=== PATIENT | male | born 1950 | race Caucasian/White ===

== ENCOUNTER 2016-05-01 09:47 | Inpatient (IN) | payer OTHER, BC ==
[2016-05-01 09:57] VITALS: BMI 38.9
--- NOTE | 2016-05-01 10:02 | PDOC ---
History of Present Illness - General History Source: Patient Exam Limitations: No Limitations - History of Present Illness Initial Comments: 05/01/16 11:34 The patient is a 66 year old male and presenting with his , with a significant past medical history of AFIB (Prodaxon), HTN and gastric bypass, who presents to the emergency department with right arm numbness and upper lip numbness onset this morning at 4am. He denies any weakness, slurred speech, facial droop or arm drift. The patient denies chest pain, shortness of breath, headache and dizziness. Denies fever, chills, nausea, vomit, diarrhea and constipation. Allergies: None Past surgical history: Gastric bypass. Social history: No alcohol, tobacco or drug use reported <Israel Franklin - Last Filed: 05/01/16 11:53> <Neville Zavala - Last Filed: 05/01/16 16:23> - General Chief Complaint: CVA/TIA Stated Complaint: RT HAND NUMBNESS Past History <Israel Franklin - Last Filed: 05/01/16 11:53> - Past Medical History Anemia: No Asthma: No Cancer: No Cardiac Disorders: Yes (AFIB) CVA: No COPD: No CHF: No Dementia: No Diabetes: No GI Disorders: Yes (gastric bypass) Disorders: No HTN: Yes Hypercholesterolemia: No Liver Disease: No Suicide Attempt (Hx): No Seizures: No Thyroid Disease: No - Surgical History Abdominal Surgery: (GASTRIC BYPASS) Appendectomy: No Cardiac Surgery: No Cholecystectomy: No Lung Surgery: No Neurologic Surgery: No Orthopedic Surgery: Yes (FX (L) ANKLE) - Psycho/Social/Smoking Cessation Hx Anxiety: No Suicidal Ideation: No Smoking Status: No Smoking History: Never smoked Have you smoked in the past 12 months: No Number of Cigarettes Smoked Daily: 0 Information on smoking cessation initiated: No Hx Alcohol Use: No Drug/Substance Use Hx: No Substance Use Type: None Hx Substance Use Treatment: No <Neville Zavala - Last Filed: 05/01/16 16:23> - Past Medical History Allergies/Adverse Reactions: Allergies Allergy/AdvReac Type Severity Reaction Status Date / Time No Known Allergies Allergy Verified 05/01/16 09:51 Home Medications: Ambulatory Orders Metoprolol Tartrate [Lopressor] 50 mg PO BID 05/03/11 Dabigatran Etexilate Mesylate [Pradaxa -] 150 mg PO BID cap 11/17/14 Amlodipine/Valsartan [Exforge 10-160 mg Tablet] 1 tab PO DAILY 05/01/16 Aspirin [ASA -] 81 mg PO DAILY 05/01/16 Review of Systems - Review of Systems Able to Perform ROS?: Yes Comments:: 05/01/16 11:34 GENERAL/CONSTITUTIONAL: No fever or chills. No weakness. HEAD, EYES, EARS, NOSE AND THROAT: No change in vision. No ear pain or discharge. No sore throat. CARDIOVASCULAR: No chest pain or shortness of breath RESPIRATORY: No cough, wheezing, or hemoptysis. GASTROINTESTINAL: No nausea, vomiting, diarrhea or constipation. GENITOURINARY: No dysuria, frequency, or change in urination. MUSCULOSKELETAL: No joint or muscle swelling or pain. No neck or back pain. SKIN: No rash NEUROLOGIC: +Numbness on right upper extremity and upper lip. No headache, vertigo, loss of consciousness. ENDOCRINE: No increased thirst. No abnormal weight change HEMATOLOGIC/LYMPHATIC: No anemia, easy bleeding, or history of blood clots. ALLERGIC/IMMUNOLOGIC: No hives or skin allergy. <Israel Franklin - Last Filed: 05/01/16 11:53> *Physical Exam - Vital Signs Last Vital Signs Temp Pulse Resp BP Pulse Ox 97.8 F 77 18 169/81 98 05/01/16 09:53 05/01/16 09:53 05/01/16 09:53 05/01/16 09:53 05/01/16 10:16 - Physical Exam Comments: 05/01/16 11:35 GENERAL: Awake, alert, and fully oriented, in no acute distress HEAD: No signs of trauma, normocephalic, atraumatic EYES: PERRLA, EOMI, sclera anicteric, conjunctiva clear ENT: Auricles normal inspection, hearing grossly normal, nares patent, oropharynx clear without exudates. Moist mucosa NECK: Normal ROM, supple, no lymphadenopathy, JVD, or masses LUNGS: No distress, speaks full sentences, clear to auscultation bilaterally HEART: Regular rate and rhythm, normal S1 and S2, no murmurs, rubs or gallops, peripheral pulses normal and equal bilaterally. ABDOMEN: Soft, nontender, normoactive bowel sounds. No guarding, no rebound. No masses EXTREMITIES: Normal inspection, Normal range of motion, no edema. No clubbing or cyanosis. NEUROLOGICAL: Cranial nerves II through XII grossly intact. Normal speech, normal gait. Sensory deficits right hand and around lip. SKIN: Warm, Dry, normal turgor, no rashes or lesions noted. <Israel Franklin - Last Filed: 05/01/16 11:53> - Vital Signs Last Vital Signs Temp Pulse Resp BP Pulse Ox 97.8 F 77 18 169/81 100 05/01/16 09:53 05/01/16 09:53 05/01/16 09:53 05/01/16 09:53 05/01/16 09:53 <Neville Zavala - Last Filed: 05/01/16 16:23> Critical Care Time/MDM Note - Medical Decision Making Note: 05/01/16 11:36 Chest X-Ray Reviewed by: Dr. Rizwan Gaffney Impression: No acute intrathoracic abnormality see and no significant interval change since prior exam. Dr. Karlos Rose was called regarding the patient at 10:30am. Dr. Abbey Moss covering. Dr. Moss was consulted regarding the patient at 10:34am [phone] Dr. Naeem Juarez was consulted regarding the patient at 10:38am [phone] <Israel Franklin - Last Filed: 05/01/16 11:53> Discharge Disposition <Israel Franklin - Last Filed: 05/01/16 11:53> - Discharge Dispostion Admit: Yes <Neville Zavala - Last Filed: 05/01/16 16:23> - Diagnosis Cerebrovascular accident (CVA) - Discharge Dispostion Condition at time of disposition: Stable - Referrals Referrals: Karlos Rose MD [Primary Care Provider] -
[2016-05-01 10:50] LABS: BASOPHIL 0.6 % (0-2.0); EOSINOPHIL 2.5 % (0-4.5); MCH 31.8 pg (25.7-33.7); MCHC 32.9 g/dl (32.0-35.9); MEAN CELL VOLUME 96.7 fl (80-96); MEAN PLT VOLUME 9.1 fl (7.5-11.1); NEUTROPHILS 48.2 % (42.8-82.8); PLATELET COUNT 177 K/MM3 (134-434); RDW 15.2 % (11.9-15.9); WHITE BLOOD COUNT 4.2 K/mm3 (4.0-10.0)
[2016-05-01 11:22] LABS: ALBUMIN 3.8 g/dl (3.4-5.0); ANION GAP 6 (8-16); CALCIUM 8.7 mg/dL (8.5-10.1); CO2 29 mmol/L (21-32); GLUCOSE,RANDOM 107 mg/dL (74-106); SGOT/AST 23 U/L (15-37); SGPT/ALT 24 U/L (12-78)
[2016-05-01 11:23] LABS: INR 1.13 (0.82-1.09); PROTHROMBIN TIME (PATIENT) 12.5 SEC (9.98-11.88)
[2016-05-01 11:27] LABS: ALK PHOS 70 U/L (45-117); BILIRUBIN,TOTAL 0.5 mg/dL (0.2-1.0); CREATININE 0.9 mg/dL (0.7-1.3); TOT PROT 7.3 g/dl (6.4-8.2); TROPONIN I 0.07 ng/ml (0.00-0.05)
[2016-05-01] MEDS ORDERED: PATIENT'S OWN MEDICATION (NON-FORMULARY) (Amlodipine/Valsartan [Exforge 10-160 Mg Tablet] PO SCH (19:45)
[2016-05-01] MEDS ORDERED: ALPRAZolam 0.25 MG TABLET PO PRN (21:19)
--- NOTE | 2016-05-01 21:31 | CONSULT ---
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 Maintained on Pradoxa, diovan, metoprolol, norvasc, lipitor and ASA. Depressed since of his daughter at age 26 from endometrial cancer in 2014. Three days ago, he recovered his 5 yo grandson by court order. Last night at 4 AM he was awake because of "thinking too much about the politician." He went to the kitchen and poured OJ without difficulty. Then, he developed numbness of the fingers of the right hand and around his mouth. Denies SOB, chest pain, etc. Symptoms had fully resolved by 1 PM In ER BP was 160/100. Weight was [address] of head (reviewed): Normal. Some calcification of the basilar artery MRI of Brain (reviewed): Scattered microvascular changes. EXAM: Obese. No bruits. Cor reg (?). Psoriatic changes over elbows. NEURO: Alert, Normal MS and speech CN: II-XII: Normal. Motor: Min upward drift on right. Normal strength. Normal reflexes. Normal UMAIR's. Downgoing toes. Coord: No FTN dystaxia Sensory: Normal vibration in feet. Romberg neg. Decreased pinprick over tips of Dig II, and III on Right. Gait: Normal; IMP: Left cerebral TIA vs lacunar infarct. Patient may also have a right carpal tunnel syndrome. Depression/anxiety. SUGGEST: Keep BP in 110-120/70-80 range. Test glucose tolerance. Agree with Carotid duplex Dopplers tonight. Continue pradoxa. Weight loss Neuro f/u as out patient. Thank you very much, Naeem Juarez MD
[2016-05-01] MEDS ORDERED: ATORVASTATIN CA 10 MG TABLET (FP) PO SCH (22:00)
[2016-05-01] MEDS: METOPROLOL TARTRATE 50 MG TABLET (FP) PO SCH (22:18)
[2016-05-01] MEDS: VALSARTAN 160 MG TABLET (UD) PO SCH (22:18)
[2016-05-01] MEDS: amLODIPine BESYLATE 10 MG TABLET (FP) PO SCH (22:18)
--- NOTE | 2016-05-01 23:15 | EKG ---
Test Reason : Blood Pressure : / mmHG Vent. Rate : 062 BPM Atrial Rate : 091 BPM P-R Int : 000 ms QRS Dur : 134 ms QT Int : 428 ms P-R-T Axes : 000 032 030 degrees QTc Int : 434 ms ATRIAL FIBRILLATION RIGHT BUNDLE BRANCH BLOCK ABNORMAL ECG WHEN COMPARED WITH ECG OF 17-NOV-2014 08:51, NO SIGNIFICANT CHANGE WAS FOUND Confirmed by ABHAY MINAYA MD ([id number]) on 05/01/2016 11:15:07 PM Referred By: Confirmed By:ABHAY MINAYA MD
[2016-05-01] MEDS: DABIGATRAN ETEXILATE MESYLATE 150 MG CAPSULE PO SCH (23:26)
[2016-05-02 07:10] LABS: BASOPHIL 0.6 % (0-2.0); EOSINOPHIL 2.2 % (0-4.5); MCH 31.7 pg (25.7-33.7); MEAN PLT VOLUME 8.3 fl (7.5-11.1); NEUTROPHILS 46.4 % (42.8-82.8); PLATELET COUNT 157 K/MM3 (134-434); RDW 14.8 % (11.9-15.9); WHITE BLOOD COUNT 3.2 K/mm3 (4.0-10.0)
[2016-05-02 08:24] LABS: ALBUMIN 3.6 g/dl (3.4-5.0); ALK PHOS 64 U/L (45-117); ANION GAP 8 (8-16); BILIRUBIN,TOTAL 0.6 mg/dL (0.2-1.0); CALCIUM 8.8 mg/dL (8.5-10.1); CHOLESTEROL 219 mg/dL (50-200); CO2 28 mmol/L (21-32); CREATININE 0.8 mg/dL (0.7-1.3); GLUCOSE,RANDOM 105 mg/dL (74-106); LDL CHOLESTEROL (ONLY SJRH) 144 mg/dL (5-100); SGOT/AST 22 U/L (15-37); SGPT/ALT 25 U/L (12-78); TOT PROT 6.9 g/dl (6.4-8.2)
[2016-05-02] MEDS ORDERED: PT OWN MED DRAWER 7, Y5N ONE (08:49)
[2016-05-02 09:09] VITALS: BP 150/91; PULSE 83; TEMP 97.8
[2016-05-02] MEDS: DABIGATRAN ETEXILATE MESYLATE 150 MG CAPSULE PO SCH (09:09)
[2016-05-02] MEDS: amLODIPine BESYLATE 10 MG TABLET (FP) PO SCH (09:09)
[2016-05-02] MEDS: METOPROLOL TARTRATE 50 MG TABLET (FP) PO SCH (09:09)
[2016-05-02] MEDS: VALSARTAN 160 MG TABLET (UD) PO SCH (09:10)
--- NOTE | 2016-05-02 09:13 | CON.CARD ---
Consult Consult Specialty:: Cardiology Referred by:: Karlos Rose MD, Abbey Kennedy MD Reason for Consultation:: Stroke/TIA - History of Present Illness Chief Complaint: Parasthesias, numbness History of Present Illness: 66 yo man with H/O HTN, Chol, ASHD, Afib presented with numbness of the fingers of the right hand and around his mouth which have since resolved. He denies SOB , chest pain, near or true syncope, palpitations, orthopnea, PND or LE edema. He admits to not taking Pradaxa yesterday. CT of head (reviewed): Normal. Some calcification of the basilar artery MRI of Brain (reviewed): Left frontal focal cortical/subcortical acute/subacute infarct - History Source History Provided By: Patient Limitations to Obtaining History: No Limitations - Past Medical History Cardio/Vascular: Yes: AFIB, CAD, HTN, Hyperlipdemia Pulmonary: Yes: Sleep Apnea (on cpap) - Past Surgical History Past Surgical History: Yes: CABG - Alcohol/Substance Use Hx Alcohol Use: No History of Substance Use: reports: None - Smoking History Smoking history: Never smoked Have you smoked in the past 12 months: No Aproximately how many cigarettes per day: 0 - Social History 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 Home Medications - Allergies Allergies/Adverse Reactions: Allergies Allergy/AdvReac Type Severity Reaction Status Date / Time No Known Allergies Allergy Verified 05/01/16 09:51 - Home Medications Home Medications: Ambulatory Orders Metoprolol Tartrate [Lopressor] 50 mg PO BID 05/03/11 Dabigatran Etexilate Mesylate [Pradaxa -] 150 mg PO BID cap 11/17/14 Amlodipine/Valsartan [Exforge 10-160 mg Tablet] 1 tab PO DAILY 05/01/16 Aspirin [ASA -] 81 mg PO DAILY 05/01/16 Family Disease History - Family Disease History Family Disease History: CA: Mother (pancreatic cancer), Other: Father (?) Review of Systems - Review of Systems Neurological: reports: Numbness, Parasthesia Vital Signs: Vital Signs Temperature 97.8 F 05/02/16 09:08 Pulse Rate 83 05/02/16 09:08 Respiratory Rate 20 05/02/16 09:08 Blood Pressure 150/91 05/02/16 09:08 O2 Sat by Pulse Oximetry (%) 99 05/01/16 22:43 Constitutional: Yes: No Distress, Calm Neck: Yes: Supple Respiratory: Yes: Regular, CTA Bilaterally Gastrointestinal: Yes: Normal Bowel Sounds, Soft Cardiovascular: Yes: Pulse Irregular JVD: No Carotid Bruit: No Heart Sounds: Yes: S1, S2 Edema: No - Other Data Labs, Other Data: CBC, BMP 05/02/16 06:05 05/02/16 06:05 INR, PTT INR 1.13 (0.82-1.09) 05/01/16 10:25 Imaging - Results Chest X-ray: Report Reviewed (NAD) MRI: Report Reviewed (Left frontal focal cortical/subcortical acute/subacute infarct) Problem List - Problems (1) CVA (cerebrovascular accident) Code(s): I63.9 - CEREBRAL INFARCTION, UNSPECIFIED Qualifiers: CVA mechanism: unspecified Qualified Code(s): I63.9 - Cerebral infarction, unspecified (2) Afib Code(s): I48.91 - UNSPECIFIED ATRIAL FIBRILLATION Qualifiers: Atrial fibrillation type: persistent Qualified Code(s): I48.1 - Persistent atrial fibrillation (3) HTN (hypertension) Code(s): I10 - ESSENTIAL (PRIMARY) HYPERTENSION Qualifiers: Hypertension type: essential hypertension Qualified Code(s): I10 - Essential (primary) hypertension (4) Hypercholesteremia Code(s): E78.0 - PURE HYPERCHOLESTEROLEMIA * DO NOT USE * Assessment/Plan 1. Left cerebral TIA vs lacunar infarct. 2. HTN/HCVD 3. Persistent afib on NOAC 4. Hyperlipidemia P:1. F/u echocardiogram to assess ventricular and valvular fxn, carotid dopplers 2. Continue Metoprolol Tartrate [Lopressor] 50 mg PO BID, Dabigatran Etexilate Mesylate [Pradaxa -] 150 mg PO BID, Amlodipine/Valsartan [Exforge 10-160 mg Tablet] 1 tab PO DAILY, Aspirin [ASA -] 81 mg PO DAILY 05/01/16 3. Emphasized importance of medication compliance 4. Thank you for consultative opportunity, will review outpatient records
--- NOTE | 2016-05-02 09:39 | HP ---
Admitting History and Physical - Primary Care Physician PCP: Karlos Rose - Admission Chief Complaint: numbness of fingers and mouth History of Present Illness: ER HISTORY - History of Present Illness Initial Comments: 05/01/16 11:34 The patient is a 66 year old male and presenting with his , with a significant past medical history of AFIB (Prodaxon), HTN and gastric bypass, who presents to the emergency department with right arm numbness and upper lip numbness onset this morning at 4am. He denies any weakness, slurred speech, facial droop or arm drift. The patient denies chest pain, shortness of breath, headache and dizziness. Denies fever, chills, nausea, vomit, diarrhea and constipation. Allergies: None Past surgical history: Gastric bypass. Social history: No alcohol, tobacco or drug use reported Pt seen by me today As per pt, he has been experiencing numbness at tip of right fingers and numbness around his mouth yesterday in the morning- no weakness. He has been suffering from depression ever since of his daughter from uterine CA a year ago and he gained custody of his grandson 3 days ago. Denies any chest pain , SOB , blurry vision and slurred speech Today he has no complaints- wants to go home He admits he was recently changed to Pradaxa 150mg from 75 mg for Afib and has not been taking it consistently History Source: Patient Limitations to Obtaining History: No Limitations - Past Medical History Cardiovascular: Yes: AFIB, CAD, HTN, Hyperlipdemia Pulmonary: Yes: Sleep Apnea (on cpap) - Past Surgical History Past Surgical History: Yes: CABG - Smoking History Smoking history: Never smoked Have you smoked in the past 12 months: No Aproximately how many cigarettes per day: 0 - Alcohol/Substance Use Hx Alcohol Use: No History of Substance Use: reports: None - Social History 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 Home Medications - Allergies Allergies/Adverse Reactions: Allergies Allergy/AdvReac Type Severity Reaction Status Date / Time No Known Allergies Allergy Verified 05/01/16 09:51 - Home Medications Home Medications: Ambulatory Orders Metoprolol Tartrate [Lopressor] 50 mg PO BID 05/03/11 Dabigatran Etexilate Mesylate [Pradaxa -] 150 mg PO BID cap 11/17/14 Amlodipine/Valsartan [Exforge 10-160 mg Tablet] 1 tab PO DAILY 05/01/16 Aspirin [ASA -] 81 mg PO DAILY 05/01/16 Family Disease History - Family Disease History Family Disease History: CA: Mother (pancreatic cancer), Other: Father (?) Review of Systems - Review of Systems Constitutional: denies: Chills, Fever, Loss of Appetite, Weakness Cardiovascular: denies: Chest Pain, Shortness of Breath Neurological: reports: No Symptoms Physical Examination Vital Signs: Vital Signs Temperature 97.8 F 05/02/16 09:08 Pulse Rate 83 05/02/16 09:08 Respiratory Rate 20 05/02/16 09:08 Blood Pressure 150/91 05/02/16 09:08 O2 Sat by Pulse Oximetry (%) 99 05/01/16 22:43 Constitutional: Yes: No Distress, Calm Cardiovascular: Yes: Pulse Irregular Respiratory: Yes: CTA Bilaterally Gastrointestinal: Yes: Normal Bowel Sounds, Soft, Abdomen, Obese. No: Distention, Tenderness Edema: No Neurological: Yes: WNL, Cran Nerves II-XII Intact. No: Facial Droop, Numbness, Tingling, Tremors, Unsteady Gait, Weakness Psychiatric: Yes: WNL Labs: CBC, BMP 05/02/16 06:05 05/02/16 06:05 Imaging - Results Chest X-ray: Image Reviewed (clear) Cat Scan: Report Reviewed MRI: Report Reviewed EKG: Image Reviewed (Afib) Problem List - Problems (1) Afib Code(s): I48.91 - UNSPECIFIED ATRIAL FIBRILLATION Qualifiers: Atrial fibrillation type: persistent Qualified Code(s): I48.1 - Persistent atrial fibrillation (2) CAD (coronary artery disease) Code(s): I25.10 - ATHSCL HEART DISEASE OF [place] CORONARY ARTERY W/O ANG PCTRS Qualifiers: Coronary Disease-Associated Artery/Lesion type: [place] artery (3) HTN (hypertension) Code(s): I10 - ESSENTIAL (PRIMARY) HYPERTENSION Qualifiers: Hypertension type: essential hypertension Qualified Code(s): I10 - Essential (primary) hypertension (4) Hypercholesteremia Code(s): E78.0 - PURE HYPERCHOLESTEROLEMIA * DO NOT USE * (5) TIA (transient ischemic attack) Code(s): G45.9 - TRANSIENT CEREBRAL ISCHEMIC ATTACK, UNSPECIFIED Qualifiers: Transient cerebral ischemia type: unspecified Qualified Code(s): G45.9 - Transient cerebral ischemic attack, unspecified Assessment/Plan PLAN -- MRI shows lacunar infarct but as per Neurology , no CVA-- microvasculr changes -- Start Lipitor -- continue with meds -- spoke with licensed aircraft maintenance engineer about non compliance with Pradaxa-- he will change it to Eliquis -- OOB -- Echo ordered -- carotid doppler negative -- DVT prophylaxis-- Arielle
[2016-05-02] MEDS ORDERED: ASPIRIN 81 MG CHEWABLE TABLETS PO SCH (10:00)
[2016-05-02] MEDS ORDERED: APIXABAN 5 MG TABLET PO SCH (22:00)
== END 2016-05-02 14:51 | disposition home or self-care (01) | DRG 65 ==
LOC: JER 09:47 → JERBED 17:01 → J4S 18:30
PROVIDERS: ADMIT Internal Medicine; ATTEND Internal Medicine
DX: I63.9 Cerebral infarction, unspecified (principal); I48.1 Persistent atrial fibrillation; I25.810 Atherosclerosis of coronary artery bypass graft(s) without angina pectoris; I10 Essential (primary) hypertension; E78.5 Hyperlipidemia, unspecified; F32.9 Major depressive disorder, single episode, unspecified; F41.9 Anxiety disorder, unspecified; E66.9 Obesity, unspecified; Z68.38 Body mass index [BMI] 38.0-38.9, adult; Z98.84 Bariatric surgery status; Z95.1 Presence of aortocoronary bypass graft; Z79.01 Long term (current) use of anticoagulants
CPT/HCPCS: 36415; 70450-TC; 70551-TC; 71010-TC; 80053; 80061; 82550; 83721; 84484; 85025; 85610; 85730; 93005; 93010; 93306-TC; 93880-TC; 94660; 97116-GP; 97161-GP; 99285-25

== ENCOUNTER 2016-05-30 20:17 | Observation (INO) | payer OTHER, BC ==
--- NOTE | 2016-05-30 20:40 | PDOC ---
History of Present Illness - General History Source: Patient <Israel Nelson - Last Filed: 05/30/16 22:29> - General History Source: Patient Exam Limitations: No Limitations - History of Present Illness Initial Comments: 05/30/16 21:06 The patient is a 66 year old male with significant past medical history of CVA/ TIA, a-fib, hypertension, and hyperlipidemia who presents to the ED with 1 day of difficulty swallowing and intermittent left arm discomfort. Patient was seen in the ER for right arm numbness and upper lip numbness where he was admitted for r/o stroke. During his admission, patient had a MRI that revealed lacunar infarct but as per Neurology, no CVA - microvascular changes. Patient presents today with 1 day of difficulty swallowing and intermittent nonradiating left arm discomfort. He denies slurred speech, facial droop, focal weakness or paresthesias, blurry vision, or bowel/bladder incontinence. He also denies diaphoresis, lightheadedness, chest pain, SOB, jaw pain, nausea, or vomiting. Patient denies any trauma to his left arm. The patient denies fever, chills, cough, abdominal pain, and diarrhea. Allergies: NKDA Social History: No alcohol, tobacco, or drug use reported. Past Surgical History: CABG, gastric bypass, left ankle fx s/p repair PCP: Dr. Karlos Rose <Nicole Alvarado - Last Filed: 05/30/16 23:28> - General Chief Complaint: CVA/TIA Stated Complaint: POSSIBLE STROKE Time Seen by Provider: 05/30/16 20:39 Past History - Past Medical History Anemia: No Asthma: No Cancer: No Cardiac Disorders: Yes (AFIB) CVA: No COPD: No CHF: No Dementia: No Diabetes: No GI Disorders: Yes (gastric bypass) Disorders: No HTN: Yes Hypercholesterolemia: No Liver Disease: No Suicide Attempt (Hx): No Seizures: No Thyroid Disease: No - Surgical History Abdominal Surgery: (GASTRIC BYPASS) Appendectomy: No Cardiac Surgery: No Cholecystectomy: No Lung Surgery: No Neurologic Surgery: No Orthopedic Surgery: Yes (FX (L) ANKLE) - Psycho/Social/Smoking Cessation Hx Anxiety: No Suicidal Ideation: No Smoking Status: No Smoking History: Never smoked Have you smoked in the past 12 months: No Number of Cigarettes Smoked Daily: 0 Hx Alcohol Use: No Drug/Substance Use Hx: No Substance Use Type: None Hx Substance Use Treatment: No <OmarIsrael - Last Filed: 05/30/16 22:29> <Nicole Alvarado - Last Filed: 05/30/16 23:28> - Past Medical History Allergies/Adverse Reactions: Allergies Allergy/AdvReac Type Severity Reaction Status Date / Time No Known Allergies Allergy Verified 05/30/16 20:27 Home Medications: Ambulatory Orders Metoprolol Tartrate [Lopressor] 50 mg PO BID 05/03/11 Amlodipine/Valsartan [Exforge 10-160 mg Tablet] 1 tab PO DAILY 05/01/16 Aspirin [ASA -] 81 mg PO DAILY 05/01/16 Apixaban [Eliquis -] 5 mg PO BID #60 tablet 05/02/16 Atorvastatin Ca [Lipitor] 10 mg PO HS #30 tablet 05/02/16 Review of Systems - Review of Systems Able to Perform ROS?: Yes Comments:: 05/30/16 21:06 CONSTITUTIONAL: Absent: fever, chills, diaphoresis, generalized weakness, malaise, loss of appetite HEENT: +difficulty swallowing Absent: rhinorrhea, nasal congestion, throat pain, throat swelling, mouth swelling, ear pain, eye pain, visual Changes CARDIOVASCULAR: Absent: chest pain, syncope, palpitations, irregular heart rate, lightheadedness , peripheral edema RESPIRATORY: Absent: cough, shortness of breath, dyspnea with exertion, orthopnea, wheezing, stridor, hemoptysis GASTROINTESTINAL: Absent: abdominal pain, abdominal distension, nausea, vomiting, diarrhea, constipation, melena, hematochezia GENITOURINARY: Absent: dysuria, frequency, urgency, hesitancy, hematuria, flank pain, genital pain MUSCULOSKELETAL: +left arm discomfort Absent: arthralgia, joint swelling SKIN: Absent: rash, itching, pallor NEUROLOGIC: Absent: headache, focal weakness or paresthesias, dizziness, unsteady gait, seizure, mental status changes, bladder or bowel incontinence PSYCHIATRIC: Absent: anxiety, depression, suicidal or homicidal ideation, hallucinations. <Nicole Alvarado - Last Filed: 05/30/16 23:28> *Physical Exam - Vital Signs Last Vital Signs Temp Pulse Resp BP Pulse Ox 98 F 64 18 155/83 98 05/30/16 20:28 05/30/16 20:28 05/30/16 20:28 05/30/16 20:28 05/30/16 20:28 <TjIsrael moulton - Last Filed: 05/30/16 22:29> - Vital Signs Last Vital Signs Temp Pulse Resp BP Pulse Ox 98 F 64 18 155/83 98 05/30/16 20:28 05/30/16 20:28 05/30/16 20:28 05/30/16 20:28 05/30/16 20:28 - Physical Exam Comments: 05/30/16 21:06 GENERAL: Well developed, well nourished. Awake and alert. No acute distress. HEENT: Normocephalic, atraumatic. PERRLA, EOMI. No conjunctival pallor. Sclera are non- icteric. Moist mucous membranes. Oropharynx is clear. NECK: Supple. Full ROM. No JVD. Carotid pulses 2+ and symmetric, without bruits. No thyromegaly. No lymphadenopathy. CARDIOVASCULAR: Regular rate and rhythm. No murmurs, rubs, or gallops. Distal pulses are 2+ and symmetric. PULMONARY: No evidence of respiratory distress. Lungs clear to auscultation bilaterally. No wheezing, rales or rhonchi. ABDOMINAL: Soft. Non-tender. Non-distended. No rebound or guarding. No organomegaly. Normoactive bowel sounds. MUSCULOSKELETAL Normal range of motion at all joints. No bony deformities or tenderness. No CVA tenderness. EXTREMITIES: No cyanosis. No clubbing. No edema. No calf tenderness. SKIN: Warm and dry. Normal capillary refill. No rashes. No jaundice. NEUROLOGICAL: Alert, awake, appropriate. Cranial nerves 2-12 intact. No deficits to light touch and temperature in face, upper extremities and lower extremities. No motor deficits in the in face, upper extremities and lower extremities. Normoreflexic in the upper and lower extremities. Normal speech. PSYCHIATRIC: Cooperative. Good eye contact. Appropriate mood and affect. <Nicole Alvarado - Last Filed: 05/30/16 23:28> NIH Stroke Scale - Last Known Well Date/Time & Onset Date Last Known Well: 05/29/16 Time Last Known Well: 08:00 - Initial Evaluation Level of consciousness: Alert Ask patient the month and their age: Answers both correctly Ask patient to open & close eyes; make fist and let go: Obeys both correctly Best gaze (horizontal eye movement): Normal Visual field testing: No visual field loss Facial paresis (Show teeth/raise eyebrows/close eyes tight): Normal symmetrical movement Motor Function: Left Arm: Normal Motor Function: Right Arm: Normal (extends arm 90 (or 45) degrees for 10 seconds without drift Motor Function: Left Leg: Normal (extends leg 30 degrees for 5 seconds without drift) Motor Function: Right Leg: Normal (extends leg 30 degrees for 5 seconds without drift) Limb Ataxia: No ataxia Sensory(Use pinprick test arms,legs,trunk,face/side to side): Normal Best language (Describe picture, name items, read sentences): No Aphasia Dysarthria (read several words): Normal articulation Extinction and Inattention: No abnormality - Total Score NIH Stroke Scale Score: 0 <Israel Nelson - Last Filed: 05/30/16 22:29> tPA Exclusion checklist 3-4.5h - Time Elapsed Date last known well: 05/29/16 Time last known well: 08:00 Elaspsed time: 1 Day(s) and 14 Hour(s) and 29 Minutes - Thrombolytic Therapy Candidate Is patient eligible for thrombolytic therapy: No - Exclusion Criteria 3-4.5 hr SBP greater than 185 or DBP greater than 110mmHg despite tx: No Recent IC/spinal surgery,head trauma or stroke<3mos.: No Hx IC hemorrhage, IC neoplasm, AV malformation or aneurysm: No Active internal bleeding: No Blding diathesis(low plt ct, inc PTT,INR>1.7 or use of NOAC): No CT demonstrates multilobar infarct(>1/3 cerebral hemiphere): No Arterial puncture at noncompressible site in previous 7 days: No Blood glucose concentration less than 50mg/dL (2.7mmol/L): No - Relative Exclusion Criteria 3-4.5 hr Life expectancy <1 yr or severe co-morbid illness: No : No Patient/family refused: No Rapid improvement: No Stroke severity too mild: No Recent acute IN (w/in previous 3 months): No Seizure at onset with postictal residual neuro impairments: No Major surgery or serious trauma w/in previous 14 days: No Recent GI or hemorrhage (w/in previous 21 days): No - Add'l Relative Exclusion 3-4.5 hr Age > 80: No Hx of both diabetes AND prior ischemic stroke: No Taking an oral anticoagulant regardless of INR: Yes NIHSS >25: No - Ineligibility reason(s) Reasons No tPA given: Outside of window - delayed arrival (symptoms started yesterday morning) <Israel Nelson - Last Filed: 05/30/16 22:29> Heart Score/ECG Review - ECG Impressions Comment:: 05/30/16 23:27 A-fib @89bpm RBBB Abnormal ECG <Nicole Alvarado - Last Filed: 05/30/16 23:28> Critical Care Time/MDM Note - Medical Decision Making Note: 05/30/16 22:29 Dr. Nelson: The scribe's documentation has been prepared under my direction and personally reviewed by me in its entirery. I confirm that the note above accurately reflects all work, treatment, procedures, and medical decision making performed by me. No acute intracranial process on CT of brain. Patient will be admitted to [facility]. spoke to Dr. Abbey Kennedy who will write orders for admission <Israel Nelson - Last Filed: 05/30/16 22:29> - Medical Decision Making Note: 05/30/16 22:[address] Abbey Kennedy (via answering service) at 22:15 Awaiting call back Patient's case discussed with Dr. Kennedy at 22:24 <Nicole Alvarado - Last Filed: 05/30/16 23:28> Discharge Disposition - Discharge Dispostion Last Admission D/C Date: 05/02/16 Admit: Yes <Israel Nelson - Last Filed: 05/30/16 22:29> - Post Discharge Activity Activity Comments: Documentation prepared by Nicole Alvarado, acting as medical billing instructor for Israel Nelson MD. <Nicole Alvarado - Last Filed: 05/30/16 23:28> - Diagnosis Dysphagia Qualifiers: Dysphagia type: unspecified Qualified Code(s): R13.10 - Dysphagia, unspecified - Referrals
[2016-05-30 21:21] LABS: BASOPHIL 0.7 % (0-2.0); EOSINOPHIL 1.1 % (0-4.5); MCH 31.7 pg (25.7-33.7); MCHC 33.1 g/dl (32.0-35.9); MEAN PLT VOLUME 9.4 fl (7.5-11.1); NEUTROPHILS 62.8 % (42.8-82.8); PLATELET COUNT 178 K/MM3 (134-434); RDW 14.3 % (11.9-15.9); WHITE BLOOD COUNT 5.4 K/mm3 (4.0-10.0)
[2016-05-30 21:47] LABS: INR 1.29 (0.82-1.09); PROTHROMBIN TIME (PATIENT) 14.3 SEC (9.98-11.88)
[2016-05-30 21:54] LABS: ALBUMIN 3.9 g/dl (3.4-5.0); ALK PHOS 77 U/L (45-117); ANION GAP 11 (8-16); BILIRUBIN,TOTAL 0.5 mg/dL (0.2-1.0); CALCIUM 8.7 mg/dL (8.5-10.1); CO2 26 mmol/L (21-32); CREATININE 0.8 mg/dL (0.7-1.3); GLUCOSE,RANDOM 90 mg/dL (74-106); SGPT/ALT 29 U/L (12-78); TOT PROT 7.6 g/dl (6.4-8.2)
[2016-05-30 21:57] LABS: MAGNESIUM 2.2 mg/dL (1.8-2.4); SGOT/AST 30 U/L (15-37); TROPONIN I 0.07 ng/ml (0.00-0.05)
[2016-05-30] MEDS: SODIUM CHLORIDE 0.45% 1,000 ML IV SCH (22:54)
[2016-05-31 03:58] VITALS: BMI 39.2
[2016-05-31 07:53] LABS: BASOPHIL 0.6 % (0-2.0); EOSINOPHIL 1.5 % (0-4.5); MCH 32.1 pg (25.7-33.7); MCHC 33.3 g/dl (32.0-35.9); MEAN CELL VOLUME 96.3 fl (80-96); MEAN PLT VOLUME 8.8 fl (7.5-11.1); NEUTROPHILS 61.6 % (42.8-82.8); PLATELET COUNT 141 K/MM3 (134-434); RDW 14.5 % (11.9-15.9); WHITE BLOOD COUNT 4.3 K/mm3 (4.0-10.0)
[2016-05-31 08:23] LABS: ALBUMIN 3.4 g/dl (3.4-5.0); ANION GAP 6 (8-16); BILIRUBIN,TOTAL 0.9 mg/dL (0.2-1.0); CALCIUM 8.1 mg/dL (8.5-10.1); CO2 30 mmol/L (21-32); CREATININE 0.8 mg/dL (0.7-1.3); GLUCOSE,RANDOM 102 mg/dL (74-106); SGOT/AST 21 U/L (15-37); SGPT/ALT 25 U/L (12-78); TOT PROT 6.6 g/dl (6.4-8.2)
[2016-05-31 08:24] LABS: ALK PHOS 74 U/L (45-117)
[2016-05-31] MEDS ORDERED: ASPIRIN 81 MG CHEWABLE TABLETS PO SCH (10:00)
--- NOTE | 2016-05-31 10:20 | CONSULT ---
Admitting History and Physical - Primary Care Physician PCP: Abbey Kennedy - Admission History of Present Illness: Pt admitted through ER with c/o right arm numbness and upper lip numbness. PMH include: AFIB, HTN and gastric bypass 10-15 years ago,Sleep apnea. He sleeps with a CPAP machine nightly but reports that the mask does not have a good seal and he wakes up frequently. He takes sleeping pills but they are not affective. He does not have a sleep doctor. Pt is bilingual, with fair [place]. However, pt's son served as universal branch consultant to clarify pts medical symptoms. Pt reports repeated sudden onset of chest/throat tightness with difficulty breathing and phonating.It happens suddenly, "like lightning" and then it quickly stops.He has associated tingling,in left facial area.Yesterday afternoon it happened repeatedly "all afternoon." This occurs " at anytime", night or day, when relaxing and nbot necessarily upon exertion. Not associated with PO intake. He denies difficulty swallowing,per se, but has a limited appetite. He says sometimes food gets "stuck" briefly, but then passes. He denies GERD. Gastric bypass was many years ago. 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 History - Admission Reason For Visit: DYSPHAGIA - Diagnostics X-ray: Report Reviewed CT Scan: Report Reviewed MRI: Report Reviewed - General Mental Status: Alert and Oriented, Awake and Alert, Able to Follow Commands Attention: Intact Ability to Follow Directions: Excellent Head/Neck Control: WFL - Hearing Hearing: Normal, Both Hearing Aide: No With Patient: No Speech Evaluation - Communication Primary Language: UKRAINIAN Secondary Language: ARMENIAN (fair) Communication: Yes: Within Normal Limits, Language Barrier Oral Expression Ability: Yes: No Impairment - Speech Production Able to Make Needs Known: Yes: WNL Intelligibility: Yes: WNL - Speech Characteristics Voice Loudness: Normal Voice Pitch: Yes: Normal Voice Phonatory-based Quality: Yes: Normal Speech Pattern: Normal Speech Clarity: < 100% Nasal Resonance: Normal Articulation: Yes: Precise - Language/Auditory Comprehension Follows: Yes: Complex Commands - Language/Verbal Expression Able to Respond to Simple Queries: Yes: WNL Able to Communicate Wants and Needs: Yes: WNL Functional Communication Status: Yes: WNL - Memory/Perception senior care Memory: Yes: WNL Short Term Memory: Yes: WNL - Swallow Evaluation/Bedside Assessment Current Nutritional Intake: NPO Oral Secretions: Yes: WFL Dentition: Yes: Adequate Facial Symmetry at Rest: Symmetrical Facial Symmetry on Retraction: Symmetrical Facial Movement: Controlled Against Resistance Opening: Normal Against Resistance Closing: Normal Pucker Lips: Normal Smile: Normal Lingual Movement: Normal Lingual Speed of Movement: Normal Lingual Movement Strgth Against Opposition: Normal Lingual Movement Characteristics: Normal Velopharyngeal Movement: Normal Laryngeal Elevation: WFL Laryngeal Movement: Able to Palpate Rate of Intake: WFL Labial Seal: WFL Chewing: WFL Oral Prep Time: WFL A-P Transit: WFL Pocketing: None Coughing/Throat Clear: No Change in Voice: No Recommendations - Speech Evaluation, Impression/Plan Impression: Speech/language/ cognition wnl. Swallowing w/u in progress. MBS ordered by PMD. Pt's medical symptoms discussed with Dr. Kennedy. Pt has been seen by Dr. Page and Dr. Juarez in the past. - Dysphagia Impressions/Plan Dysphagia Impressions: Mild Impairment (possibly esophageal?), Ongoing Evaluation *Silent aspiration: cannot be R/O at bedside Recommendations: Pulmonary Consult (Sleep apnea mgmt) - Recommendations Diet Consistency: Regular Medication Administration: Whole with water Liquids: Thin Liquids
[2016-05-31] MEDS ORDERED: PT OWN MED DRAWER 7, Y5N ONE ×2 (10:41→21:57)
[2016-05-31] MEDS: VALSARTAN 160 MG TABLET (UD) PO SCH (10:41)
[2016-05-31] MEDS: amLODIPine BESYLATE 10 MG TABLET (FP) PO SCH (10:42)
[2016-05-31] MEDS: APIXABAN 5 MG TABLET PO SCH ×2 (10:42→22:03)
[2016-05-31] MEDS: METOPROLOL TARTRATE 50 MG TABLET (FP) PO SCH ×2 (10:42→22:03)
[2016-05-31 11:42] LABS: URINE APPEARANCE CLEAR; URINE BILIRUBIN NEGATIVE (NEGATIVE); URINE BLOOD NEGATIVE (NEGATIVE); URINE COLOR LTYELLOW; URINE GLUCOSE (UA) NEGATIVE (NEGATIVE); URINE KETONE NEGATIVE (NEGATIVE); URINE LEUK ESTERASE NEGATIVE (NEGATIVE); URINE NITRITE NEGATIVE (NEGATIVE); URINE PROTEIN NEGATIVE (NEGATIVE); URINE UROBILINOGEN NEGATIVE E.U./dl (0.2-1.0)
[2016-05-31] MEDS ORDERED: clonazePAM 0.5 MG TABLET PO PRN (11:50)
--- NOTE | 2016-05-31 11:52 | HP ---
Admitting History and Physical - Primary Care Physician PCP: Karlos Rose - Admission Chief Complaint: choking sensation History of Present Illness: ER HISTORY - History of Present Illness Initial Comments: 05/30/16 21:06 The patient is a 66 year old male with significant past medical history of CVA/ TIA, a-fib, hypertension, and hyperlipidemia who presents to the ED with 1 day of difficulty swallowing and intermittent left arm discomfort. Patient was seen in the ER for right arm numbness and upper lip numbness where he was admitted for r/o stroke. During his admission, patient had a MRI that revealed lacunar infarct but as per Neurology, no CVA - microvascular changes. Patient presents today with 1 day of difficulty swallowing and intermittent nonradiating left arm discomfort. He denies slurred speech, facial droop, focal weakness or paresthesias, blurry vision, or bowel/bladder incontinence. He also denies diaphoresis, lightheadedness, chest pain, SOB, jaw pain, nausea, or vomiting. Patient denies any trauma to his left arm. The patient denies fever, chills, cough, abdominal pain, and diarrhea. Pt seen by me on the floors I know him from previous admission- he had microvascular changes, lacunar infarct on recent Brain MRI. He has h/o sleep apnea and has difficulty with the mask for sometime now. He has been experiencing a choking sensation- "like his mouth is closed and can't speak" along with left sided chest ,left arm tingling ,palpitations and dizziness. He had this all day yesterday but has experienced this in the past 2 - 3 weeks on and off. He had lost his daughter to uterine Ca a year ago and gained custody of her son recently. He admits to stress and he is tearful during our conversation. He has these episodes during the daytime- denies at it night, denies PND. Denies it when he was eating. 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 Home Medications - Allergies Allergies/Adverse Reactions: Allergies Allergy/AdvReac Type Severity Reaction Status Date / Time No Known Allergies Allergy Verified 05/30/16 20:27 - Home Medications Home Medications: Ambulatory Orders Metoprolol Tartrate [Lopressor] 50 mg PO BID 05/03/11 Amlodipine/Valsartan [Exforge 10-160 mg Tablet] 1 tab PO DAILY 05/01/16 Aspirin [ASA -] 81 mg PO DAILY 05/01/16 Apixaban [Eliquis -] 5 mg PO BID #60 tablet 05/02/16 Atorvastatin Ca [Lipitor] 10 mg PO HS #30 tablet 05/02/16 Family Disease History - Family Disease History Family Disease History: CA: Mother (pancreatic cancer), Other: Father (?) Review of Systems - Review of Systems Constitutional: denies: Chills, Fever, Lethargy, Unintentional Wgt. Loss Cardiovascular: reports: Chest Pain, Palpitations Respiratory: reports: Other (choking) Psychiatric: reports: Anxiety, Depression Physical Examination Vital Signs: Vital Signs Temperature 98.4 F 05/31/16 06:00 Pulse Rate 80 05/31/16 06:00 Respiratory Rate 18 05/31/16 06:00 Blood Pressure 133/82 05/31/16 06:00 O2 Sat by Pulse Oximetry (%) 95 05/31/16 04:05 Constitutional: Yes: No Distress, Calm Cardiovascular: Yes: Pulse Irregular Respiratory: Yes: CTA Bilaterally Gastrointestinal: Yes: Normal Bowel Sounds, Soft, Abdomen, Obese. No: Distention, Tenderness Edema: No Neurological: Yes: Alert, Oriented Psychiatric: Yes: Alert, Oriented Labs: CBC, BMP 05/31/16 07:30 05/31/16 07:30 Imaging - Results Chest X-ray: Image Reviewed (clear) Cat Scan: Report Reviewed (CT head- negative) EKG: Image Reviewed (Afib) Problem List - Problems (1) Afib Code(s): I48.91 - UNSPECIFIED ATRIAL FIBRILLATION Qualifiers: Atrial fibrillation type: persistent Qualified Code(s): I48.1 - Persistent atrial fibrillation (2) CAD (coronary artery disease) Code(s): I25.10 - ATHSCL HEART DISEASE OF [place] CORONARY ARTERY W/O ANG PCTRS Qualifiers: Coronary Disease-Associated Artery/Lesion type: [place] artery (3) CVA (cerebrovascular accident) Code(s): I63.9 - CEREBRAL INFARCTION, UNSPECIFIED Qualifiers: CVA mechanism: unspecified Qualified Code(s): I63.9 - Cerebral infarction, unspecified (4) Chest pain Code(s): R07.9 - CHEST PAIN, UNSPECIFIED (5) Panic attack Code(s): F41.0 - PANIC DISORDER WITHOUT AGORAPHOBIA Assessment/Plan PLAN Admit as observation Continue with meds Spoke with Mary Jane Angelia-- unlikely to be dysphagia recent h/o CVA-- no neurological signs Noted elevated cardiac enzymes-- Cardiology evaluation pt had work up for CVA last visit On Eliquis Probably panic attack-- start Klonopin as needed and Lexapro He will also need repeat sleep studies as an outpt-- adjust settings for CPAP DVT prophylaxis-- pt on Eliquis
[2016-05-31 12:27] LABS: TROPONIN I 0.08 ng/ml (0.00-0.05)
--- NOTE | 2016-05-31 14:10 | EKG ---
Test Reason : Blood Pressure : / mmHG Vent. Rate : 086 BPM Atrial Rate : 468 BPM P-R Int : 000 ms QRS Dur : 130 ms QT Int : 402 ms P-R-T Axes : 000 050 034 degrees QTc Int : 481 ms ATRIAL FIBRILLATION RIGHT BUNDLE BRANCH BLOCK ABNORMAL ECG WHEN COMPARED WITH ECG OF 01-MAY-2016 11:00, NO SIGNIFICANT CHANGE WAS FOUND Confirmed by EDENILSON LOWE MD ([id number]) on 05/31/2016 2:10:20 PM Referred By: Confirmed By:EDENILSON LOWE MD
[2016-05-31] MEDS: ESCITALOPRAM OXALATE 10 MG TABLET (FP) PO SCH (16:05)
--- NOTE | 2016-05-31 16:56 | CON.CARD ---
Consult Consult Specialty:: Cardiology Referred by:: Abbey Kennedy MD, Karlos Rose MD Reason for Consultation:: Troponin elevation - History of Present Illness Chief Complaint: Dysphagia since resolved History of Present Illness: 66 yo man with H/O HTN, Chol, ASHD, Afib on Eliquis, OSAS on cpap, recent lacunar infarct presented with dysphagia and left arm numbness since resolved. He denies SOB, chest pain, near or true syncope, palpitations, orthopnea, PND or LE edema. He admits to not taking Pradaxa yesterday. 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 Home Medications - Allergies Allergies/Adverse Reactions: Allergies Allergy/AdvReac Type Severity Reaction Status Date / Time No Known Allergies Allergy Verified 05/30/16 20:27 - Home Medications Home Medications: Ambulatory Orders Metoprolol Tartrate [Lopressor] 50 mg PO BID 05/03/11 Amlodipine/Valsartan [Exforge 10-160 mg Tablet] 1 tab PO DAILY 05/01/16 Aspirin [ASA -] 81 mg PO DAILY 05/01/16 Apixaban [Eliquis -] 5 mg PO BID #60 tablet 05/02/16 Atorvastatin Ca [Lipitor] 10 mg PO HS #30 tablet 05/02/16 Family Disease History - Family Disease History Family Disease History: CA: Mother (pancreatic cancer), Other: Father (?) Review of Systems - Review of Systems Gastrointestinal: reports: Dysphagia Vital Signs: Vital Signs Temperature 98.5 F 05/31/16 14:44 Pulse Rate 82 05/31/16 14:44 Respiratory Rate 22 05/31/16 14:44 Blood Pressure 132/86 05/31/16 14:44 O2 Sat by Pulse Oximetry (%) 98 05/31/16 13:27 Constitutional: Yes: No Distress, Calm Neck: Yes: Supple Respiratory: Yes: Regular, Diminished Gastrointestinal: Yes: Normal Bowel Sounds, Soft, Abdomen, Obese Cardiovascular: Yes: Pulse Irregular JVD: No Carotid Bruit: No Heart Sounds: Yes: S1, S2 Edema: No - Other Data Labs, Other Data: INR, PTT INR 1.29 (0.82-1.09) H 05/30/16 21:10 Afib @ 89 RBBB Ejection Fraction %: LVEF > or = 40 % Imaging - Results Chest X-ray: Report Reviewed (NAD) Cat Scan: Report Reviewed (Old stroke) Problem List - Problems (1) Afib Code(s): I48.91 - UNSPECIFIED ATRIAL FIBRILLATION Qualifiers: Atrial fibrillation type: persistent Qualified Code(s): I48.1 - Persistent atrial fibrillation (2) CVA (cerebrovascular accident) Code(s): I63.9 - CEREBRAL INFARCTION, UNSPECIFIED Qualifiers: CVA mechanism: unspecified Qualified Code(s): I63.9 - Cerebral infarction, unspecified (3) HTN (hypertension) Code(s): I10 - ESSENTIAL (PRIMARY) HYPERTENSION Qualifiers: Hypertension type: essential hypertension Qualified Code(s): I10 - Essential (primary) hypertension (4) Hypercholesteremia Code(s): E78.0 - PURE HYPERCHOLESTEROLEMIA * DO NOT USE * Assessment/Plan 05/02/2016 Echo: Severe TERA, normal LV size and fxn without sig valve abnl 1. H/o recent lacunar infarct. 2. HTN/HCVD 3. Persistent afib on NOAC 4. Hyperlipidemia 5. OSAS 6. Possible panic d/o P: 1. Continue Metoprolol Tartrate [Lopressor] 50 mg PO BID, Eliquis 5 PO BID, Atorvastatin Ca [Lipitor] 10 mg PO HS Amlodipine/Valsartan [Exforge 10-160 mg Tablet] 1 tab PO DAILY, d/c Aspirin [ ASA -] 81 mg PO DAILY while on NOAC 2. Agree with titration sleep study as outpatient 3. Thank you for consultative opportunity
[2016-05-31] MEDS ORDERED: ATORVASTATIN CA 10 MG TABLET (FP) PO SCH (22:00)
[2016-05-31] MEDS: SODIUM CHLORIDE 0.45% 1,000 ML IV SCH (22:04)
--- NOTE | 2016-06-01 08:50 | CONSULT ---
Consult - text type - Consultation Consultation Note: NEUROLOGY CONSULTATION is greatly appreciated: This 66 yo RH man with h/o HTN, Chol, ASHD and Afib is maintained onmetoprolol, amlodipine, valsartan, eliquis and atorvastatin. Sleep apnea on CPAP but notes that his "machine is broken." Chronic depression since of his daughter in 2014. Admitted 05/01/16 with numbness and cramps in the R hand and numbness on his face. Since then he has had multiple, stereotyped episodes of lightheadedness with numbness over his mouth and cheeks, both hands and "locking" of his throat. ROS sig for poor sleep with numbness in hands and pains in his legs. CT of head (reviewed): Scattered microvascular changes. POLLY: No bruits. Cor: irreg. Obese. NEURO: MS/Speech: Normal CN II-XII: Normal including gag and swallow. Sl reduced tongue UMAIR's. Motor: No drift. Normal strength. Normal reflexes. Toes downgoing. Coord: No FTN dystaxia Sensory: Decreased pin Right hand. Gait: Normal. IMP: Essentially normal neurological exam Possible Right Carpal Tunnel syndrome. Panic attacks. Suggest: Try clonazepam .5 mg BID for short-term. Begin paroxetine 10 mg PO qd Neuro f/u as out patient for EMG/NCS and med management. Thank you very much, Naeem Juarez MD
[2016-06-01] MEDS ORDERED: PT OWN MED DRAWER 7, Y5N ONE (09:39)
[2016-06-01] MEDS: METOPROLOL TARTRATE 50 MG TABLET (FP) PO SCH (09:45)
[2016-06-01] MEDS: amLODIPine BESYLATE 10 MG TABLET (FP) PO SCH (09:45)
[2016-06-01] MEDS: VALSARTAN 160 MG TABLET (UD) PO SCH (09:45)
[2016-06-01] MEDS: APIXABAN 5 MG TABLET PO SCH (09:45)
[2016-06-01] MEDS: ESCITALOPRAM OXALATE 10 MG TABLET (FP) PO SCH (09:45)
--- NOTE | 2016-06-01 10:40 | DS ---
Physical Examination Vital Signs: Vital Signs Temperature 98.8 F 06/01/16 06:00 Pulse Rate 88 06/01/16 06:00 Respiratory Rate 18 06/01/16 06:00 Blood Pressure 136/75 06/01/16 06:00 O2 Sat by Pulse Oximetry (%) 98 06/01/16 05:00 <Fatimah Portillo - Last Filed: 06/01/16 10:39> Vital Signs: Vital Signs Temperature 98.8 F 06/01/16 06:00 Pulse Rate 88 06/01/16 06:00 Respiratory Rate 18 06/01/16 06:00 Blood Pressure 136/75 06/01/16 06:00 O2 Sat by Pulse Oximetry (%) 98 06/01/16 05:00 Findings/Remarks: Patient seen and examined. Comfortable. Sitting in the chair. No complaints. Neuro consult noted and appreciated. Eating well. Constitutional: Yes: Well Nourished, No Distress Eyes: Yes: Conjunctiva Clear Neck: Yes: Supple Cardiovascular: Yes: Pulse Irregular Respiratory: Yes: CTA Bilaterally Gastrointestinal: Yes: Normal Bowel Sounds, Soft Edema: No Neurological: Yes: WNL ...Motor Strength: WNL Psychiatric: Yes: Alert <Kirsty Patel - Last Filed: 06/01/16 10:48> Discharge Summary Reason For Visit: DYSPHAGIA Current Active Problems Chest pain (Acute) Dysphagia (Acute) Panic attack (Acute) - Home Medications Comprehensive Discharge Medication List: Ambulatory Orders Metoprolol Tartrate [Lopressor] 50 mg PO BID 05/03/11 Amlodipine/Valsartan [Exforge 10-160 mg Tablet] 1 tab PO DAILY 05/01/16 Aspirin [ASA -] 81 mg PO DAILY 05/01/16 Apixaban [Eliquis -] 5 mg PO BID #60 tablet 05/02/16 Atorvastatin Ca [Lipitor] 10 mg PO HS #30 tablet 05/02/16 Clonazepam [Klonopin -] 0.5 mg PO BID PRN #30 tablet MDD 2 06/01/16 Paroxetine HCl [Paxil -] 10 mg PO DAILY #30 tablet 06/01/16 <Fatimah Portillo - Last Filed: 06/01/16 10:39> Current Active Problems Chest pain (Acute) Dysphagia (Acute) Panic attack (Acute) Hospital Course: The patient is a 66 year old male with significant past medical history of CVA/ TIA, a-fib, hypertension, and hyperlipidemia who presented to the ED with 1 day of difficulty swallowing and intermittent left arm discomfort. Workup was negative for acute CVA. All symptoms believed to be due to anxiety. Will discharge patient home today. Meds reconciled. Discussed with patient and he agrees with the plan. Patient advised to follow up with Neurology as outpatient. Also advised to follow up with his PMD next week. Documentation prepared by Kirsty Patel, acting as a expert medical writer for Fatimah Portillo MD. - Home Medications Comprehensive Discharge Medication List: Ambulatory Orders Metoprolol Tartrate [Lopressor] 50 mg PO BID 05/03/11 Amlodipine/Valsartan [Exforge 10-160 mg Tablet] 1 tab PO DAILY 05/01/16 Aspirin [ASA -] 81 mg PO DAILY 05/01/16 Apixaban [Eliquis -] 5 mg PO BID #60 tablet 05/02/16 Atorvastatin Ca [Lipitor] 10 mg PO HS #30 tablet 05/02/16 Clonazepam [Klonopin -] 0.5 mg PO BID PRN #30 tablet MDD 2 06/01/16 Paroxetine HCl [Paxil -] 10 mg PO DAILY #30 tablet 06/01/16 <Kirsty Patel - Last Filed: 06/01/16 10:48> - Instructions Referrals: Karlos Rose MD [Primary Care Provider] -
[2016-06-01 14:51] VITALS: BP 114/85; PULSE 90; TEMP 98.7
[2016-06-02] MEDS ORDERED: PARoxetine HCL 10 MG TABLET (FP) PO SCH (10:00)
== END 2016-06-01 12:36 | disposition home or self-care (01) ==
LOC: JER 20:17 → INTOOBSV 22:28 → UNDOADMOB 22:28 → JERBED 22:28 → J5S 05-31 02:49 → JERBED 05-31 02:49 → J5S 05-31 13:27
PROVIDERS: ADMIT Internal Medicine; ATTEND Internal Medicine
DX: F41.0 Panic disorder [episodic paroxysmal anxiety] (principal); R13.10 Dysphagia, unspecified; I25.10 Atherosclerotic heart disease of native coronary artery without angina pectoris; Z95.1 Presence of aortocoronary bypass graft; E78.5 Hyperlipidemia, unspecified; I48.1 Persistent atrial fibrillation; G47.33 Obstructive sleep apnea (adult) (pediatric); Z98.84 Bariatric surgery status; Z86.73 Personal history of transient ischemic attack (TIA), and cerebral infarction without residual deficits; I11.9 Hypertensive heart disease without heart failure
CPT/HCPCS: 36415; 70450-TC; 71010-TC; 80053; 81003; 82550; 82553; 83735; 84484; 85025; 85610; 86850; 86900; 86901; 93005; 93010; 99285-25; G0378

== ENCOUNTER 2016-07-24 09:45 | Emergency (ER) | payer BC, OTHER ==
[2016-07-24 09:52] VITALS: TEMP 98; BMI 43.2
--- NOTE | 2016-07-24 10:36 | PDOC ---
History of Present Illness - General Chief Complaint: Edema Stated Complaint: SWOLLEN LEG Time Seen by Provider: 07/24/16 10:02 History Source: Patient Exam Limitations: Language Barrier - History of Present Illness Initial Comments: 07/24/16 10:38 The patient is a 66 year old male with significant past medical history of CVA/ TIA, a-fib(on pradaxa), hypertension, and hyperlipidemia presents with two day history of toe pain. He states for the past two days his right 1st toe has gotten progressively worse. Denies fever/chills, or trauma to toe. Pain is constant 6/10 non radiating throbbing pain of right 1st toe. No alleviating factors. Made worse with palpation and movement. No other associated symptoms. Denies CP, QUINN, SOB, abd. pain, N/V. Occurred: reports: yesterday Severity: Yes: moderate Lower Extremity Pain Location: right: 1st toe Method of Injury: Yes: other (tight shoes) Modifying Factors: improves with: None Lower Ext. Injury Location - Specific Injury Location Foot: right foot bone tenderness, right foot pain Extremity Pain Location - Extremity Pain Location Extremity Pain Locations: right: 1st toe Past History - Travel Traveled outside of the country in the last 30 days: No Close contact w/someone who was outside of country & ill: No - Past Medical History Allergies/Adverse Reactions: Allergies Allergy/AdvReac Type Severity Reaction Status Date / Time No Known Allergies Allergy Verified 07/24/16 09:52 Home Medications: Ambulatory Orders Metoprolol Tartrate [Lopressor] 50 mg PO BID 05/03/11 Cephalexin [Keflex] 500 mg PO TID #21 capsule 07/24/16 Dabigatran Etexilate Mesylate [Pradaxa -] 150 mg PO BID 07/24/16 Prednisone 10 mg PO BID #21 tablet 07/24/16 Anemia: No Asthma: No Cancer: No Cardiac Disorders: Yes (AFIB) CVA: No COPD: No CHF: No Dementia: No Diabetes: No GI Disorders: Yes (gastric bypass) Disorders: No HTN: Yes Hypercholesterolemia: No Liver Disease: No Suicide Attempt (Hx): No Seizures: No Thyroid Disease: No - Surgical History Abdominal Surgery: (GASTRIC BYPASS) Appendectomy: No Cardiac Surgery: No Cholecystectomy: No Lung Surgery: No Neurologic Surgery: No Orthopedic Surgery: Yes (FX (L) ANKLE) - Psycho/Social/Smoking Cessation Hx Anxiety: No Suicidal Ideation: No Smoking Status: No Smoking History: Never smoked Have you smoked in the past 12 months: No Number of Cigarettes Smoked Daily: 0 Information on smoking cessation initiated: No Hx Alcohol Use: No Drug/Substance Use Hx: No Substance Use Type: None Hx Substance Use Treatment: No Review of Systems - Review of Systems Constitutional: Yes: Diaphoresis. No: Fever Cardiac (ROS): No: Chest Pain, Lightheadedness : No: Dysuria Musculoskeletal: Yes: Joint Pain All Other Systems: Reviewed and Negative *Physical Exam - Vital Signs Last Vital Signs Temp Pulse Resp BP Pulse Ox 98 F 72 18 149/93 97 07/24/16 09:48 07/24/16 09:48 07/24/16 09:48 07/24/16 09:48 07/24/16 09:48 - Physical Exam General Appearance: Yes: Mild Distress HEENT: positive: EOMI, YEFRI Neck: positive: Supple Respiratory/Chest: positive: Lungs Clear, Normal Breath Sounds. negative: Respiratory Distress, Accessory Muscle Use Cardiovascular: positive: Irregularly Irregular. negative: Edema, JVD Gastrointestinal/Abdominal: positive: Normal Bowel Sounds Musculoskeletal: positive: Normal Inspection. negative: CVA Tenderness Extremity: positive: Erythema (right 1st toe erythema and tenderness. ) Integumentary: positive: Normal Color, Dry, Warm, Erythema (right 1st toe) Neurologic: positive: gastroenterology nurse II-XII NML intact, Alert, Normal Mood/Affect ED Treatment Course - LABORATORY CBC & Chemistry Diagram: 07/24/16 10:50 07/24/16 10:50 - RADIOLOGY Radiology Studies Ordered: Category Date Time Status FOOT-RIGHT [RAD] Stat Radiology 07/24/16 10:29 Ordered Radiograph Interpretation: 07/24/16 11:50 EXAM#: TYPE/EXAM: RESULT: [id number] RAD/FOOT-RIGHT Right foot: Pain AP, oblique and lateral views reveal degenerative changes with calcaneal spurring, partially flexed toes but no sign of an acute fracture or subluxation. Swelling , foreign body or soft tissue air is not seen. If symptoms persist, further imaging and orthopedic consultation may be of help. There are no prior studies for comparison. Impression: No acute pathology appreciated. Reported By: Rizwan Lindquist MD 07/24/16 1114 Medical Decision Making - Medical Decision Making 07/24/16 10:42 A:The patient is a 66 year old male with significant past medical history of CVA /TIA, a-fib, hypertension, and hyperlipidemia with one week history of worsening toe pain. No trauma or history of gout. Most likely acute gout but will r/o celllulitis. P: * CBC, CMP, UA ,uric acid, and ESR * Foot xray. 07/24/16 12:52 * xray was negative for acute process * ESR and Uric acid elevated * Most likely GOUT will give tappered dose steroid and one week of Keflex for possible cellulitis. * Needs to follow up with PCP in one week. *DC/Admit/Observation/Transfer Diagnosis at time of Disposition: Acute gout due to renal impairment involving foot Qualifiers: Laterality: right Qualified Code(s): M10.371 - Gout due to renal impairment, right ankle and foot - Discharge Dispostion Admit: No - Prescriptions Prescriptions: Cephalexin [Keflex] 500 mg PO TID #21 capsule Prednisone 10 mg PO BID #21 tablet - Referrals Referrals: Karlos Rose MD [Primary Care Provider] - - Patient Instructions Printed Discharge Instructions: DI for Gout Additional Instructions: Please take medications as directed. You need follow up with primary doc in 2-3 days. Avoid foods outlined in handout. Increase activity as tolerated. If pain worsens or develop fever/chills please return to ER. Print Language: POLISH
--- NOTE | 2016-07-24 10:36 | PDOC ---
Attending Attestation - Resident Resident Name: Thong Nguyen - ED Attending Attestation I have performed the following: I have examined & evaluated the patient, The case was reviewed & discussed with the resident, I agree w/resident's findings & plan - HPI HPI: 07/24/16 10:36 66-year-old male with a past medical history of hypertension, hyperlipidemia, ASHD, atrial fibrillation on Eliquis, and a recent TIA/CVA/lacunar infarct, for which he was hospitalized on 05/31/16 He is on Pradaxa at this time Patient is complaining of one-week of progressive pain and erythema at the base of his right great toe He denies any injury He states that he is wearing new shoes and they seemed a bit tight, but he denies any blister or break in the skin He denies any fevers or chills He denies any history of gout - Physicial Exam PE: 07/24/16 10:42 Physical exam Last Vital Signs Temp Pulse Resp BP Pulse Ox 98 F 72 18 149/93 97 07/24/16 09:48 07/24/16 09:48 07/24/16 09:48 07/24/16 09:48 07/24/16 09:48 Temperature 98.6 rectal Patient is alert and answering questions Right lower extremity- There is full range of motion of the ankle The dorsalis pedis pulses intact There is erythema and tenderness at the first MTP joint, consistent with podagra There is no other tenderness other than the first MTP joint There is no break in the skin Sensation is intact in all toes, and the toes are warm - Medical Decision Making 07/24/16 10:44 Most likely podagra/acute gout, will check labwork and x-rays, less likely cellulitis Laboratory Tests 07/24/16 07/24/16 07/24/16 10:50 10:50 10:50 WBC 6.2 D RBC 3.94 L Hgb 12.1 Hct 37.9 MCV 96.2 H MCHC 32.0 RDW 13.8 Plt Count 246 D MPV 8.0 Neutrophils % 65.1 Lymphocytes % 19.8 D Monocytes % 13.1 H Eosinophils % 1.4 Basophils % 0.6 ESR 58 H Sodium 140 Potassium 4.5 Chloride 106 Carbon Dioxide 25 Anion Gap 9 BUN 26 H D Creatinine 1.0 D Creat Clearance w eGFR > 60 Random Glucose 87 Uric Acid 7.5 H Calcium 8.5 Total Bilirubin 0.4 D AST 23 ALT 21 Alkaline Phosphatase 92 D Total Protein 7.7 Albumin 3.6 Urine Color Yellow Urine Appearance Clear Urine pH 5.0 Ur Specific [place] 1.024 Urine Protein 1+ H Urine Glucose (UA) Negative Urine Ketones Negative Urine Blood Negative Urine Nitrite Negative Urine Bilirubin Negative Urine Urobilinogen 2.0 e.u/dl Ur Leukocyte Esterase Negative Urine RBC <1 Urine WBC <1 Ur Epithelial Cells Rare Urine Mucus Rare ESR elevated, uric acid elevated Xray negative Most likely acute gout cannot use NSAIDs = pt on Xa inhibitor will rx with prednisone taper. will also give Keflex, although infn/cellulitis unlikely
[2016-07-24 10:55] LABS: BASOPHIL 0.6 % (0-2.0); EOSINOPHIL 1.4 % (0-4.5); MCH 30.8 pg (25.7-33.7); MEAN CELL VOLUME 96.2 fl (80-96); NEUTROPHILS 65.1 % (42.8-82.8); PLATELET COUNT 246 K/MM3 (134-434); RDW 13.8 % (11.9-15.9); WHITE BLOOD COUNT 6.2 K/mm3 (4.0-10.0)
[2016-07-24 10:56] LABS: URINE APPEARANCE CLEAR; URINE BILIRUBIN NEGATIVE (NEGATIVE); URINE BLOOD NEGATIVE (NEGATIVE); URINE COLOR YELLOW; URINE GLUCOSE (UA) NEGATIVE (NEGATIVE); URINE KETONE NEGATIVE (NEGATIVE); URINE LEUK ESTERASE NEGATIVE (NEGATIVE); URINE NITRITE NEGATIVE (NEGATIVE); URINE UROBILINOGEN 2.0 E.U/dl E.U./dl (0.2-1.0)
[2016-07-24 10:59] LABS: URINE PROTEIN 1+ (NEGATIVE)
[2016-07-24 11:23] LABS: ALBUMIN 3.6 g/dl (3.4-5.0); ANION GAP 9 (8-16); BILIRUBIN,TOTAL 0.4 mg/dL (0.2-1.0); CALCIUM 8.5 mg/dL (8.5-10.1); CO2 25 mmol/L (21-32); COCKROFT - GAULT 122.84; GLUCOSE,RANDOM 87 mg/dL (74-106); SGOT/AST 23 U/L (15-37); SGPT/ALT 21 U/L (12-78); TOT PROT 7.7 g/dl (6.4-8.2); URIC ACID 7.5 mg/dL (2.6-7.2)
[2016-07-24 11:24] LABS: ALK PHOS 92 U/L (45-117)
[2016-07-24 11:25] LABS: URINE MUCUS RARE; URINE RBC <1 /hpf (0-3); URINE WBC <1 /hpf (3-5)
[2016-07-24] MEDS ORDERED: ACETAMINOPHEN 500 MG TABLET (FP) PO ONE (11:37)
[2016-07-24] MEDS ORDERED: methylPREDNISolone NA SUCC 40 MG/1 ML VIAL IVPB ONE (11:37)
[2016-07-24] MEDS ORDERED: methylPREDNISolone NA SUCC 40 MG/1 ML VIAL ONE (11:44)
[2016-07-24] MEDS ORDERED: ACETAMINOPHEN 325 MG TABLET (FP) ONE (11:44)
[2016-07-24 12:09] VITALS: BP 150/81; PULSE 80
[2016-07-24 12:51] LABS: ERYTHROCYTE SEDIMENTATION RATE 58 mm/hr (0-20)
== END 2016-07-24 13:05 | disposition home or self-care (01) ==
LOC: JER 09:45
PROC: 3E0333Z Introduction of Anti-inflammatory into Peripheral Vein, Percutaneous Approach (ICD-10-PCS; principal; 2016-07-24)
DX: N28.9 Disorder of kidney and ureter, unspecified (principal); M10.371 Gout due to renal impairment, right ankle and foot; I48.91 Unspecified atrial fibrillation; Z79.01 Long term (current) use of anticoagulants; I10 Essential (primary) hypertension; E78.5 Hyperlipidemia, unspecified; Z86.73 Personal history of transient ischemic attack (TIA), and cerebral infarction without residual deficits
CPT/HCPCS: 36415; 73630-TC-RT; 80053; 81003; 81015; 84550; 85025; 85651; 96374; 99285-25

== ENCOUNTER 2017-01-31 21:50 | Inpatient (IN) | payer OTHER ==
--- NOTE | 2017-01-31 22:36 | PDOC ---
History of Present Illness - General Chief Complaint: Pain Stated Complaint: abdominal pain Time Seen by Provider: 01/31/17 22:36 - History of Present Illness Initial Comments: The patient is a 66 year old male with significant past medical history of CVA/ TIA, a-fib(on pradaxa), hypertension, hyperlipidemia, recent LHC (2 weeks prior by his [place] it consultant) and gastric bypass (15 years prior) presenting with abdominal pain and occasional nausea for the last three days. He describes the pain as a sharp occasionally burning epigastric pain that is worse at night and occasionally disturbs his sleep. He also has had some slight appetite loss and has been only eating soups. He passes bowel movements daily. He takes Zantac with minor to moderate relief of his symptoms but they have not been responsive to medications recently. He had one episode of diarrhea a few days ago and has had nausea without vomiting. Denies fevers, blood from any orifice, chills, vomiting, constipation, chest pain, or other symptoms. 01/31/17 22:36 02/01/17 00:32 Past History - Past Medical History Allergies/Adverse Reactions: Allergies Allergy/AdvReac Type Severity Reaction Status Date / Time No Known Allergies Allergy Verified 01/31/17 22:01 Home Medications: Ambulatory Orders Metoprolol Tartrate [Lopressor] 50 mg PO BID 05/03/11 Dabigatran Etexilate Mesylate [Pradaxa -] 150 mg PO BID 07/24/16 Aspirin [ASA -] 81 mg PO DAILY 01/31/17 Anemia: No Asthma: No Cancer: No Cardiac Disorders: Yes (AFIB) CVA: No COPD: No CHF: No Dementia: No Diabetes: No GI Disorders: Yes (gastric bypass) Disorders: No HTN: Yes Hypercholesterolemia: No Liver Disease: No Seizures: No Thyroid Disease: No - Surgical History Abdominal Surgery: Yes (GASTRIC BYPASS) Appendectomy: No Cardiac Surgery: No Cholecystectomy: No Lung Surgery: No Neurologic Surgery: No Orthopedic Surgery: Yes (FX (L) ANKLE) - Suicide/Smoking/Psychosocial Hx Smoking Status: No Smoking History: Never smoked Have you smoked in the past 12 months: No Number of Cigarettes Smoked Daily: 0 Information on smoking cessation initiated: No Hx Alcohol Use: No Drug/Substance Use Hx: No Substance Use Type: None Hx Substance Use Treatment: No Review of Systems - Review of Systems Constitutional: No: Chills, Diaphoresis, Fever HEENTM: No: Eye Pain, Blurred Vision Respiratory: No: Cough, Shortness of Breath, Wheezing Cardiac (ROS): No: Chest Pain ABD/GI: Yes: Nausea, Poor Appetite, Indigestion. No: Abdominal Distended, Vomiting *Physical Exam - Vital Signs Last Vital Signs Temp Pulse Resp BP Pulse Ox 98.0 F 59 L 18 164/86 97 01/31/17 21:58 01/31/17 21:58 01/31/17 21:58 01/31/17 21:58 01/31/17 21:58 - Physical Exam General Appearance: Yes: Appropriately Dressed. No: Apparent Distress HEENT: positive: EOMI, YEFRI, Normal Voice Neck: positive: Normal Thyroid, Supple. negative: Tender, Rigid Respiratory/Chest: positive: Lungs Clear, Normal Breath Sounds. negative: Chest Tender, Respiratory Distress Cardiovascular: positive: Regular Rhythm, Irregularly Irregular. negative: Regular Rate, Murmur Gastrointestinal/Abdominal: positive: Normal Bowel Sounds, Tender (slight epigastric tenderness but overall benign abdominal exam), Flat, Soft Musculoskeletal: positive: Normal Inspection Extremity: positive: Normal Inspection, Normal Range of Motion Integumentary: positive: Normal Color, Dry, Warm Neurologic: positive: Fully Oriented, Alert, Normal Mood/Affect, Normal Response ED Treatment Course - LABORATORY CBC & Chemistry Diagram: 01/31/17 23:15 01/31/17 23:15 Medical Decision Making - Medical Decision Making 66 year old male with PMH of gastric bypass and thromboembolic disease presenting with abdominal pain with slight epigastric tenderenss. He had a presentation in 2014 with very similar symptoms during which a CT abdomen/ pelvis was negative for any acute pathology but had findings consistent with gastritis and he was discharged with PPIs. This current picture is most likely also gastritis vs. peptic ulcer disease. However, given the location of the pain , cardiac pathology should be ruled out. Other possible abdominal etiologies include mesenteric ischemia, aortic aneurism, mesenteric adenitis, or sbo. However, patient is not very tender on abdominal exam and is afebrile without BRBPR or tarry stools. He is a little bit hypertensive which makes me consider aneurism slightly more highly but still overall low suspicion given abdominal exam. Will get a screening lactate for mesenteric ischemia in addition to basic labs plus cardiac workup. If he still has pain after GI cocktail then will consider scanning his abdomen. 01/31/17 23:10 Patient feeling much better after GI cocktail and asking to go home but Troponin returned elevated at 0.13. He later admitted to us that he had [facility] two weeks prior during which there was some coronary plaque removal. He was previously a [facility] patient but (for unknown reason) switched to a [place] it consultant whose name he does not recall. Spoke to Dr. Portillo, covering for Dr. Bateman and will admit the patient under tele obs for troponin follow up and will consutl Dr. [facility]. 02/01/17 00:35 *DC/Admit/Observation/Transfer Diagnosis at time of Disposition: Elevated troponin I level - Discharge Dispostion Condition at time of disposition: Stable Admit: Yes
[2017-01-31] MEDS ORDERED: MAG HYDROX/AL HYDROX/SIMETH 355 ML ORAL.SUSP PO ONE (22:43)
[2017-01-31] MEDS ORDERED: FAMOTIDINE 20 MG/50 ML IVPB 50 ML IVPB ONE ×2 (22:43→23:11)
[2017-01-31] MEDS ORDERED: MAG HYDROX/AL HYDROX/SIMETH 30 ML UNIT-DOSE CUP ONE (23:11)
[2017-01-31 23:27] LABS: BASOPHIL 0.8 % (0-2.0); EOSINOPHIL 2.8 % (0-4.5); MCH 25.6 pg (25.7-33.7); MCHC 32.2 g/dl (32.0-35.9); MEAN CELL VOLUME 79.4 fl (80-96); MEAN PLT VOLUME 8.1 fl (7.5-11.1); NEUTROPHILS 55.6 % (42.8-82.8); PLATELET COUNT 217 K/MM3 (134-434)
--- NOTE | 2017-01-31 23:41 | PDOC ---
Attending Attestation - Resident Resident Name: Juan Iqbal - ED Attending Attestation I have performed the following: I have examined & evaluated the patient, The case was reviewed & discussed with the resident, I agree w/resident's findings & plan, Exceptions are as noted - Physicial Exam PE: 01/31/17 23:39 physical exam*Physical Exam General Appearance: Yes: Appropriately Dressed. No: Apparent Distress, Intoxicated HEENT: positive: EOMI, YEFRI, Normal ENT Inspection, Normal Voice, TMs Normal, Pharynx Normal. negative: Pale Conjunctivae, Photophobia, Scleral Icterus (R), Scleral Icterus (L) Neck: positive: Trachea midline, Normal Thyroid, Supple. negative: Tender, Rigid, Carotid bruit, Stridor, Lymphadenopathy (R), Lymphadenopathy (L), Thyromegaly Respiratory/Chest: positive: Lungs Clear, Normal Breath Sounds. negative: Chest Tender, Respiratory Distress, Accessory Muscle Use, Labored Respiration, RES, Crackles, Rales, Rhonchi, Stridor, Wheezing, Dullness Cardiovascular: positive: Regular Rhythm, Regular Rate, S1, S2. negative: Edema , JVD, Murmur, Bradycardia, Tachycardia Vascular Pulses: Dorsalis-Pedis (R): 2+, Doralis-Pedis (L): 2+ Gastrointestinal/Abdominal: positive:morbidly obese, Normal Bowel Sounds, Flat , Soft. negative: Tender, Organomegaly, Pulsatile Mass, Increased Bowel Sounds , Decreased BS, Distended, Guarding, Rebound, Hernia, Hepatomegaly, Spleenomegaly Lymphatic: negative: Adenopathy, Tenderness Musculoskeletal: positive: Normal Inspection. negative: CVA Tenderness, Decreased Range of Motion Extremity: positive: Normal Capillary Refill, Normal Inspection, Normal Range of Motion, Pelvis Stable. negative: Tender, Pedal Edema, Swelling, Erythema Integumentary: positive: Normal Color, Dry, Warm. negative: Cyanotic, Erythema , Jaundice, Rash Neurologic: positive: cushion assembler II-XII NML intact, Fully Oriented, Alert, Normal Mood/ Affect, Motor Strength 5/5. negative: EOM Palsy, Facial Droop, Sensory Deficit <Israel Nelson - Last Filed: 01/31/17 23:35> - HPI HPI: 01/31/17 23:46 The patient is a 66 year old male, with a significant past medical history of CVA/ TIA, AFib(on Pradaxa), GERD, Gastric bypass(15 years ago), hypertension, and hyperlipidemia, who presents to the emergency department with abdominal pain and nausea for approximately 3 days. The patient reports the pain is localized epigastrically and is nonradiating in nature. He describes the pain as sharp. He reports associated nausea and one episode of diarrhea(nonbloody), but denies any vomiting, melena, hematochezia, or constipation. Patient reports his pain is exacerbated at night or when eating solid foods. As a result, patient reports he has been on a liquid diet and overall has loss of appetite. Patient reports taking Zantac with mild relief of symptoms. Patient reports he was seen in the ED in 2014 with similar symptoms, where his CT revealed gastritis and patient was discharge on Zantac. Since, then patient reports he has had his occasional flare ups, but his symptoms usually resolve within a day. He denies any chest pain, shortness of breath, diaphoresis, or palpitations. He denies any fever or chills. Patient reports he hurt his foot recently, and has been experiencing associated pain. As a result, patient has been taking Motrin, and he states this might be why he is experiencing his symptoms. - Medical Decision Making 01/31/17 23:47 Documentation prepared by Eden Doyle, acting as medical observer for Israel Nelson DO. <Eden Doyle - Last Filed: 01/31/17 23:47>
[2017-02-01 00:08] LABS: ALBUMIN 3.3 g/dl (3.4-5.0); ANION GAP 10 (8-16); BILIRUBIN,TOTAL 0.2 mg/dL (0.2-1.0); CALCIUM 8.2 mg/dL (8.5-10.1); CO2 24 mmol/L (21-32); CREATININE 0.9 mg/dL (0.7-1.3); GLUCOSE,RANDOM 100 mg/dL (74-106); SGOT/AST 12 U/L (15-37); SGPT/ALT 18 U/L (12-78); TOT PROT 6.9 g/dl (6.4-8.2)
[2017-02-01 00:10] LABS: ALK PHOS 66 U/L (45-117); CPK 193 IU/L (39-308); TROPONIN I 0.13 ng/ml (0.00-0.05)
[2017-02-01] MEDS ORDERED: ASPIRIN 81 MG CHEWABLE TABLETS PO ONE (00:50)
[2017-02-01] MEDS ORDERED: ASPIRIN 81 MG CHEWABLE TABLETS ONE (01:18)
[2017-02-01 08:39] LABS: TROPONIN I 0.11 ng/ml (0.00-0.05)
[2017-02-01] MEDS ORDERED: ACETAMINOPHEN 325 MG TABLET (FP) PO PRN (08:44)
[2017-02-01] MEDS: ASPIRIN 81 MG CHEWABLE TABLETS PO SCH (09:26)
[2017-02-01] MEDS: METOPROLOL TARTRATE 50 MG TABLET (FP) PO SCH (09:26)
--- NOTE | 2017-02-01 09:42 | EKG ---
Test Reason : Blood Pressure : / mmHG Vent. Rate : 073 BPM Atrial Rate : 060 BPM P-R Int : 000 ms QRS Dur : 132 ms QT Int : 426 ms P-R-T Axes : 000 047 025 degrees QTc Int : 469 ms ATRIAL FIBRILLATION RIGHT BUNDLE BRANCH BLOCK ABNORMAL ECG WHEN COMPARED WITH ECG OF 30-MAY-2016 23:17, NO SIGNIFICANT CHANGE WAS FOUND Confirmed by JENAE ARNOLD MD ([id number]) on 02/01/2017 9:41:46 AM Referred By: Confirmed By:JENAE ARNOLD MD
[2017-02-01] MEDS ORDERED: DABIGATRAN ETEXILATE MESYLATE 150 MG CAPSULE PO SCH (10:00)
[2017-02-01] MEDS ORDERED: PANTOPRAZOLE 40 MG TABLET (FP) PO SCH (10:00)
--- NOTE | 2017-02-01 10:11 | HP ---
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 He describes the pain as a sharp occasionally burning epigastric pain that is worse at night and occasionally disturbs his sleep. He also has had some slight appetite loss and has been only eating soups. He passes bowel movements daily. He takes Zantac with minor to moderate relief of his symptoms but they have not been responsive to medications recently. He had one episode of diarrhea a few days ago and has had nausea without vomiting. Denies fevers, blood from any orifice, chills, vomiting, constipation, chest pain, or other symptoms. pt given meds for gastritis in er - better pt admitted as troponins were elevated case was discussed with er physician last night pt seen in er. chart reviewed denies cp. c/c - pain in upper abdomen.- improved denies sob. denies blood in stools no headche / dizziness denies urinary burning. 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 Home Medications - Allergies Allergies/Adverse Reactions: Allergies Allergy/AdvReac Type Severity Reaction Status Date / Time No Known Allergies Allergy Verified 01/31/17 22:01 - Home Medications Home Medications: Ambulatory Orders Metoprolol Tartrate [Lopressor] 50 mg PO BID 05/03/11 Dabigatran Etexilate Mesylate [Pradaxa -] 150 mg PO BID 07/24/16 Aspirin [ASA -] 81 mg PO DAILY 01/31/17 Family Disease History - Family Disease History Family Disease History: CA: Mother (pancreatic cancer), Other: Father (?) Review of Systems Findings/Remarks: see ute Physical Examination Vital Signs: Vital Signs Temperature 98.0 F 01/31/17 21:58 Pulse Rate 88 02/01/17 07:40 Respiratory Rate 18 02/01/17 07:02 Blood Pressure 136/74 02/01/17 07:40 O2 Sat by Pulse Oximetry (%) 95 02/01/17 07:40 Constitutional: Yes: No Distress, Anxious Eyes: Yes: Conjunctiva Clear Neck: Yes: Supple Cardiovascular: Yes: Pulse Irregular Respiratory: Yes: CTA Bilaterally Gastrointestinal: Yes: Soft, Tenderness, Epigastrium Edema: No Neurological: Yes: Alert Psychiatric: Yes: Alert Imaging - Results Chest X-ray: Report Reviewed EKG: Report Reviewed Problem List - Problems (1) Abdominal pain Code(s): R10.9 - UNSPECIFIED ABDOMINAL PAIN Qualifiers: Abdominal location: epigastric Qualified Code(s): R10.13 - Epigastric pain; R10.13 - Epigastric pain (2) Elevated troponin I level Code(s): R74.8 - ABNORMAL LEVELS OF OTHER SERUM ENZYMES (3) Gastric bypass status for obesity Code(s): Z98.84 - BARIATRIC SURGERY STATUS (4) Afib Code(s): I48.91 - UNSPECIFIED ATRIAL FIBRILLATION Qualifiers: Atrial fibrillation type: persistent Qualified Code(s): I48.1 - Persistent atrial fibrillation; I48.1 - Persistent atrial fibrillation; I48.1 - Persistent atrial fibrillation; I48.1 - Persistent atrial fibrillation (5) CAD (coronary artery disease) Code(s): I25.10 - ATHSCL HEART DISEASE OF [place] CORONARY ARTERY W/O ANG PCTRS Qualifiers: Coronary Disease-Associated Artery/Lesion type: [place] artery (6) Gastritis Code(s): K29.70 - GASTRITIS, UNSPECIFIED, WITHOUT BLEEDING Qualifiers: Gastritis type: unspecified gastritis (7) HTN (hypertension) Code(s): I10 - ESSENTIAL (PRIMARY) HYPERTENSION Qualifiers: Hypertension type: essential hypertension Qualified Code(s): I10 - Essential (primary) hypertension; I10 - Essential (primary) hypertension; I10 - Essential (primary) hypertension Assessment/Plan I believe symptoms related to gastritis troponins- likely stress related. pt on pradexa and asa pt recently has cath - result unknown. will have to continue asa/ppradexa till cardiology eval i/v protonix . will consult endo- alie need egd. monitor closely. will follow. discussed with nursing staff also.
[2017-02-01] MEDS ORDERED: ONDANSETRON 4 MG/2 ML VIAL IVPUSH PRN (10:47)
[2017-02-01] MEDS ORDERED: ACETAMINOPHEN 325 MG TABLET (FP) ONE (10:57)
--- NOTE | 2017-02-01 15:48 | CON.GI ---
Consult Consult Specialty:: Gastroenterology Referred by:: Dr Portillo Reason for Consultation:: Abdominal pain - History of Present Illness Chief Complaint: Epigastric pain for 5 days History of Present Illness: 66M has had a pressure type epigastric pain since Saturday with a single episode of dry heaving. No hematemesis but has had dark loose stool this week. His PMD is Dr Rose. He was hospitalized at [facility] 3 weeks ago for similar complaints and underwent catheterization of the heart. He tells me that he did not require coronary stenting. He had an EGD remotely but cannot recall the results. He has never had a colonoscopy. He had a gastric bypass remotely. He lost 100 lbs but has regained most of it. Denies acid reflux, early satiety and constipation. 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 Sinus surgery. 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year[place] age 36 History of Recent Travel: No Home Medications - Allergies Allergies/Adverse Reactions: Allergies Allergy/AdvReac Type Severity Reaction Status Date / Time No Known Allergies Allergy Verified 01/31/17 22:01 - Home Medications Home Medications: Ambulatory Orders Metoprolol Tartrate [Lopressor] 50 mg PO BID 05/03/11 Dabigatran Etexilate Mesylate [Pradaxa -] 150 mg PO BID 07/24/16 Aspirin [ASA -] 81 mg PO DAILY 01/31/17 Family Disease History - Family Disease History Family Disease History: CA: Mother (pancreatic cancer), Sister (ovarian cancer) , Daughter ( ovarian cancer), Other: Father ( of traumatic cerebral hemorrhage) Review of Systems - Review of Systems Constitutional: reports: Weakness HENT: reports: No Symptoms Neck: reports: No Symptoms Cardiovascular: reports: Chest Pain Respiratory: reports: SOB on Exertion Gastrointestinal: reports: Abdominal Pain, Melena Genitourinary: reports: No Symptoms Integumentary: reports: No Symptoms Neurological: reports: No Symptoms Psychiatric: reports: Anxiety Physical Exam-GI Vital Signs: Vital Signs Temperature 98.2 F 02/01/17 11:40 Pulse Rate 92 H 02/01/17 11:40 Respiratory Rate 18 02/01/17 07:02 Blood Pressure 103/47 02/01/17 11:40 O2 Sat by Pulse Oximetry (%) 95 02/01/17 11:40 Laboratory Tests 01/31/17 01/31/17 23:15 23:15 WBC 4.0 D Hgb 9.9 L D Hct 30.9 L D MCV 79.4 L Total Bilirubin 0.2 D AST 12 L D ALT 18 Alkaline Phosphatase 66 D Albumin 3.3 L Lipase 256 Constitutional: Yes: Well Nourished Eyes: Yes: Conjunctiva Clear HENT: Yes: Atraumatic Neck: Yes: Trachea Midline Cardiovascular: Yes: Pulse Irregular, S1 (wnl), S2 (wnl) Respiratory: Yes: CTA Bilaterally Gastrointestinal Inspection: Yes: Scars (healed upper midline vertical incision) ...Auscultate: Yes: Normoactive Bowel Sounds ...Palpate: Yes: Soft, Other (nontender) ...Rectal Exam: Yes: Guaiac Positive (dark greenish brown guaiaic positive stool , 2+ prostate), Sphincter Tone Normal Psychiatric: Yes: Alert Problem List - Problems (1) Abdominal pain Assessment/Plan: Suspect erosive NSAID gastritis or GERD ( See GIB section) Code(s): R10.9 - UNSPECIFIED ABDOMINAL PAIN Qualifiers: Abdominal location: epigastric Qualified Code(s): R10.13 - Epigastric pain; R10.13 - Epigastric pain (2) GI bleeding Assessment/Plan: Suspect that Alfonso has bleeding and pain related to NSAID usage causing gastritis or an ulcer aggravated by Pradaxa. he could alternatively have pain and bleeding related to GERD. I cannot exclude a more distal source of bleeding such as vascular ectasias, small bowel NSAID ulcers and neoplasms. Should ideally have EGD and a colonoscopy but will need to defer until he is cardiologically cleared as he has elevated troponins and until his [facility] cath findings are confirmed. Will stop Pradaxa but not his aspirin and will start PPI drip empirically. Dr Gross will be covering my group this weekend. Code(s): K92.2 - GASTROINTESTINAL HEMORRHAGE, UNSPECIFIED Qualifiers: GI bleed type/associated pathology: melena Qualified Code(s): K92.1 - Melena; K92.1 - Melena (3) Gastric bypass status for obesity Code(s): Z98.84 - BARIATRIC SURGERY STATUS
[2017-02-01] MEDS: PANTOPRAZOLE SODIUM 80 MG in SODIUM CHLORIDE 100 ML IVPB SCH (17:45)
[2017-02-01 18:26] LABS: MCH 25.4 pg (25.7-33.7); MCHC 31.8 g/dl (32.0-35.9); MEAN CELL VOLUME 79.9 fl (80-96); MEAN PLT VOLUME 9.1 fl (7.5-11.1); PLATELET COUNT 231 K/MM3 (134-434); RDW 20.5 % (11.9-15.9); WHITE BLOOD COUNT 4.6 K/mm3 (4.0-10.0)
--- NOTE | 2017-02-01 18:31 | CON.CARD ---
Consult Consult Specialty:: Cardiology Referred by:: Karlos Rose MD Reason for Consultation:: Pre-procedure cardiovascular evaluation - History of Present Illness Chief Complaint: Abd pain History of Present Illness: Chief Complaint: Epigastric pain for 5 days History of Present Illness: 66 yo man with H/O HTN, Chol, ASHD, Afib on Eliquis, OSAS on cpap, lacunar infarct presents for pressure type epigastric pain since Saturday with a single episode of dry heaving. No hematemesis but has had dark loose stool this week. He denies SOB, chest pain, near or true syncope, palpitations, orthopnea, PND or LE edema. Had underwent recent cath at [facility] 12/2016. 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. Sinus surgery. 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 History of Recent Travel: No Home Medications - Allergies Allergies/Adverse Reactions: Allergies Allergy/AdvReac Type Severity Reaction Status Date / Time No Known Allergies Allergy Verified 01/31/17 22:01 - Home Medications Home Medications: Ambulatory Orders Metoprolol Tartrate [Lopressor] 50 mg PO BID 05/03/11 Dabigatran Etexilate Mesylate [Pradaxa -] 150 mg PO BID 07/24/16 Aspirin [ASA -] 81 mg PO DAILY 01/31/17 Family Disease History - Family Disease History Family Disease History: CA: Mother (pancreatic cancer), Sister (ovarian cancer) , Daughter ( ovarian cancer), Other: Father ( of traumatic cerebral hemorrhage) Review of Systems - Review of Systems Gastrointestinal: reports: Abdominal Pain Vital Signs: Vital Signs Temperature 98.2 F 02/01/17 11:40 Pulse Rate 93 H 02/01/17 15:40 Respiratory Rate 18 02/01/17 07:02 Blood Pressure 140/60 02/01/17 15:40 O2 Sat by Pulse Oximetry (%) 95 02/01/17 15:40 Constitutional: Yes: No Distress, Calm Neck: Yes: Supple Respiratory: Yes: Regular, CTA Bilaterally Gastrointestinal: Yes: Soft, Hypoactive Bowel Sounds Cardiovascular: Yes: Regular Rate and Rhythm JVD: No Carotid Bruit: No Heart Sounds: Yes: S1, S2 Edema: No - Other Data Labs, Other Data: CBC, BMP 02/01/17 18:20 Troponin, BNP 02/01/17 08:00 Troponin I 0.11 H Troponin, BNP 02/01/17 08:00 Troponin I 0.11 H Afib @ 93 RBBB similar to previous Ejection Fraction %: LVEF > or = 40 % Problem List - Problems (1) Abdominal pain Code(s): R10.9 - UNSPECIFIED ABDOMINAL PAIN Qualifiers: Abdominal location: epigastric Qualified Code(s): R10.13 - Epigastric pain; R10.13 - Epigastric pain (2) Elevated troponin I level Code(s): R74.8 - ABNORMAL LEVELS OF OTHER SERUM ENZYMES (3) GI bleeding Code(s): K92.2 - GASTROINTESTINAL HEMORRHAGE, UNSPECIFIED Qualifiers: GI bleed type/associated pathology: melena Qualified Code(s): K92.1 - Melena; K92.1 - Melena (4) Gastric bypass status for obesity Code(s): Z98.84 - BARIATRIC SURGERY STATUS (5) Afib Code(s): I48.91 - UNSPECIFIED ATRIAL FIBRILLATION Qualifiers: Atrial fibrillation type: persistent Qualified Code(s): I48.1 - Persistent atrial fibrillation; I48.1 - Persistent atrial fibrillation; I48.1 - Persistent atrial fibrillation; I48.1 - Persistent atrial fibrillation (6) CAD (coronary artery disease) Code(s): I25.10 - ATHSCL HEART DISEASE OF [place] CORONARY ARTERY W/O ANG PCTRS Qualifiers: Coronary Disease-Associated Artery/Lesion type: [place] artery (7) CVA (cerebrovascular accident) Code(s): I63.9 - CEREBRAL INFARCTION, UNSPECIFIED Qualifiers: CVA mechanism: unspecified Qualified Code(s): I63.9 - Cerebral infarction, unspecified; I63.9 - Cerebral infarction, unspecified; I63.9 - Cerebral infarction, unspecified; I63.9 - Cerebral infarction, unspecified (8) Gastritis Code(s): K29.70 - GASTRITIS, UNSPECIFIED, WITHOUT BLEEDING Qualifiers: Gastritis type: unspecified gastritis (9) HTN (hypertension) Code(s): I10 - ESSENTIAL (PRIMARY) HYPERTENSION Qualifiers: Hypertension type: essential hypertension Qualified Code(s): I10 - Essential (primary) hypertension; I10 - Essential (primary) hypertension; I10 - Essential (primary) hypertension (10) Hypercholesteremia Code(s): E78.0 - PURE HYPERCHOLESTEROLEMIA * DO NOT USE * (11) Demand ischemia Code(s): I24.8 - OTHER FORMS OF ACUTE ISCHEMIC HEART DISEASE (12) Pre-procedural cardiovascular examination Code(s): Z01.810 - ENCOUNTER FOR PREPROCEDURAL CARDIOVASCULAR EXAMINATION Assessment/Plan 05/02/2016 Echo: Severe TERA, normal LV size and fxn without sig valve abnl 01/07/2017 R&LHC: Single vessel CAD mid 50%, 70% small distal LAD, severe pulm HTN 66/16/36, PCWP 23 1. Pre-procedural cardiovascular evaluation 2. Abdominal pain and GI bleeding suspect erosive NSAID gastritis or GERD 3. H/o lacunar infarct. 4. HTN/HCVD 5. Persistent afib on NOAC 6. Hyperlipidemia 7. OSAS on cpap 8. Morbid obesity with h/o gastric bypass surgery 9. 1 vessel CAD with demand ischemia, trops peaked 10. Diastolic dysfunction with pulm HTN 11. Microcytic anemia P: 1. Given results of recent cath 01/07/2017, may proceed with endoscopy from CV standpoint without further testing 2. Pradaxa held per GI, continue Metoprolol Tartrate [Lopressor] 50 mg PO BID, Atorvastatin Ca [Lipitor] 10 mg PO HS, Aspirin [ASA -] 81 mg PO DAILY 3. Transfuse pRBC to maintain Hgb>8.0, GI protection 4. Thank you for consultative opportunity
--- NOTE | 2017-02-01 20:16 | RAPID ---
Physical Examination Vital Signs: Vital Signs Temperature 98.2 F 02/01/17 11:40 Pulse Rate 88 02/01/17 18:05 Respiratory Rate 18 02/01/17 07:02 Blood Pressure 128/71 02/01/17 18:05 O2 Sat by Pulse Oximetry (%) 100 02/01/17 18:05 Findings/Remarks: RRP announced overhead around 8pm. BP was 56/37, pulse 89. Patient reported having large amount of dark stool in toilet bowl. Pradax was held but still on asa. Call made to GI and Dr. Gross made aware. Patient started on protonix gtt, aggressive IVF, 3 units of PRBC with lasix in between, transfer to ICU and colonoscopy tomorrow. Constitutional: Yes: Moderate Distress Cardiovascular: Yes: Tachycardia, S1, S2 Respiratory: Yes: Tachypnea Labs: CBC, BMP 02/01/17 18:20 Rapid Response - Rapid Response Assessment: Hematochezia - Transfer to ICU - Aggressive IVF - Protonix gtt - Stat CBC, PT, INR, T&S - 2 IV accesses - 3 units of PRBC with lasix in betweew - Urgent colonoscopy scheduled tomorrow
--- NOTE | 2017-02-01 20:43 | PN ---
Progress Note (short form) - Note Progress Note: Covering for Dr. Washington Was informed by a resident of called for hyportension and melena. Hgb 9.9 g/ dl 1 day ago, 7.4 g/dl this pm. On ASA. Pradaxa was stopped this am. The patient is being transferred to ICU. Cardiology evaluation noted. As discussed with a resident on the case, NPO, IVF, Protonix IV bolus 80 mg, followed by IV drip 8mg/hr, transfuse 2-3 u of PRBC, PPI IV, NGT to intermittent suction, repeat Hgb after 1 unit. Target Hgb ~9 g/dl in settings of Cardiovascular history. Emergent EGD as soon as 1 unit is in and hemodynamically stable for the procedure.
[2017-02-01 20:59] LABS: BASOPHIL 0.8 % (0-2.0); EOSINOPHIL 0.3 % (0-4.5); MCH 25.4 pg (25.7-33.7); MCHC 31.6 g/dl (32.0-35.9); MEAN CELL VOLUME 80.4 fl (80-96); MEAN PLT VOLUME 8.8 fl (7.5-11.1); NEUTROPHILS 66.4 % (42.8-82.8); PLATELET COUNT 209 K/MM3 (134-434); RDW 20.5 % (11.9-15.9); WHITE BLOOD COUNT 4.8 K/mm3 (4.0-10.0)
[2017-02-01 21:12] LABS: INR 1.57 (0.82-1.09); PROTHROMBIN TIME (PATIENT) 17.7 SEC (9.98-11.88)
[2017-02-01 21:14] LABS: ACTIVATED PTT 28.8 SECONDS (26.9-34.4)
--- NOTE | 2017-02-01 21:28 | PROC ---
Procedure Note Procedure: NGT Placement Pt agreeable to NGT recommendation per Dr. Gross. 16fr NGT was lubricated and patient was instructed to swallow as it was placed in left nare. NGT was advanced until number 58 where gastric contents were advancing through tube. NGT hooked to intermittent suction. Placement verified via gastric contents clear in nature advancing through tube and by bulb suction heard while auscultating stomach. NGT secured to patient. Portable CXR to verify placement Pt stable in condition post-procedure. Pt trialed without NRB and without NC. SpO2 98% post-procedure. Will leave off oxygen for time being. Humberto Tate MD - Internal Medicine PGY-1
[2017-02-01] MEDS ORDERED: PANTOPRAZOLE SODIUM 40 MG VIAL IVPUSH SCH (22:00)
[2017-02-01] MEDS ORDERED: ATORVASTATIN CA 10 MG TABLET (FP) PO SCH (22:00)
[2017-02-02] MEDS: METOPROLOL TARTRATE 50 MG TABLET (FP) PO SCH ×3 (01:27→21:54)
[2017-02-02 02:14] VITALS: BMI 69.0
[2017-02-02] MEDS: PANTOPRAZOLE SODIUM 80 MG in SODIUM CHLORIDE 100 ML IVPB SCH ×2 (02:47→12:25)
[2017-02-02 09:27] LABS: BASOPHIL 0.6 % (0-2.0); EOSINOPHIL 0.3 % (0-4.5); MCH 27.3 pg (25.7-33.7); MEAN CELL VOLUME 82.7 fl (80-96); MEAN PLT VOLUME 8.7 fl (7.5-11.1); NEUTROPHILS 59.1 % (42.8-82.8); PLATELET COUNT 211 K/MM3 (134-434); RDW 18.2 % (11.9-15.9); WHITE BLOOD COUNT 7.5 K/mm3 (4.0-10.0)
[2017-02-02 09:38] LABS: ALBUMIN 2.9 g/dl (3.4-5.0); ALK PHOS 43 U/L (45-117); ANION GAP 6 (8-16); BILIRUBIN,TOTAL 0.7 mg/dL (0.2-1.0); CALCIUM 7.6 mg/dL (8.5-10.1); CO2 27 mmol/L (21-32); GLUCOSE,RANDOM 152 mg/dL (74-106); SGOT/AST 9 U/L (15-37); SGPT/ALT 15 U/L (12-78); TOT PROT 5.6 g/dl (6.4-8.2)
--- NOTE | 2017-02-02 11:01 | PN ---
Progress Note, Physician Chief Complaint: events noted had syncopized yesterday for drop in Hb and melanotic stools Received PRBC yesterday Had one episode of dark colored stool today - Current Medication List Current Medications: Active Medications Acetaminophen (Tylenol -) 650 mg PO Q4H PRN PRN Reason: FEVER OR PAIN Last Admin: 02/01/17 13:05 Dose: 650 mg Atorvastatin Calcium (Lipitor -) 10 mg PO HS VALERIE Last Admin: 02/02/17 01:27 Dose: 10 mg Pantoprazole Sodium 80 mg/ (Sodium Chloride) 100 mls @ 10 mls/hr IVPB Q10H VALERIE PRN Reason: 8 MG/HR Last Admin: 02/02/17 02:47 Dose: 10 mls/hr Dextrose/Sodium Chloride (D5-1/2ns -) 1,000 mls @ 75 mls/hr IV ASDIR VALERIE Metoprolol Tartrate (Lopressor -) 50 mg PO BID VALERIE Last Admin: 02/02/17 01:27 Dose: 50 mg Ondansetron HCl (Zofran Injection) 4 mg IVPUSH Q6H PRN PRN Reason: NAUSEA Last Admin: 02/01/17 11:10 Dose: 4 mg - Objective Vital Signs: Vital Signs Temperature 98.2 F 02/02/17 06:00 Pulse Rate 105 H 02/02/17 06:00 Respiratory Rate 20 02/02/17 06:00 Blood Pressure 113/80 02/02/17 06:00 O2 Sat by Pulse Oximetry (%) 100 02/02/17 00:46 Constitutional: Yes: No Distress Cardiovascular: Yes: Regular Rate and Rhythm Respiratory: Yes: CTA Bilaterally Gastrointestinal: Yes: Normal Bowel Sounds, Soft, Abdomen, Obese. No: Tenderness Edema: No Labs: CBC, BMP 02/02/17 09:00 INR, PTT INR 1.57 (0.82-1.09) H 02/01/17 20:25 Problem List - Problems (1) Acute blood loss anemia Code(s): D62 - ACUTE POSTHEMORRHAGIC ANEMIA (2) Upper GI hemorrhage Code(s): K92.2 - GASTROINTESTINAL HEMORRHAGE, UNSPECIFIED (3) Abdominal pain Code(s): R10.9 - UNSPECIFIED ABDOMINAL PAIN Qualifiers: Abdominal location: epigastric Qualified Code(s): R10.13 - Epigastric pain; R10.13 - Epigastric pain (4) Demand ischemia Code(s): I24.8 - OTHER FORMS OF ACUTE ISCHEMIC HEART DISEASE (5) Elevated troponin I level Code(s): R74.8 - ABNORMAL LEVELS OF OTHER SERUM ENZYMES (6) GI bleeding Code(s): K92.2 - GASTROINTESTINAL HEMORRHAGE, UNSPECIFIED Qualifiers: GI bleed type/associated pathology: melena Qualified Code(s): K92.1 - Melena; K92.1 - Melena Assessment/Plan PLAN keep NPO Protonix drip iv fluids dc ASA Pradaxa discontinued yesterday GI follow up noted For EGD today Monitor CBC
[2017-02-02 11:15] LABS: INR 1.34 (0.82-1.09); PROTHROMBIN TIME (PATIENT) 15.1 SEC (9.98-11.88)
[2017-02-02] MEDS ORDERED: PROPOFOL 20 ML ONE ×2 (11:15)
[2017-02-02] MEDS ORDERED: ETOMIDATE 20 MG/10 ML AMPUL IVPUSH ONE (11:15)
[2017-02-02] MEDS ORDERED: SUCCINYLCHOLINE CHLORIDE 200 MG/10 ML VIAL ONE (11:16)
[2017-02-02] MEDS ORDERED: GLYCOPYRROLATE 0.2 MG/1 ML VIAL ONE ×2 (11:16)
[2017-02-02] MEDS ORDERED: ESMOLOL HCL 10 ML ONE (11:16)
[2017-02-02] MEDS ORDERED: METOPROLOL TARTRATE 5 MG/5 ML VIAL ONE (11:16)
[2017-02-02] MEDS ORDERED: LABETALOL HCL 5 MG/1 ML (100MG/20 ML VIAL) ONE (11:16)
--- NOTE | 2017-02-02 11:17 | PN ---
Progress Note, Physician History of Present Illness: Covering for Dr. Washington Overnight hypotension, dizziness on standing up, large melanotic stool and 3 g drop in Hgb (6.4g/dl). s/p 2 u of PRBC, on IV PPI. Negative NGT findings. Not in pain, or distress. AAx3. Hgb post 2 units - 8g/dl. ASA was held this am, Pradaxa, last am. - Current Medication List Current Medications: Active Medications Acetaminophen (Tylenol -) 650 mg PO Q4H PRN PRN Reason: FEVER OR PAIN Last Admin: 02/01/17 13:05 Dose: 650 mg Atorvastatin Calcium (Lipitor -) 10 mg PO HS VALERIE Last Admin: 02/02/17 01:27 Dose: 10 mg Pantoprazole Sodium 80 mg/ (Sodium Chloride) 100 mls @ 10 mls/hr IVPB Q10H VALERIE PRN Reason: 8 MG/HR Last Admin: 02/02/17 02:47 Dose: 10 mls/hr Dextrose/Sodium Chloride (D5-1/2ns -) 1,000 mls @ 75 mls/hr IV ASDIR VALERIE Metoprolol Tartrate (Lopressor -) 50 mg PO BID VALERIE Last Admin: 02/02/17 01:27 Dose: 50 mg Ondansetron HCl (Zofran Injection) 4 mg IVPUSH Q6H PRN PRN Reason: NAUSEA Last Admin: 02/01/17 11:10 Dose: 4 mg - Objective Vital Signs: Vital Signs Temperature 98.2 F 02/02/17 06:00 Pulse Rate 105 H 02/02/17 06:00 Respiratory Rate 20 02/02/17 06:00 Blood Pressure 113/80 02/02/17 06:00 O2 Sat by Pulse Oximetry (%) 100 02/02/17 00:46 Constitutional: Yes: No Distress, Anxious Eyes: Yes: Conjunctiva Clear HENT: Yes: Atraumatic Neck: Yes: Supple Respiratory: Yes: Regular. No: Rales, Wheezes Gastrointestinal: Yes: Soft, Melena, Tenderness, Epigastrium Neurological: Yes: Alert, Oriented Labs: CBC, BMP 02/02/17 10:20 02/02/17 09:00 INR, PTT INR 1.57 (0.82-1.09) H 02/01/17 20:25 Problem List - Problems (1) Acute blood loss anemia Code(s): D62 - ACUTE POSTHEMORRHAGIC ANEMIA (2) Upper GI hemorrhage Code(s): K92.2 - GASTROINTESTINAL HEMORRHAGE, UNSPECIFIED Assessment/Plan Diagnostic/therapeutic EGD this AM. Discussed with the patient, he agrees with the plan. Contiue PPI drip NPO IVF Hgb q6 hrs x 24 and transfuse as needed to keep ~>8-9g/dl Will add carafate if needed after EGD No need for erythromycin prior to EGD, negative NGT return.
[2017-02-02] MEDS ORDERED: KETAMINE HCL 500 MG/10 ML VIAL ONE (11:20)
[2017-02-02] MEDS: ASPIRIN 81 MG CHEWABLE TABLETS PO SCH (11:44)
[2017-02-02] MEDS: DEXTROSE 5%-0.45% SALINE 1,000 ML IV SCH ×2 (11:46→13:41)
[2017-02-02 11:48] LABS: FERRITIN 8.413 ng/ml (16.4-293.9)
[2017-02-02 11:50] LABS: TROPONIN I 0.09 ng/ml (0.00-0.05)
--- NOTE | 2017-02-02 13:21 | PROC ---
Endoscopy Procedure Endoscopy procedure completed. Please see scanned procedure report. Normal Billroth II anastomosis, efferent and blind limbs. No marginal ulcers. Normal, 5 cm gastric pouch, retroflexion, GEJ and esophagus. No evidence of bleeding, or mucosal abnormalities, other than mild, focal, superficial NGT trauma to the mucosa of gastric pouch. Prep for colonoscopy Clear liquid diet today and tomorrow NPO after midnight on Saturday Monitor for signs of bleeding Hold anticoagulation
[2017-02-02] MEDS ORDERED: ONDANSETRON 4 MG/2 ML VIAL IVPUSH PRN (13:31)
--- NOTE | 2017-02-02 14:27 | PN ---
Progress Note, Physician Chief Complaint: Events noted For endoscopy as per GI History of Present Illness: Patient was seen and examined. Awake and alert. Chart was reviewed Denies chest pain, SOB or palpitations, but complains of persistent GI bleed For further GI work up - Current Medication List Current Medications: Active Medications Acetaminophen (Tylenol -) 650 mg PO Q4H PRN PRN Reason: FEVER OR PAIN Atorvastatin Calcium (Lipitor -) 10 mg PO HS [facility] Dextrose/Sodium Chloride (D5-1/2ns -) 1,000 mls @ 75 mls/hr IV ASDIR VALERIE Last Admin: 02/02/17 13:41 Dose: 0 mls Metoprolol Tartrate (Lopressor -) 50 mg PO BID VALERIE Ondansetron HCl (Zofran Injection) 4 mg IVPUSH Q6H PRN PRN Reason: NAUSEA Pantoprazole Sodium (Protonix -) 40 mg PO DAILY [facility] - Objective Vital Signs: Vital Signs Temperature 98.3 F 02/02/17 13:45 Pulse Rate 86 02/02/17 13:45 Respiratory Rate 21 02/02/17 13:45 Blood Pressure 121/59 02/02/17 13:45 O2 Sat by Pulse Oximetry (%) 100 02/02/17 13:45 Neck: Yes: Supple Cardiovascular: Yes: Pulse Irregular, Murmur (Soft SM), S1, S2 Respiratory: Yes: Diminished Gastrointestinal: Yes: Normal Bowel Sounds, Soft, Abdomen, Obese. No: Tenderness Edema: No Additional Findings/Remarks: - Review of Systems Constitutional: denies: Chills, Fever Cardiovascular: (-) Chest Pain, denies: Palpitations, (-) Shortness of Breath Respiratory: (-) Cough, denies: Hemoptysis, Orthopnea, PND,(-) SOB, SOB on Exertion Gastrointestinal: denies: Abdominal Pain, Constipation, Diarrhea, (+) Melena, Nausea, Rectal Bleeding, (-) Vomiting Genitourinary: denies: Flank Pain, Hematuria Musculoskeletal: denies: Joint Pain Neurological: denies: Dizziness, Headache, Seizure, (-) Syncope Labs: 02/02/17 09:00 INR, PTT INR 1.34 (0.82-1.09) H 02/02/17 10:20 Problem List - Problems (1) Acute blood loss anemia Code(s): D62 - ACUTE POSTHEMORRHAGIC ANEMIA (2) Abdominal pain Code(s): R10.9 - UNSPECIFIED ABDOMINAL PAIN Qualifiers: Abdominal location: epigastric Qualified Code(s): R10.13 - Epigastric pain; R10.13 - Epigastric pain (3) Demand ischemia Code(s): I24.8 - OTHER FORMS OF ACUTE ISCHEMIC HEART DISEASE (4) Gastric bypass status for obesity Code(s): Z98.84 - BARIATRIC SURGERY STATUS (5) Pre-procedural cardiovascular examination Code(s): Z01.810 - ENCOUNTER FOR PREPROCEDURAL CARDIOVASCULAR EXAMINATION (6) Afib Code(s): I48.91 - UNSPECIFIED ATRIAL FIBRILLATION Qualifiers: Atrial fibrillation type: persistent Qualified Code(s): I48.1 - Persistent atrial fibrillation; I48.1 - Persistent atrial fibrillation; I48.1 - Persistent atrial fibrillation; I48.1 - Persistent atrial fibrillation (7) CAD (coronary artery disease) Code(s): I25.10 - ATHSCL HEART DISEASE OF [place] CORONARY ARTERY W/O ANG PCTRS Qualifiers: Coronary Disease-Associated Artery/Lesion type: [place] artery (8) CVA (cerebrovascular accident) Code(s): I63.9 - CEREBRAL INFARCTION, UNSPECIFIED Qualifiers: CVA mechanism: unspecified Qualified Code(s): I63.9 - Cerebral infarction, unspecified; I63.9 - Cerebral infarction, unspecified; I63.9 - Cerebral infarction, unspecified; I63.9 - Cerebral infarction, unspecified (9) HTN (hypertension) Code(s): I10 - ESSENTIAL (PRIMARY) HYPERTENSION Qualifiers: Hypertension type: essential hypertension Qualified Code(s): I10 - Essential (primary) hypertension; I10 - Essential (primary) hypertension; I10 - Essential (primary) hypertension (10) Hypercholesteremia Code(s): E78.0 - PURE HYPERCHOLESTEROLEMIA * DO NOT USE * Assessment/Plan 1. Abdominal pain and GI bleeding suspect erosive NSAID gastritis or GERD 2. History of lacunar infarct. 3. HTN/HCVD 4. Persistent AF on NOAC 5. Hyperlipidemia 6. OSAS on CPAP 7. Morbid obesity with h/o gastric bypass surgery 8. One vessel CAD with demand ischemia 9. Diastolic dysfunction with pulmonary HTN 10. Microcytic anemia PLAN: 1. May proceed with endoscopy from cardiovascular standpoint without further testing and in view of current clinical presentation. No absolute contraindication in view of absence of ischemic symptoms, decompensated congestive heart failure or malignant arrhythmia 2. Pradaxa held per GI, continue Metoprolol Tartrate [Lopressor] 50 mg PO BID and Atorvastatin Ca [Lipitor] 10 mg PO HS. ASA also held until further instruction 3. Transfuse PRBC to maintain Hgb>8.0, GI protection Further plans are to follow Pelon Hill MD
[2017-02-02 17:14] LABS: MCH 27.1 pg (25.7-33.7); MCHC 33.1 g/dl (32.0-35.9); MEAN CELL VOLUME 81.9 fl (80-96); MEAN PLT VOLUME 8.8 fl (7.5-11.1); PLATELET COUNT 205 K/MM3 (134-434); RDW 17.7 % (11.9-15.9)
[2017-02-02 18:28] LABS: BASOPHIL 0.4 % (0-2.0); EOSINOPHIL 0.5 % (0-4.5); MCH 27.1 pg (25.7-33.7); MCHC 33.4 g/dl (32.0-35.9); MEAN CELL VOLUME 81.3 fl (80-96); NEUTROPHILS 66.7 % (42.8-82.8); PLATELET COUNT 192 K/MM3 (134-434); RDW 17.8 % (11.9-15.9); WHITE BLOOD COUNT 6.5 K/mm3 (4.0-10.0)
--- NOTE | 2017-02-02 18:58 | PN ---
Progress Note (short form) - Note Progress Note: Informed by covering nurse of melena x 3 and Hgb 6.5g/dl with repeat Hgb 6.4. A drop from 8g/dl. will transfuse 3 units and prep for colonoscopy. Hgb q 6 hrs If colonoscopy is negative and pt continues to lose blood, will get either bleeding scan, or get angiogram. Problem List - Problems (1) Acute blood loss anemia Code(s): D62 - ACUTE POSTHEMORRHAGIC ANEMIA (2) Upper GI hemorrhage Code(s): K92.2 - GASTROINTESTINAL HEMORRHAGE, UNSPECIFIED
[2017-02-02] MEDS: PEG3350/SOD SULF,BICARB,CL/KCL 4,000 ML SOLN.RECON PO ONE (21:54)
[2017-02-02] MEDS: ATORVASTATIN CA 10 MG TABLET (FP) PO SCH (21:54)
[2017-02-02] MEDS ORDERED: FUROSEMIDE 40 MG/4 ML INJECTABLE VIAL IVPUSH ONE (23:31)
[2017-02-03 06:36] LABS: SERUM IRON 331 ug/dL (38-169); TOTAL IRON BINDING CAPACITY 365 ug/dL (250-450); UIBC 34 ug/dL (111-343)
[2017-02-03 07:44] LABS: BASOPHIL 0.8 % (0-2.0); EOSINOPHIL 1.7 % (0-4.5); MCH 28.4 pg (25.7-33.7); MCHC 34.5 g/dl (32.0-35.9); MEAN CELL VOLUME 82.1 fl (80-96); MEAN PLT VOLUME 9.1 fl (7.5-11.1); NEUTROPHILS 61.4 % (42.8-82.8); PLATELET COUNT 175 K/MM3 (134-434); RDW 16.2 % (11.9-15.9); WHITE BLOOD COUNT 6.1 K/mm3 (4.0-10.0)
--- NOTE | 2017-02-03 09:02 | PN ---
Progress Note, Physician Chief Complaint: s/p PRBC -- total 5 pt awaiting colonoscopy - Current Medication List Current Medications: Active Medications Acetaminophen (Tylenol -) 650 mg PO Q4H PRN PRN Reason: FEVER OR PAIN Atorvastatin Calcium (Lipitor -) 10 mg PO HS [facility] Last Admin: 02/02/17 21:54 Dose: 10 mg Dextrose/Sodium Chloride (D5-1/2ns -) 1,000 mls @ 75 mls/hr IV ASDIR [facility] Last Admin: 02/02/17 13:41 Dose: 0 mls Metoprolol Tartrate (Lopressor -) 50 mg PO BID [facility] Last Admin: 02/02/17 21:54 Dose: 50 mg Ondansetron HCl (Zofran Injection) 4 mg IVPUSH Q6H PRN PRN Reason: NAUSEA Pantoprazole Sodium (Protonix -) 40 mg PO DAILY [facility] - Objective Vital Signs: Vital Signs Temperature 98.4 F 02/03/17 05:00 Pulse Rate 108 H 02/03/17 05:00 Respiratory Rate 20 02/03/17 05:00 Blood Pressure 117/70 02/03/17 05:00 O2 Sat by Pulse Oximetry (%) 98 02/02/17 21:00 Constitutional: Yes: No Distress, Calm Cardiovascular: Yes: Regular Rate and Rhythm Respiratory: Yes: CTA Bilaterally Gastrointestinal: Yes: Normal Bowel Sounds, Soft, Abdomen, Obese. No: Distention, Tenderness Edema: No Labs: CBC, BMP 02/03/17 05:10 02/02/17 09:00 INR, PTT INR 1.34 (0.82-1.09) H 02/02/17 10:20 Problem List - Problems (1) Acute blood loss anemia Code(s): D62 - ACUTE POSTHEMORRHAGIC ANEMIA (2) Upper GI hemorrhage Code(s): K92.2 - GASTROINTESTINAL HEMORRHAGE, UNSPECIFIED (3) Abdominal pain Code(s): R10.9 - UNSPECIFIED ABDOMINAL PAIN Qualifiers: Abdominal location: epigastric Qualified Code(s): R10.13 - Epigastric pain; R10.13 - Epigastric pain (4) Demand ischemia Code(s): I24.8 - OTHER FORMS OF ACUTE ISCHEMIC HEART DISEASE (5) Elevated troponin I level Code(s): R74.8 - ABNORMAL LEVELS OF OTHER SERUM ENZYMES (6) GI bleeding Code(s): K92.2 - GASTROINTESTINAL HEMORRHAGE, UNSPECIFIED Qualifiers: GI bleed type/associated pathology: melena Qualified Code(s): K92.1 - Melena; K92.1 - Melena Assessment/Plan PLAN keep NPO Protonix drip iv fluids ASA and Pradaxa discontinued for colonoscopy today Monitor CBC
--- NOTE | 2017-02-03 09:27 | PN ---
Progress Note, Physician Chief Complaint: Events noted Endoscopy result noted For colonoscopy History of Present Illness: Patient was seen and examined. Awake and alert. Chart was reviewed Denies chest pain, SOB or palpitations, but complains of persistent GI bleed For further GI work up - Current Medication List Current Medications: Active Medications Acetaminophen (Tylenol -) 650 mg PO Q4H PRN PRN Reason: FEVER OR PAIN Atorvastatin Calcium (Lipitor -) 10 mg PO HS [facility] [place] Last Admin: 02/02/17 21:54 Dose: 10 mg Dextrose/Sodium Chloride (D5-1/2ns -) 1,000 mls @ 75 mls/hr IV ASDIR [facility] [place] Last Admin: 02/02/17 13:41 Dose: 0 mls Metoprolol Tartrate (Lopressor -) 50 mg PO BID [facility] Last Admin: 02/02/17 21:54 Dose: 50 mg Ondansetron HCl (Zofran Injection) 4 mg IVPUSH Q6H PRN PRN Reason: NAUSEA Pantoprazole Sodium (Protonix -) 40 mg PO DAILY [facility] - Objective Vital Signs: Vital Signs Temperature 98.4 F 02/03/17 05:00 Pulse Rate 108 H 02/03/17 05:00 Respiratory Rate 20 02/03/17 05:00 Blood Pressure 117/70 02/03/17 05:00 O2 Sat by Pulse Oximetry (%) 98 02/02/17 21:00 Neck: Yes: Supple Cardiovascular: Yes: Pulse Irregular, Murmur (Soft SM), S1, S2 Respiratory: Yes: Diminished Gastrointestinal: Yes: Normal Bowel Sounds, Soft, Abdomen, Obese. No: Tenderness Edema: No Additional Findings/Remarks: - Review of Systems Constitutional: denies: Chills, Fever Cardiovascular: (-) Chest Pain, denies: Palpitations, (-) Shortness of Breath Respiratory: (-) Cough, denies: Hemoptysis, Orthopnea, PND,(-) SOB, SOB on Exertion Gastrointestinal: denies: Abdominal Pain, Constipation, Diarrhea, (+) Melena, Nausea, Rectal Bleeding, (-) Vomiting Genitourinary: denies: Flank Pain, Hematuria Musculoskeletal: denies: Joint Pain Neurological: denies: Dizziness, Headache, Seizure, (-) Syncope Labs: CBC, BMP 02/03/17 05:10 02/02/17 09:00 INR, PTT INR 1.34 (0.82-1.09) H 02/02/17 10:20 Problem List - Problems (1) Acute blood loss anemia Code(s): D62 - ACUTE POSTHEMORRHAGIC ANEMIA (2) Abdominal pain Code(s): R10.9 - UNSPECIFIED ABDOMINAL PAIN Qualifiers: Abdominal location: epigastric Qualified Code(s): R10.13 - Epigastric pain; R10.13 - Epigastric pain (3) Demand ischemia Code(s): I24.8 - OTHER FORMS OF ACUTE ISCHEMIC HEART DISEASE (4) Gastric bypass status for obesity Code(s): Z98.84 - BARIATRIC SURGERY STATUS (5) Pre-procedural cardiovascular examination Code(s): Z01.810 - ENCOUNTER FOR PREPROCEDURAL CARDIOVASCULAR EXAMINATION (6) Afib Code(s): I48.91 - UNSPECIFIED ATRIAL FIBRILLATION Qualifiers: Atrial fibrillation type: persistent Qualified Code(s): I48.1 - Persistent atrial fibrillation; I48.1 - Persistent atrial fibrillation; I48.1 - Persistent atrial fibrillation; I48.1 - Persistent atrial fibrillation (7) CAD (coronary artery disease) Code(s): I25.10 - ATHSCL HEART DISEASE OF [place] CORONARY ARTERY W/O ANG PCTRS Qualifiers: Coronary Disease-Associated Artery/Lesion type: [place] artery (8) CVA (cerebrovascular accident) Code(s): I63.9 - CEREBRAL INFARCTION, UNSPECIFIED Qualifiers: CVA mechanism: unspecified Qualified Code(s): I63.9 - Cerebral infarction, unspecified; I63.9 - Cerebral infarction, unspecified; I63.9 - Cerebral infarction, unspecified; I63.9 - Cerebral infarction, unspecified (9) HTN (hypertension) Code(s): I10 - ESSENTIAL (PRIMARY) HYPERTENSION Qualifiers: Hypertension type: essential hypertension Qualified Code(s): I10 - Essential (primary) hypertension; I10 - Essential (primary) hypertension; I10 - Essential (primary) hypertension (10) Hypercholesteremia Code(s): E78.0 - PURE HYPERCHOLESTEROLEMIA * DO NOT USE * Assessment/Plan 1. Abdominal pain and GI bleeding suspect erosive NSAID gastritis or GERD 2. History of lacunar infarct. 3. HTN/HCVD 4. Persistent AF on NOAC 5. Hyperlipidemia 6. OSAS on CPAP 7. Morbid obesity with h/o gastric bypass surgery 8. One vessel CAD with demand ischemia 9. Diastolic dysfunction with pulmonary HTN 10. Microcytic anemia PLAN: 1. May proceed with colonoscopy from cardiovascular standpoint without further testing and in view of current clinical presentation. No absolute contraindication in view of absence of ischemic symptoms, decompensated congestive heart failure or malignant arrhythmia 2. Pradaxa held per GI, continue Metoprolol Tartrate [Lopressor] 50 mg PO BID and Atorvastatin Ca [Lipitor] 10 mg PO HS. ASA also held until further instruction 3. Transfuse PRBC to maintain Hgb>8.0, GI prophylaxis 4. To restart NOAC after procedure when cleared by GI Further plans are to follow Pelon Hill MD
[2017-02-03] MEDS: METOPROLOL TARTRATE 50 MG TABLET (FP) PO SCH ×2 (09:31→22:24)
[2017-02-03] MEDS: PANTOPRAZOLE 40 MG TABLET (FP) PO SCH (09:31)
--- NOTE | 2017-02-03 10:13 | PN ---
Progress Note (short form) - Note Progress Note: Hematochezia while taking rep. Receiving blood. Asymptomatic, not in distress. Colonoscopy this am Problem List - Problems (1) Acute blood loss anemia Code(s): D62 - ACUTE POSTHEMORRHAGIC ANEMIA (2) Upper GI hemorrhage Code(s): K92.2 - GASTROINTESTINAL HEMORRHAGE, UNSPECIFIED
[2017-02-03] MEDS ORDERED: LIDOCAINE HCL/PF 2% SDV 5ML VIAL ONE (12:23)
[2017-02-03] MEDS ORDERED: PROPOFOL 20 ML ONE ×3 (12:23)
--- NOTE | 2017-02-03 13:37 | PROC ---
Endoscopy Procedure Endoscopy procedure completed. Please see scanned procedure report. Normal colonoscopy to TI. No evidence of recent, or ongoing bleeding. Normal colonic and TI mucosa without evidence of colitis, divertiulosis. an EGD was repeated to reevaluate continuing blood loss in settings of normal colonoscopy. Improved appearance in NGT trauma was noted. A small mucosal defect with small, fresh blood clot was noted. It was not present yesterday. Possible dieulafoy lesion? 2 resolution clips were successfully deployed and the location was tattooed. No immediate complications. Clear liquid diet Hgb q8hrs Bleeding scan stat if continues to bleed Dr. Washington will assume care on Saturday morning
[2017-02-03 17:34] LABS: MCH 28.2 pg (25.7-33.7); MCHC 33.6 g/dl (32.0-35.9); MEAN PLT VOLUME 8.8 fl (7.5-11.1); PLATELET COUNT 154 K/MM3 (134-434); RDW 16.1 % (11.9-15.9); WHITE BLOOD COUNT 5.9 K/mm3 (4.0-10.0)
[2017-02-03] MEDS ORDERED: PEG3350/SOD SULF,BICARB,CL/KCL 4,000 ML SOLN.RECON PO ONE (18:00)
[2017-02-03] MEDS: PEG3350/SOD SULF,BICARB,CL/KCL 4,000 ML SOLN.RECON PO ONE (18:29)
[2017-02-03 21:53] LABS: BASOPHIL 0.4 % (0-2.0); EOSINOPHIL 1.7 % (0-4.5); MCH 27.9 pg (25.7-33.7); MCHC 33.1 g/dl (32.0-35.9); MEAN CELL VOLUME 84.1 fl (80-96); MEAN PLT VOLUME 8.3 fl (7.5-11.1); NEUTROPHILS 69.8 % (42.8-82.8); PLATELET COUNT 149 K/MM3 (134-434); RDW 16.1 % (11.9-15.9); WHITE BLOOD COUNT 6.7 K/mm3 (4.0-10.0)
[2017-02-03] MEDS: ATORVASTATIN CA 10 MG TABLET (FP) PO SCH (22:24)
[2017-02-04] MEDS: ACETAMINOPHEN 325 MG TABLET (FP) PO PRN ×2 (06:39→21:47)
[2017-02-04 08:06] LABS: ALBUMIN 2.8 g/dl (3.4-5.0); ANION GAP 8 (8-16); BILIRUBIN,TOTAL 0.5 mg/dL (0.2-1.0); CALCIUM 7.3 mg/dL (8.5-10.1); CO2 27 mmol/L (21-32); CREATININE 0.8 mg/dL (0.7-1.3); GLUCOSE,RANDOM 113 mg/dL (74-106); SGOT/AST 9 U/L (15-37); SGPT/ALT 12 U/L (12-78); TOT PROT 5.4 g/dl (6.4-8.2)
[2017-02-04 08:07] LABS: ALK PHOS 47 U/L (45-117)
[2017-02-04] MEDS: PANTOPRAZOLE 40 MG TABLET (FP) PO SCH ×2 (09:21→21:47)
[2017-02-04] MEDS: METOPROLOL TARTRATE 50 MG TABLET (FP) PO SCH ×2 (09:21→21:47)
[2017-02-04 09:29] LABS: MCH 28.2 pg (25.7-33.7); MCHC 33.2 g/dl (32.0-35.9); MEAN CELL VOLUME 84.8 fl (80-96); MEAN PLT VOLUME 9.1 fl (7.5-11.1); PLATELET COUNT 154 K/MM3 (134-434); RDW 16.2 % (11.9-15.9); WHITE BLOOD COUNT 7.5 K/mm3 (4.0-10.0)
--- NOTE | 2017-02-04 10:32 | PN ---
Progress Note (short form) - Note Progress Note: patient seen and examined today. Events noted Discussed with Dr. Moss Status post EGD and colonoscopy--- findings noted and reviewed Low-grade temp Denies pain Patient feels better Denies chest pain or shortness of breath or abdominal pain Denies any further bleeding Vital Signs Temp 99.2 F 02/04/17 02:41 Pulse 77 02/04/17 06:00 Resp 20 02/04/17 06:00 BP 133/79 02/04/17 06:00 Pulse Ox 99 02/04/17 02:47 Intake & Output 02/03/17 02/03/17 02/04/17 11:59 23:59 11:59 Intake Total 1275 825 Balance 1275 825 Intake: IV 1075 825 D5-1/2Ns - 1,000 ml @ 75 75 825 mls/hr IV ASDIR COUNTS INCLUDE 234 BEDS AT THE [facility] Rx#: [id number] IVPB Oral 200 Packed Cells Other: Voiding Method Bedside Commode # Unmeasured Voids Void 2 Active Medications Acetaminophen (Tylenol -) 650 mg PO Q4H PRN PRN Reason: FEVER OR PAIN Last Admin: 02/04/17 06:39 Dose: 650 mg Atorvastatin Calcium (Lipitor -) 10 mg PO HS [facility]CLUDE 234 BEDS AT [facility] Last Admin: 02/03/17 22:24 Dose: 10 mg Dextrose/Sodium Chloride (D5-1/2ns -) 1,000 mls @ 75 mls/hr IV ASDIR VALERIE Last Admin: 02/02/17 13:41 Dose: 0 mls Metoprolol Tartrate (Lopressor -) 50 mg PO BID [facility]CLUDE 234 BEDS AT [facility] Last Admin: 02/04/17 09:21 Dose: 50 mg Ondansetron HCl (Zofran Injection) 4 mg IVPUSH Q6H PRN PRN Reason: NAUSEA Pantoprazole Sodium (Protonix -) 40 mg PO BID COUNTS INCLUDE 234 BEDS AT THE [facility] CBC, BMP 02/04/17 09:15 02/04/17 05:18 - Objective Constitutional: Yes: No Distress, Calm/ comfortable Cardiovascular: Yes: Regular Rate and Rhythm Respiratory: Yes: CTA Bilaterally Gastrointestinal: Yes: soft/nontender Edema: No neuro--alert and awake Problem List - Problems (1) Acute blood loss anemia Code(s): D62 - ACUTE POSTHEMORRHAGIC ANEMIA (2) Upper GI hemorrhage Code(s): K92.2 - GASTROINTESTINAL HEMORRHAGE, UNSPECIFIED (3) Abdominal pain Code(s): R10.9 - UNSPECIFIED ABDOMINAL PAIN Qualifiers: Abdominal location: epigastric Qualified Code(s): R10.13 - Epigastric pain; R10.13 - Epigastric pain (4) Demand ischemia Code(s): I24.8 - OTHER FORMS OF ACUTE ISCHEMIC HEART DISEASE (5) Elevated troponin I level Code(s): R74.8 - ABNORMAL LEVELS OF OTHER SERUM ENZYMES (6) GI bleeding Code(s): K92.2 - GASTROINTESTINAL HEMORRHAGE, UNSPECIFIED Qualifiers: GI bleed type/associated pathology: melena Qualified Code(s): K92.1 - Melena; K92.1 - Melena Assessment/Plan status post endoscopic--EGD and colonoscopy Currently not bleeding findings noted Continue present care Off aspirin and perdexa Cardiology and GI to follow monitor CBc closely Discussed with nursing staff also Will follow Problem List - Problems (1) Abdominal pain Code(s): R10.9 - UNSPECIFIED ABDOMINAL PAIN Qualifiers: Abdominal location: epigastric Qualified Code(s): R10.13 - Epigastric pain; R10.13 - Epigastric pain (2) Elevated troponin I level Code(s): R74.8 - ABNORMAL LEVELS OF OTHER SERUM ENZYMES (3) Gastric bypass status for obesity Code(s): Z98.84 - BARIATRIC SURGERY STATUS (4) Afib Code(s): I48.91 - UNSPECIFIED ATRIAL FIBRILLATION Qualifiers: Atrial fibrillation type: persistent Qualified Code(s): I48.1 - Persistent atrial fibrillation; I48.1 - Persistent atrial fibrillation; I48.1 - Persistent atrial fibrillation; I48.1 - Persistent atrial fibrillation (5) CAD (coronary artery disease) Code(s): I25.10 - ATHSCL HEART DISEASE OF [place] CORONARY ARTERY W/O ANG PCTRS Qualifiers: Coronary Disease-Associated Artery/Lesion type: [place] artery (6) Gastritis Code(s): K29.70 - GASTRITIS, UNSPECIFIED, WITHOUT BLEEDING Qualifiers: Gastritis type: unspecified gastritis (7) HTN (hypertension) Code(s): I10 - ESSENTIAL (PRIMARY) HYPERTENSION Qualifiers: Hypertension type: essential hypertension Qualified Code(s): I10 - Essential (primary) hypertension; I10 - Essential (primary) hypertension; I10 - Essential (primary) hypertension
--- NOTE | 2017-02-04 10:49 | PN ---
Progress Note, Physician Chief Complaint: Events noted EGD and colonoscopy report noted History of Present Illness: Patient was seen and examined. Awake and alert. Chart was reviewed Denies chest pain, SOB or palpitations. No further GI bleed GI input to follow - Current Medication List Current Medications: Active Medications Acetaminophen (Tylenol -) 650 mg PO Q4H PRN PRN Reason: FEVER OR PAIN Last Admin: 02/04/17 06:39 Dose: 650 mg Atorvastatin Calcium (Lipitor -) 10 mg PO HS [facility] Last Admin: 02/03/17 22:24 Dose: 10 mg Dextrose/Sodium Chloride (D5-1/2ns -) 1,000 mls @ 75 mls/hr IV ASDIR [facility] Last Admin: 02/02/17 13:41 Dose: 0 mls Metoprolol Tartrate (Lopressor -) 50 mg PO BID [facility] Last Admin: 02/04/17 09:21 Dose: 50 mg Ondansetron HCl (Zofran Injection) 4 mg IVPUSH Q6H PRN PRN Reason: NAUSEA Pantoprazole Sodium (Protonix -) 40 mg PO BID [facility] - Objective Vital Signs: Vital Signs Temperature 98.4 F 02/04/17 10:00 Pulse Rate 71 02/04/17 10:00 Respiratory Rate 20 02/04/17 10:00 Blood Pressure 125/54 02/04/17 10:00 O2 Sat by Pulse Oximetry (%) 96 02/04/17 09:00 Neck: Yes: Supple Cardiovascular: Yes: Pulse Irregular, Murmur (Soft SM), S1, S2 Respiratory: Yes: Diminished Gastrointestinal: Yes: Normal Bowel Sounds, Soft, Abdomen, Obese. No: Tenderness Edema: No Additional Findings/Remarks: - Review of Systems Constitutional: denies: Chills, Fever Cardiovascular: (-) Chest Pain, denies: Palpitations, (-) Shortness of Breath Respiratory: (-) Cough, denies: Hemoptysis, Orthopnea, PND,(-) SOB, SOB on Exertion Gastrointestinal: denies: Abdominal Pain, Constipation, Diarrhea, (+) Melena, Nausea, Rectal Bleeding, (-) Vomiting Genitourinary: denies: Flank Pain, Hematuria Musculoskeletal: denies: Joint Pain Neurological: denies: Dizziness, Headache, Seizure, (-) Syncope Labs: CBC, BMP 02/04/17 09:15 02/04/17 05:18 INR, PTT INR 1.34 (0.82-1.09) H 02/02/17 10:20 Problem List - Problems (1) Acute blood loss anemia Code(s): D62 - ACUTE POSTHEMORRHAGIC ANEMIA (2) Abdominal pain Code(s): R10.9 - UNSPECIFIED ABDOMINAL PAIN Qualifiers: Abdominal location: epigastric Qualified Code(s): R10.13 - Epigastric pain; R10.13 - Epigastric pain (3) Demand ischemia Code(s): I24.8 - OTHER FORMS OF ACUTE ISCHEMIC HEART DISEASE (4) Gastric bypass status for obesity Code(s): Z98.84 - BARIATRIC SURGERY STATUS (5) Pre-procedural cardiovascular examination Code(s): Z01.810 - ENCOUNTER FOR PREPROCEDURAL CARDIOVASCULAR EXAMINATION (6) Afib Code(s): I48.91 - UNSPECIFIED ATRIAL FIBRILLATION Qualifiers: Atrial fibrillation type: persistent Qualified Code(s): I48.1 - Persistent atrial fibrillation; I48.1 - Persistent atrial fibrillation; I48.1 - Persistent atrial fibrillation; I48.1 - Persistent atrial fibrillation (7) CAD (coronary artery disease) Code(s): I25.10 - ATHSCL HEART DISEASE OF [place] CORONARY ARTERY W/O ANG PCTRS Qualifiers: Coronary Disease-Associated Artery/Lesion type: [place] artery (8) CVA (cerebrovascular accident) Code(s): I63.9 - CEREBRAL INFARCTION, UNSPECIFIED Qualifiers: CVA mechanism: unspecified Qualified Code(s): I63.9 - Cerebral infarction, unspecified; I63.9 - Cerebral infarction, unspecified; I63.9 - Cerebral infarction, unspecified; I63.9 - Cerebral infarction, unspecified (9) HTN (hypertension) Code(s): I10 - ESSENTIAL (PRIMARY) HYPERTENSION Qualifiers: Hypertension type: essential hypertension Qualified Code(s): I10 - Essential (primary) hypertension; I10 - Essential (primary) hypertension; I10 - Essential (primary) hypertension (10) Hypercholesteremia Code(s): E78.0 - PURE HYPERCHOLESTEROLEMIA * DO NOT USE * Assessment/Plan 1. Abdominal pain and GI bleeding suspect erosive NSAID gastritis and dielafoy lesion 2. History of lacunar infarct. 3. HTN/HCVD 4. Persistent AF on NOAC 5. Hyperlipidemia 6. OSAS on CPAP 7. Morbid obesity with h/o gastric bypass surgery 8. One vessel CAD with demand ischemia 9. Diastolic dysfunction with pulmonary HTN 10. Microcytic anemia PLAN: 1. Further GI input to follow. Recommend to restart NOAC when cleared by GI 2. Continue Metoprolol Tartrate [Lopressor] 50 mg PO BID, Diovan 80 mg once a day and Atorvastatin Ca [Lipitor] 10 mg PO HS. 3. Transfuse PRBC to maintain Hgb>8.0, GI protection Further plans are to follow Pelon Hill MD
[2017-02-04] MEDS: DEXTROSE 5%-0.45% SALINE 1,000 ML IV SCH (12:05)
[2017-02-04] MEDS ORDERED: PT OWN MED DRAWER 7, Y5N ONE (17:41)
[2017-02-04 17:50] LABS: TROPONIN I 0.08 ng/ml (0.00-0.05)
[2017-02-04 18:33] LABS: MCH 28.8 pg (25.7-33.7); MCHC 33.7 g/dl (32.0-35.9); MEAN CELL VOLUME 85.5 fl (80-96); MEAN PLT VOLUME 9.3 fl (7.5-11.1); PLATELET COUNT 165 K/MM3 (134-434); RDW 16.2 % (11.9-15.9); WHITE BLOOD COUNT 5.8 K/mm3 (4.0-10.0)
[2017-02-04] MEDS: ATORVASTATIN CA 10 MG TABLET (FP) PO SCH (21:46)
[2017-02-05] MEDS: DEXTROSE 5%-0.45% SALINE 1,000 ML IV SCH ×2 (02:16→14:25)
[2017-02-05] MEDS: PANTOPRAZOLE 40 MG TABLET (FP) PO SCH ×2 (09:12→22:16)
[2017-02-05] MEDS: METOPROLOL TARTRATE 50 MG TABLET (FP) PO SCH ×2 (09:12→22:16)
[2017-02-05 10:46] LABS: MCH 28.5 pg (25.7-33.7); MEAN CELL VOLUME 86.2 fl (80-96); MEAN PLT VOLUME 9.1 fl (7.5-11.1); PLATELET COUNT 168 K/MM3 (134-434); RDW 15.9 % (11.9-15.9); WHITE BLOOD COUNT 5.1 K/mm3 (4.0-10.0)
--- NOTE | 2017-02-05 11:30 | PN ---
Progress Note (short form) - Note Progress Note: Chief Complaint: Events noted, notes reviewed, patient denies any chest discomfort or dyspnea patient denies any further gastrointestinal bleed History of Present Illness: Seen and examined on telemetry. Events noted, notes reviewed, patient denies any chest discomfort or dyspnea patient denies any further gastrointestinal bleed Results of EGD and colonoscopy were noted - Current Medication List Current Medications Acetaminophen (Tylenol -) 650 mg PO Q4H PRN PRN Reason: FEVER OR PAIN Last Admin: 02/04/17 21:47 Dose: 650 mg Atorvastatin Calcium (Lipitor -) 10 mg PO HS [facility] Last Admin: 02/04/17 21:46 Dose: 10 mg Dextrose/Sodium Chloride (D5-1/2ns -) 1,000 mls @ 75 mls/hr IV ASDIR [facility] Last Admin: 02/05/17 02:16 Dose: 75 mls/hr Metoprolol Tartrate (Lopressor -) 50 mg PO BID [facility] Last Admin: 02/05/17 09:12 Dose: 50 mg Ondansetron HCl (Zofran Injection) 4 mg IVPUSH Q6H PRN PRN Reason: NAUSEA Pantoprazole Sodium (Protonix -) 40 mg PO BID [facility] Last Admin: 02/05/17 09:12 Dose: 40 mg Review of Systems Constitutional: denies: Chills, Fever Cardiovascular: As Noted Above Respiratory: denies: Cough or Sputum Production Gastrointestinal: denies: Nausea, Vomiting, Constipation or Abdominal Pain Genitourinary: denies: Dysuria Musculoskeletal: No Symptoms Reported Neurological: denies: Dizziness, Headache - Objective Vital Signs: Last Vital Signs Temp Pulse Resp BP Pulse Ox 98.0 F 73 18 150/74 100 02/05/17 09:01 02/05/17 09:01 02/05/17 09:01 02/05/17 09:01 02/05/17 10:36 Intake & Output 02/03/17 02/03/17 02/04/17 02/05/17 00:59 23:59 23:59 23:59 Intake Total 2140 800 Output Total 625 Balance 1515 800 Neck: Supple negative JVD no bruit appreciated Cardiovascular: S1-S2 irregularly irregular grade 2/6 systolic apical murmur Respiratory: Diminished breath sounds at the bases Gastrointestinal: soft benign Normal Bowel Sounds Ext: No edema Labs: CBC, BMP 02/05/17 10:15 02/04/17 05:18 Hepatic Panel Total Bilirubin 0.5 mg/dL (0.2-1.0) D 02/04/17 05:18 AST 9 U/L (15-37) L 02/04/17 05:18 ALT 12 U/L (12-78) 02/04/17 05:18 Alkaline Phosphatase 47 U/L (45-117) 02/04/17 05:18 Albumin 2.8 g/dl (3.4-5.0) L 02/04/17 05:18 Assessment/Plan ASSESSMENT: 1. Gastrointestinal bleed, Dieulafoy lesion post intervention 2. CAD angina pectoris with evidence of demand ischemic injury 3. Diastolic left ventricular dysfunction with class 0 [place] [employer] classification left ventricular failure 4. Persistent atrial fibrillation, currently off of anticoagulation therapy 5. History of lacunar infarct 6. Hypertensive cardiovascular disease 7. Hyperlipidemia 8. OSAS on CPAP 9. Morbid obesity post gastric bypass surgery PLAN: 1. Recommend resumption of anticoagulation therapy once cleared by gastro- enterology service 2. Continue Lopressor 3. Recommend the addition of angiotensin receptor kellen therapy, Diovan 4. Continue Atorvastatin 5. Transfuse to maintain Hgb equal or > 8.0 Katharine Jane M.D.
--- NOTE | 2017-02-05 11:32 | PN ---
Progress Note, Physician - Current Medication List Current Medications: Active Medications Acetaminophen (Tylenol -) 650 mg PO Q4H PRN PRN Reason: FEVER OR PAIN Last Admin: 02/04/17 21:47 Dose: 650 mg Atorvastatin Calcium (Lipitor -) 10 mg PO HS [facility] Last Admin: 02/04/17 21:46 Dose: 10 mg Dextrose/Sodium Chloride (D5-1/2ns -) 1,000 mls @ 75 mls/hr IV [facility] Last Admin: 02/05/17 02:16 Dose: 75 mls/hr Metoprolol Tartrate (Lopressor -) 50 mg PO BID [facility] Last Admin: 02/05/17 09:12 Dose: 50 mg Ondansetron HCl (Zofran Injection) 4 mg IVPUSH Q6H PRN PRN Reason: NAUSEA Pantoprazole Sodium (Protonix -) 40 mg PO BID [facility] Last Admin: 02/05/17 09:12 Dose: 40 mg - Objective Vital Signs: Vital Signs Temperature 98.0 F 02/05/17 09:01 Pulse Rate 73 02/05/17 09:01 Respiratory Rate 18 02/05/17 09:01 Blood Pressure 150/74 02/05/17 09:01 O2 Sat by Pulse Oximetry (%) 100 02/05/17 10:36 Labs: CBC, BMP 02/05/17 10:15 02/04/17 05:18 INR, PTT INR 1.34 (0.82-1.09) H 02/02/17 10:20 Problem List - Problems (1) Acute blood loss anemia Code(s): D62 - ACUTE POSTHEMORRHAGIC ANEMIA (2) Upper GI hemorrhage Code(s): K92.2 - GASTROINTESTINAL HEMORRHAGE, UNSPECIFIED (3) Abdominal pain Code(s): R10.9 - UNSPECIFIED ABDOMINAL PAIN Qualifiers: Qualified Code(s): R10.13 - Epigastric pain; R10.13 - Epigastric pain (4) Demand ischemia Code(s): I24.8 - OTHER FORMS OF ACUTE ISCHEMIC HEART DISEASE (5) Elevated troponin I level Code(s): R74.8 - ABNORMAL LEVELS OF OTHER SERUM ENZYMES (6) GI bleeding Code(s): K92.2 - GASTROINTESTINAL HEMORRHAGE, UNSPECIFIED Qualifiers: Qualified Code(s): K92.1 - Melena; K92.1 - Melena
[2017-02-05] MEDS: VALSARTAN 80 MG TABLET (UD) PO SCH (13:12)
--- NOTE | 2017-02-05 16:20 | PN ---
GI Progress Note Subjective: GI NOte: Had a yellow colored stool today. NO blood reported. Alfonso denies abdominal pain. I discussed the endoscopic findings with him and need to allow a possible Dieulafoy lesion to heal before resuming Pradaxa. I also discussed the need to stay on a PPI. - Objective Vital Signs: Vital Signs Temperature 97.9 F 02/05/17 14:53 Pulse Rate 93 H 02/05/17 14:10 Respiratory Rate 18 02/05/17 13:12 Blood Pressure 122/73 02/05/17 13:12 O2 Sat by Pulse Oximetry (%) 97 02/05/17 14:10 Laboratory Tests 02/02/17 02/04/17 02/04/17 09:00 05:18 18:00 Hgb 8.2 L BUN 53 H D 13 D Creatinine 1.0 0.8 02/05/17 10:15 Hgb 8.1 L BUN Creatinine Constitutional: No Distress ...Auscultate: Yes: Normoactive Bowel Sounds ...Palpate: Yes: Soft, Other (nontender) Labs: CBC, BMP 02/05/17 10:15 02/04/17 05:18 INR, PTT INR 1.34 (0.82-1.09) H 02/02/17 10:20 Problem List - Problems (1) Abdominal pain Code(s): R10.9 - UNSPECIFIED ABDOMINAL PAIN Qualifiers: Abdominal location: epigastric Qualified Code(s): R10.13 - Epigastric pain; R10.13 - Epigastric pain (2) GI bleeding Assessment/Plan: Alfonso's bleeding appears to have been related to an NSAID erosion or Dieulafoy lesion. Will advance diet to solids in AM. Would avoid Pradaxa for 4 weeks. Code(s): K92.2 - GASTROINTESTINAL HEMORRHAGE, UNSPECIFIED Qualifiers: GI bleed type/associated pathology: melena Qualified Code(s): K92.1 - Melena; K92.1 - Melena (3) Gastric bypass status for obesity Code(s): Z98.84 - BARIATRIC SURGERY STATUS
--- NOTE | 2017-02-05 16:36 | PATH ---
Surgical Pathology Report Patient Name: LUIS ENRIQUE LEON [facility]. Rec. #: [id number] /Age/Gender: 1950 (Age: 66) / M Account: [id number] Location: 4 W TELEMETRY U Taken: 02/03/2017 Received: 02/04/2017 Reported: 02/05/2017 Physicians: Clayton Gross M.D. Specimen(s) Received RECTAL POLYP Clinical History Acute anemia, gastrointestinal bleeding Final Diagnosis RECTUM, POLYP, BIOPSY: COLONIC MUCOSA WITH PROMINENT LYMPHOID AGGREGATE AND SUPERFICIAL HYPERPLASTIC FEATURES. Electronically Signed Emilie Burnette M.D. Gross Description Received in formalin, labeled "rectal polyp biopsy" are 2 irene, irregular portions of soft tissue measuring 0.2 and 0.3 cm. in greatest dimension. The specimens are submitted in toto in one cassette. 02/04/201702/04/2017
--- NOTE | 2017-02-05 20:38 | EKG ---
Test Reason : Blood Pressure : / mmHG Vent. Rate : 093 BPM Atrial Rate : 101 BPM P-R Int : 000 ms QRS Dur : 126 ms QT Int : 404 ms P-R-T Axes : 000 005 009 degrees QTc Int : 502 ms ATRIAL FIBRILLATION RIGHT BUNDLE BRANCH BLOCK ABNORMAL ECG WHEN COMPARED WITH ECG OF 31-JAN-2017 23:24, NO SIGNIFICANT CHANGE WAS FOUND Confirmed by JUDITH MELO MD ([id number]) on 02/05/2017 8:38:29 PM Referred By: Confirmed By:JUDITH MELO MD
[2017-02-05] MEDS: ATORVASTATIN CA 10 MG TABLET (FP) PO SCH (22:16)
[2017-02-06 07:59] LABS: BASOPHIL 0.7 % (0-2.0); EOSINOPHIL 2.4 % (0-4.5); MCH 28.8 pg (25.7-33.7); MCHC 33.6 g/dl (32.0-35.9); MEAN CELL VOLUME 85.8 fl (80-96); MEAN PLT VOLUME 9.3 fl (7.5-11.1); NEUTROPHILS 62.8 % (42.8-82.8); PLATELET COUNT 183 K/MM3 (134-434); RDW 16.1 % (11.9-15.9); WHITE BLOOD COUNT 5.2 K/mm3 (4.0-10.0)
[2017-02-06 09:03] LABS: ANION GAP 6 (8-16); CALCIUM 7.5 mg/dL (8.5-10.1); CO2 29 mmol/L (21-32); CREATININE 0.9 mg/dL (0.7-1.3); GLUCOSE,RANDOM 110 mg/dL (74-106)
[2017-02-06] MEDS: PANTOPRAZOLE 40 MG TABLET (FP) PO SCH (09:46)
[2017-02-06] MEDS: VALSARTAN 80 MG TABLET (UD) PO SCH (09:46)
[2017-02-06] MEDS: METOPROLOL TARTRATE 50 MG TABLET (FP) PO SCH (09:46)
--- NOTE | 2017-02-06 09:49 | PN ---
Progress Note, Physician - Current Medication List Current Medications: Active Medications Acetaminophen (Tylenol -) 650 mg PO Q4H PRN PRN Reason: FEVER OR PAIN Last Admin: 02/04/17 21:47 Dose: 650 mg Atorvastatin Calcium (Lipitor -) 10 mg PO HS [facility] Last Admin: 02/05/17 22:16 Dose: 10 mg Dextrose/Sodium Chloride (D5-1/2ns -) 1,000 mls @ 75 mls/hr IV ASDIR [facility] Last Admin: 02/05/17 14:25 Dose: 75 mls/hr Metoprolol Tartrate (Lopressor -) 50 mg PO BID [facility] Last Admin: 02/05/17 22:16 Dose: 50 mg Ondansetron HCl (Zofran Injection) 4 mg IVPUSH Q6H PRN PRN Reason: NAUSEA Pantoprazole Sodium (Protonix -) 40 mg PO BID [facility] Last Admin: 02/05/17 22:16 Dose: 40 mg Valsartan (Diovan -) 80 mg PO DAILY [facility] Last Admin: 02/06/17 09:46 Dose: 80 mg - Objective Vital Signs: Vital Signs Temperature 98.4 F 02/06/17 02:00 Pulse Rate 59 L 02/06/17 02:00 Respiratory Rate 20 02/06/17 02:00 Blood Pressure 101/69 02/06/17 02:00 O2 Sat by Pulse Oximetry (%) 98 02/05/17 21:00 Labs: CBC, BMP 02/06/17 05:20 02/06/17 05:20 INR, PTT INR 1.34 (0.82-1.09) H 02/02/17 10:20 Problem List - Problems (1) Elevated troponin I level Code(s): R74.8 - ABNORMAL LEVELS OF OTHER SERUM ENZYMES (2) Abdominal pain Code(s): R10.9 - UNSPECIFIED ABDOMINAL PAIN Qualifiers: Abdominal location: epigastric Qualified Code(s): R10.13 - Epigastric pain (3) GI bleeding Code(s): K92.2 - GASTROINTESTINAL HEMORRHAGE, UNSPECIFIED Qualifiers: GI bleed type/associated pathology: melena Qualified Code(s): K92.1 - Melena (4) Demand ischemia Code(s): I24.8 - OTHER FORMS OF ACUTE ISCHEMIC HEART DISEASE (5) Upper GI hemorrhage Code(s): K92.2 - GASTROINTESTINAL HEMORRHAGE, UNSPECIFIED (6) Acute blood loss anemia Code(s): D62 - ACUTE POSTHEMORRHAGIC ANEMIA
[2017-02-06 10:28] VITALS: BP 130/68; PULSE 70; TEMP 98
--- NOTE | 2017-02-06 10:38 | PN ---
Progress Note, Physician History of Present Illness: Denies recurrent epigastric discomfort, melena, hematochezia, Hgb stable, EGD shows Dieulafoy lesion vs NSAID-associated gastritis. - Current Medication List Current Medications: Active Medications Acetaminophen (Tylenol -) 650 mg PO Q4H PRN PRN Reason: FEVER OR PAIN Last Admin: 02/04/17 21:47 Dose: 650 mg Atorvastatin Calcium (Lipitor -) 10 mg PO HS [facility] Last Admin: 02/05/17 22:16 Dose: 10 mg Dextrose/Sodium Chloride (D5-1/2ns -) 1,000 mls @ 75 mls/hr IV ASDIR [facility] Last Admin: 02/05/17 14:25 Dose: 75 mls/hr Metoprolol Tartrate (Lopressor -) 50 mg PO BID [facility] Last Admin: 02/05/17 22:16 Dose: 50 mg Ondansetron HCl (Zofran Injection) 4 mg IVPUSH Q6H PRN PRN Reason: NAUSEA Pantoprazole Sodium (Protonix -) 40 mg PO BID [facility] Last Admin: 02/05/17 22:16 Dose: 40 mg Valsartan (Diovan -) 80 mg PO DAILY [facility] Last Admin: 02/06/17 09:46 Dose: 80 mg - Objective Vital Signs: Vital Signs Temperature 98 F 02/06/17 10:00 Pulse Rate 70 02/06/17 10:00 Respiratory Rate 18 02/06/17 10:00 Blood Pressure 130/68 02/06/17 10:00 O2 Sat by Pulse Oximetry (%) 98 02/05/17 21:00 Constitutional: Yes: No Distress, Calm Neck: Yes: Supple Cardiovascular: Yes: Pulse Irregular, Murmur Respiratory: Yes: Regular, Diminished Gastrointestinal: Yes: Soft, Abdomen, Obese, Hypoactive Bowel Sounds Edema: No Labs: CBC, BMP 02/06/17 05:20 02/06/17 05:20 INR, PTT INR 1.34 (0.82-1.09) H 02/02/17 10:20 - ....Imaging EKG: Report Reviewed (Tele: Rate-controlled afib) Problem List - Problems (1) Gastritis Code(s): K29.70 - GASTRITIS, UNSPECIFIED, WITHOUT BLEEDING Qualifiers: Gastritis type: unspecified gastritis (2) CAD (coronary artery disease) Code(s): I25.10 - ATHSCL HEART DISEASE OF [place] CORONARY ARTERY W/O ANG PCTRS Qualifiers: Coronary Disease-Associated Artery/Lesion type: [place] artery (3) Afib Code(s): I48.91 - UNSPECIFIED ATRIAL FIBRILLATION Qualifiers: Atrial fibrillation type: persistent Qualified Code(s): I48.1 - Persistent atrial fibrillation (4) Hypercholesteremia Code(s): E78.0 - PURE HYPERCHOLESTEROLEMIA * DO NOT USE * (5) HTN (hypertension) Code(s): I10 - ESSENTIAL (PRIMARY) HYPERTENSION Qualifiers: Hypertension type: essential hypertension Qualified Code(s): I10 - Essential (primary) hypertension (6) CVA (cerebrovascular accident) Code(s): I63.9 - CEREBRAL INFARCTION, UNSPECIFIED Qualifiers: CVA mechanism: unspecified Qualified Code(s): I63.9 - Cerebral infarction, unspecified (7) Elevated troponin I level Code(s): R74.8 - ABNORMAL LEVELS OF OTHER SERUM ENZYMES (8) Abdominal pain Code(s): R10.9 - UNSPECIFIED ABDOMINAL PAIN Qualifiers: Abdominal location: epigastric Qualified Code(s): R10.13 - Epigastric pain (9) GI bleeding Code(s): K92.2 - GASTROINTESTINAL HEMORRHAGE, UNSPECIFIED Qualifiers: GI bleed type/associated pathology: melena Qualified Code(s): K92.1 - Melena (10) Gastric bypass status for obesity Code(s): Z98.84 - BARIATRIC SURGERY STATUS (11) Demand ischemia Code(s): I24.8 - OTHER FORMS OF ACUTE ISCHEMIC HEART DISEASE (12) Upper GI hemorrhage Code(s): K92.2 - GASTROINTESTINAL HEMORRHAGE, UNSPECIFIED Assessment/Plan 05/02/2016 Echo: Severe TERA, normal LV size and fxn without sig valve abnl 01/07/2017 R&LHC: Single vessel CAD mid 50%, 70% small distal LAD, severe pulm HTN 66/16/36, PCWP 23 1. Gastrointestinal bleed with microcytic anemia, Dieulafoy lesion vs NSAID- associated PUD post intervention 2. 1 vessel CAD angina pectoris with evidence of demand ischemic injury 3. Diastolic left ventricular dysfunction with class 0 [place] [employer] classification left ventricular failure 4. Persistent atrial fibrillation, currently off of anticoagulation therapy 5. History of lacunar infarct 6. Hypertensive cardiovascular disease 7. Hyperlipidemia 8. OSAS on CPAP 9. Morbid obesity post gastric bypass surgery P: 1. Resume Pradaxa after 4 weeks of healing per GI recommendations, avoid NSAIDs 2. Continue Metoprolol Tartrate [Lopressor] 50 mg PO BID, Atorvastatin Ca [ Lipitor] 10 mg PO HS, Diovan 80 qd 3. Transfuse pRBC to maintain Hgb>8.0, GI protection 4. May d/c from CV standpoint
--- NOTE | 2017-02-06 11:12 | DS ---
Physical Examination Vital Signs: Vital Signs Temperature 98 F 02/06/17 10:00 Pulse Rate 70 02/06/17 10:00 Respiratory Rate 18 02/06/17 10:00 Blood Pressure 130/68 02/06/17 10:00 O2 Sat by Pulse Oximetry (%) 98 02/05/17 21:00 Labs: CBC, BMP 02/06/17 05:20 02/06/17 05:20 Discharge Summary Reason For Visit: ELEVATED TROPONIN LEVEL I Current Active Problems Abdominal pain (Acute) Acute blood loss anemia (Acute) Demand ischemia (Acute) Elevated troponin I level (Acute) GI bleeding (Acute) Gastric bypass status for obesity (Acute) Pre-procedural cardiovascular examination (Acute) Upper GI hemorrhage (Acute) Condition: Stable - Instructions Referrals: Karlos Rose MD [Primary Care Provider] - - Home Medications Comprehensive Discharge Medication List: Ambulatory Orders Metoprolol Tartrate [Lopressor] 50 mg PO BID 05/03/11 Dabigatran Etexilate Mesylate [Pradaxa -] 150 mg PO BID 07/24/16 Aspirin [ASA -] 81 mg PO DAILY 01/31/17
--- NOTE | 2017-02-06 13:02 | PN ---
GI Progress Note Subjective: GI NOte. No bleeding. Tolerating solids. I spoke with Dr Gross who cannot confirm that the difinitive bleeding site was found. I have given Alfonso out business card to make an appointment with Dr Salomon to arrange a capsule endoscopy. This may need to be endoscopicaly placed given the Billroth II bypass. - Objective Vital Signs: Vital Signs Temperature 98 F 02/06/17 10:00 Pulse Rate 70 02/06/17 10:00 Respiratory Rate 18 02/06/17 10:00 Blood Pressure 130/68 02/06/17 10:00 O2 Sat by Pulse Oximetry (%) 100 02/06/17 09:00 Laboratory Tests 02/01/17 02/02/17 02/02/17 20:25 09:00 17:00 Hgb 6.4 L* D 8.0 L D 6.6 L* D Hct 20.1 L 24.1 L D 20.0 L D 02/04/17 02/06/17 18:00 05:20 Hgb 8.2 L 8.3 L Hct 24.4 L 24.7 L Constitutional: No Distress ...Auscultate: Yes: Normoactive Bowel Sounds ...Palpate: Yes: Soft, Other (nontender) Labs: CBC, BMP 02/06/17 05:20 02/06/17 05:20 INR, PTT INR 1.34 (0.82-1.09) H 02/02/17 10:20 Problem List - Problems (1) Abdominal pain Code(s): R10.9 - UNSPECIFIED ABDOMINAL PAIN Qualifiers: Abdominal location: epigastric Qualified Code(s): R10.13 - Epigastric pain (2) GI bleeding Assessment/Plan: Alfonso's bleeding appears to have resolved. Cannot confirm the source.Would avoid Pradaxa until capsule endoscopy is done and maintain PPI. NO GI objections to discharge. Discussed with Dr Muro. Code(s): K92.2 - GASTROINTESTINAL HEMORRHAGE, UNSPECIFIED Qualifiers: GI bleed type/associated pathology: melena Qualified Code(s): K92.1 - Melena (3) Gastric bypass status for obesity Code(s): Z98.84 - BARIATRIC SURGERY STATUS
--- NOTE | 2017-02-08 11:54 | EKG ---
Test Reason : Blood Pressure : / mmHG Vent. Rate : 063 BPM Atrial Rate : 078 BPM P-R Int : 000 ms QRS Dur : 138 ms QT Int : 452 ms P-R-T Axes : 000 023 023 degrees QTc Int : 462 ms ATRIAL FIBRILLATION RIGHT BUNDLE BRANCH BLOCK ABNORMAL ECG WHEN COMPARED WITH ECG OF 01-FEB-2017 16:38, NO SIGNIFICANT CHANGE WAS FOUND Confirmed by JENAE ARNOLD MD ([id number]) on 02/08/2017 11:54:30 AM Referred By: REI Confirmed By:JENAE ARNOLD MD
== END 2017-02-06 12:51 | disposition home or self-care (01) | DRG 378 ==
LOC: JER 21:50 → SUPCPDRO 21:50 → JERBED 02-01 00:39 → UNDOADMOB 02-01 01:10 → JERBED 02-01 01:10 → OBSVTOIN 02-01 11:17 → J4W 02-01 19:15
PROVIDERS: ADMIT Internal Medicine; ATTEND Internal Medicine
PROC: 0D9670Z Drainage of Stomach with Drainage Device, Via Natural or Artificial Opening (ICD-10-PCS; principal; 2017-02-01)
PROC: 30233N1 Transfusion of Nonautologous Red Blood Cells into Peripheral Vein, Percutaneous Approach (ICD-10-PCS; 2017-02-01)
PROC: 0DJ08ZZ Inspection of Upper Intestinal Tract, Via Natural or Artificial Opening Endoscopic (ICD-10-PCS; 2017-02-02)
PROC: 0DBP8ZX Excision of Rectum, Via Natural or Artificial Opening Endoscopic, Diagnostic (ICD-10-PCS; 2017-02-03)
PROC: 0DDP8ZX Extraction of Rectum, Via Natural or Artificial Opening Endoscopic, Diagnostic (ICD-10-PCS; 2017-02-03)
PROC: 0DBP8ZX Excision of Rectum, Via Natural or Artificial Opening Endoscopic, Diagnostic (ICD-10-PCS; 2017-02-03)
PROC: 0W3P8ZZ Control Bleeding in Gastrointestinal Tract, Via Natural or Artificial Opening Endoscopic (ICD-10-PCS; 2017-02-03)
DX: K92.2 Gastrointestinal hemorrhage, unspecified (principal); I48.1 Persistent atrial fibrillation; Z68.44 Body mass index [BMI] 60.0-69.9, adult; I24.8 Other forms of acute ischemic heart disease; D62 Acute posthemorrhagic anemia; K31.82 Dieulafoy lesion (hemorrhagic) of stomach and duodenum; K92.1 Melena; R74.8 Abnormal levels of other serum enzymes; Z98.84 Bariatric surgery status; K29.70 Gastritis, unspecified, without bleeding; E66.01 Morbid (severe) obesity due to excess calories; E78.5 Hyperlipidemia, unspecified; F41.8 Other specified anxiety disorders; G47.33 Obstructive sleep apnea (adult) (pediatric); K64.8 Other hemorrhoids; I27.20 Pulmonary hypertension, unspecified; I11.9 Hypertensive heart disease without heart failure; R00.0 Tachycardia, unspecified; R06.82 Tachypnea, not elsewhere classified; Z79.1 Long term (current) use of non-steroidal anti-inflammatories (NSAID); Z86.73 Personal history of transient ischemic attack (TIA), and cerebral infarction without residual deficits
CPT/HCPCS: 36415; 36430; 71010-TC; 80048; 80053; 82550; 82553; 82607; 82728; 82746; 83540; 83550; 83605; 83690; 84484; 85025; 85027; 85044; 85610; 85730; 86850; 86900; 86901; 86922; 88305-TC; 93005; 93010; 94660; 94760; 99284-25; G0378; P9038; P9058

== ENCOUNTER 2018-01-01 12:22 | Inpatient (IN) | payer OTHER ==
--- NOTE | 2018-01-01 12:35 | PDOC ---
History of Present Illness <Keira Smith - Last Filed: 01/01/18 14:13> - History of Present Illness Initial Comments: 67 year old male with PMH of Afib (Pradaxa, on samples currently), GI Bleed ( required transfusion over the past year), HTN, HLD, CAD s/p cath last year (per patient "they checked my heart through my wrist"), TIA, Sleep Apnea (not on CPAP ,but currently being ordered), severe obesity s/p gastric bypass 15 yrs ago ( has since gained back all of his pre-surgery weight because of dietary non- compliance), and anxiety presenting with chest pain/ epigastric pain and fatigue for the past 2 weeks that has acutely worsened today. Patient states that he gets infrasternal / epigastric pain that is a pressure, non-exertional, non-radiating, not related to food intake, and worsened when laying flat. Denies any nausea, vomiting, diaphoresis, fevers, chills, or other symptoms. 01/01/18 12:39 <Juan Iqbal - Last Filed: 01/01/18 14:54> - General Chief Complaint: Chest Pain Stated Complaint: CHEST PAIN Time Seen by Provider: 01/01/18 12:35 Past History <Keira Smith - Last Filed: 01/01/18 14:13> - Past Medical History Anemia: No Asthma: No Cancer: No Cardiac Disorders: Yes (AFIB) CVA: No COPD: No CHF: No Dementia: No Diabetes: No GI Disorders: Yes (gastric bypass) Disorders: No HTN: Yes Hypercholesterolemia: No Liver Disease: No Seizures: No Thyroid Disease: No - Surgical History Abdominal Surgery: Yes (GASTRIC BYPASS) Appendectomy: No Cardiac Surgery: No Cholecystectomy: No Lung Surgery: No Neurologic Surgery: No Orthopedic Surgery: Yes (FX (L) ANKLE) - Suicide/Smoking/Psychosocial Hx Smoking Status: No Smoking History: Never smoked Have you smoked in the past 12 months: No Number of Cigarettes Smoked Daily: 0 Hx Alcohol Use: Yes (occasional wine) Drug/Substance Use Hx: No Substance Use Type: None Hx Substance Use Treatment: No <Juan Iqbal - Last Filed: 01/01/18 14:54> - Past Medical History Allergies/Adverse Reactions: Allergies Allergy/AdvReac Type Severity Reaction Status Date / Time No Known Allergies Allergy Verified 01/01/18 12:36 Home Medications: Ambulatory Orders Metoprolol Tartrate [Lopressor] 50 mg PO BID 05/03/11 Atorvastatin Ca [Lipitor] 10 mg PO HS #60 tablet 02/06/17 Dabigatran Etexilate Mesylate [Pradaxa -] 150 mg PO DAILY 10/08/17 Aspirin [ASA -] 81 mg PO DAILY 01/01/18 Pantoprazole Sodium [Protonix -] 40 mg PO BID 01/01/18 Review of Systems - Review of Systems Constitutional: No: Chills, Diaphoresis, Fever, Loss of Appetite HEENTM: No: Eye Pain, Blurred Vision Respiratory: Yes: Orthopnea, Shortness of Breath. No: Cough, Productive cough Cardiac (ROS): Yes: Chest Pain, Irregular Heart Rate, Lightheadedness. No: Syncope, Chest Tightness ABD/GI: No: Constipated, Diarrhea, Nausea, Vomiting : No: Dysuria, Discharge, Frequency <Juan Iqbal - Last Filed: 01/01/18 14:54> *Physical Exam - Vital Signs Last Vital Signs Temp Pulse Resp BP Pulse Ox 97.6 F 58 L 20 162/104 H 96 01/01/18 12:26 01/01/18 13:15 01/01/18 13:15 01/01/18 13:15 01/01/18 13:15 <Keira Smith - Last Filed: 01/01/18 14:13> - Physical Exam General Appearance: Yes: Nourished, Appropriately Dressed, Mild Distress HEENT: positive: EOMI, YEFRI, Normal ENT Inspection, Normal Voice, Pharynx Normal. negative: Symmetrical Neck: positive: Trachea midline, Normal Thyroid, Supple. negative: Tender, Rigid Respiratory/Chest: positive: Lungs Clear, Respiratory Distress (mild respiratory distress). negative: Chest Tender, Normal Breath Sounds (faint bilateral lower lung field crackles), Accessory Muscle Use Cardiovascular: positive: Regular Rate, Edema (2+ bl LE piting edema), Irregularly Irregular. negative: Regular Rhythm Gastrointestinal/Abdominal: positive: Flat, Soft, Increased Bowel Sounds. negative: Normal Bowel Sounds, Tender Rectal Exam: positive: heme negative stool, normal exam, normal rectal tone Lymphatic: negative: Adenopathy, Tenderness Musculoskeletal: positive: Normal Inspection. negative: CVA Tenderness Extremity: positive: Normal Capillary Refill, Normal Inspection, Normal Range of Motion. negative: Tender Integumentary: positive: Normal Color, Dry, Warm Neurologic: positive: push button switch assembler II-XII NML intact, Fully Oriented, Alert, Normal Mood/ Affect, Normal Response, Motor Strength 5/5 <Juan Iqbal - Last Filed: 01/01/18 14:54> Heart Score/ECG Review - History History: Moderately suspicious - Electrocardiogram EKG: Non specific repolarization disturbance - Age Age: >/= 65 - Risk Factors Risk Factors Heart Score: Yes Hx Hypercholesterolemia, Yes Hx Hypertension, Yes Hx Obesity Based on the list above the patient has:: >/=3 risk factors or Hx atherosclerotic disease - Troponin Troponin: 1-3x normal limit - Score Heart Score - Total: 7 <Juan Iqbal - Last Filed: 01/01/18 14:54> ED Treatment Course - LABORATORY CBC & Chemistry Diagram: 01/01/18 12:34 01/01/18 12:34 - ADDITIONAL ORDERS Additional order review: Laboratory Results 01/01/18 01/01/18 01/01/18 13:04 12:34 12:34 PT with INR 15.70 H INR 1.33 H Sodium 140 Potassium 4.5 Chloride 107 Carbon Dioxide 26 Anion Gap 8 BUN 19 H Creatinine 0.9 Creat Clearance w eGFR > 60 Random Glucose 94 Calcium 8.4 L Phosphorus 3.8 Magnesium 2.1 Total Bilirubin 0.6 AST 28 ALT 29 Alkaline Phosphatase 78 Troponin I 0.11 H B-Natriuretic Peptide 1215.6 H Total Protein 7.7 Albumin 3.7 Stool Occult Blood Negative 01/01/18 12:34 RBC 4.19 MCV 82.1 MCHC 30.7 L RDW 20.3 H MPV 9.8 Neutrophils % 68.3 Lymphocytes % 17.8 D Monocytes % 12.1 H Eosinophils % 1.1 Basophils % 0.7 - Medications Given in the ED: ED Medications Discontinued Medications Generic Name Dose Route Start Last Admin Trade Name Freq PRN Reason Stop Dose Admin Al Hydroxide/Mg Hydroxide 30 ml 01/01/18 12:53 01/01/18 13:15 Mylanta Oral Suspension - PO 01/01/18 12:54 30 ml ONCE ONE Administration Aspirin 324 mg 01/01/18 13:24 01/01/18 13:55 Asa - PO 01/01/18 13:25 324 mg ONCE ONE Administration Famotidine/Sodium Chloride 20 mg in 50 mls @ 100 mls/hr 01/01/18 12:53 13:15 Pepcid 20 Mg Premixed Ivpb - IVPB 01/01/18 13:22 100 mls/hr ONCE ONE Administration Nitroglycerin 1 inch 01/01/18 13:56 01/01/18 14:11 Nitro-Bid 2% Paste - TD 01/01/18 13:57 1 inch ONCE ONE Administration - Consult/PCP Time Called: 14:13 (Page Dr. Shameka Kennedy who admits for Dr. Rose. ) Case discussed with personal care physician: Karlos Rsoe <Keira Smith - Last Filed: 01/01/18 14:13> - LABORATORY CBC & Chemistry Diagram: 01/01/18 12:34 01/01/18 12:34 <Juan Iqbal - Last Filed: 01/01/18 14:54> Medical Decision Making - Medical Decision Making 67 year old male with PMH of HTN,. HLD, TIA, Afib (on pradaxa) presenting with wth chest pain, SOB, and fatigue for the past week. Tropnin elevated (0.11 vs. 0.08 previously) but EKG (afib, rate 63, QRS 132, QTc 476, normal axis, and RBBB ) unchanged from previous on 09/2017. BNP also elevated so reason for fatigue is new cardiac functional loss or CHF. Maintained on 2 L O2 for desats to mid 80s on RA, CXR demonstrating cephalization. Patient given nitro paste for elevated diastolic pressure to 100s and continued chest pain, given lasix IV 20 for suspected pulmonar vascular congestion, asa for suspicious chest pain. Spoke to Dr. Hill from cardiology and Dr. Moss for admission., Admitted for tele obs. 01/01/18 14:45 <Juan Iqbal - Last Filed: 01/01/18 14:54> *DC/Admit/Observation/Transfer <Keira Smith - Last Filed: 01/01/18 14:13> - Discharge Dispostion Decision to Admit order: Yes <Juan Iqbal - Last Filed: 01/01/18 14:54> Diagnosis at time of Disposition: Chest pain Qualifiers: Chest pain type: unspecified Qualified Code(s): R07.9 - Chest pain, unspecified - Discharge Dispostion Condition at time of disposition: Stable - Referrals Referrals: Karlos Rose MD [Primary Care Provider] -
[2018-01-01] MEDS ORDERED: FAMOTIDINE 20 MG/50 ML IVPB 20 MG/50 ML MG IVPB ONE ×2 (12:53→13:24)
[2018-01-01] MEDS ORDERED: MAG HYDROX/AL HYDROX/SIMETH 30 ML UNIT-DOSE CUP PO ONE (12:53)
[2018-01-01 13:03] LABS: BASO % 0.7 % (0-2.0); EOS % 1.1 % (0-4.5); HEMATOCRIT 34.4 % (35.4-49); HEMOGLOBIN 10.6 GM/dL (11.7-16.9); LYMPH % 17.8 % (8-40); MCH 25.3 pg (25.7-33.7); MCHC 30.7 g/dl (32.0-35.9); MEAN CELL VOLUME 82.1 fl (80-96); MEAN PLT VOLUME 9.8 fl (7.5-11.1); MONO % 12.1 % (3.8-10.2); NEUT % 68.3 % (42.8-82.8); PLATELET COUNT 246 K/MM3 (134-434); RBC 4.19 M/mm3 (4.00-5.60); RDW 20.3 % (11.9-15.9); WHITE BLOOD COUNT 4.7 K/mm3 (4.0-10.0)
[2018-01-01 13:13] LABS: INR 1.33 (0.83-1.09); PROTHROMBIN TIME (PATIENT) 15.7 SEC (9.7-13.0)
[2018-01-01] MEDS ORDERED: MAG HYDROX/AL HYDROX/SIMETH 30 ML UNIT-DOSE CUP ONE (13:24)
[2018-01-01] MEDS ORDERED: ASPIRIN 81 MG CHEWABLE TABLETS PO ONE (13:24)
[2018-01-01 13:35] LABS: ALBUMIN 3.7 g/dl (3.4-5.0); ALK PHOS 78 U/L (45-117); ANION GAP 8 MMOL/L (8-16); BILIRUBIN,TOTAL 0.6 mg/dL (0.2-1); BLOOD UREA NITROGEN 19 mg/dL (7-18); CALCIUM 8.4 mg/dL (8.5-10.1); CHLORIDE 107 mmol/L (98-107); CO2 26 mmol/L (21-32); CREATININE 0.9 mg/dL (0.55-1.3); GLUCOSE,RANDOM 94 mg/dL (74-106); MAGNESIUM 2.1 mg/dL (1.8-2.4); N-TERMINAL BNP 1215.6 pg/ml (5-125); PHOSPHOROUS 3.8 mg/dL (2.5-4.9); POTASSIUM 4.5 mmol/L (3.5-5.1); SGOT/AST 28 U/L (15-37); SGPT/ALT 29 U/L (13-61); SODIUM 140 mmol/L (136-145); TOT PROT 7.7 g/dl (6.4-8.2)
[2018-01-01] MEDS ORDERED: ASPIRIN 81 MG CHEWABLE TABLETS ONE (13:51)
[2018-01-01] MEDS ORDERED: NITROGLYCERIN 2% OINTMENT - 1GM PACKET TD ONE ×2 (13:56→14:11)
--- NOTE | 2018-01-01 13:59 | PDOC ---
Attending Attestation - Resident Resident Name: Enmanuel Iqbaltodddestiny - ED Attending Attestation I have performed the following: I have examined & evaluated the patient, The case was reviewed & discussed with the resident, I agree w/resident's findings & plan, Exceptions are as noted - Physicial Exam PE: 01/01/18 13:56 Patient is awake and alert, morbidly obese, in no distress Normocephalic, Atraumatic PERRLA, EOMI, conjunctiva are pink No JVD Breath sounds are distant bilaterally due to body habitus; Irregularly irregular + Minimal lower extremity edema bilaterally - Medical Decision Making 01/01/18 13:57 67-year-old male with history of morbid obesity, atrial fibrillation and Pradaxa , gastric bypass presents with substernal chest pressure over the past several days to weeks associated with shortness of breath, dyspnea and overall weakness. In the ER, patient is borderline hypoxemic and hypertensive. EKG shows A. fib without evidence of acute ischemia. Differential diagnoses ACS versus gastritis versus peptic ulcer disease. We'll administer aspirin as well as H2 blockers. Will obtain chest x-ray. Will rule out IN. <Ruperto Devries - Last Filed: 01/01/18 13:56> - HPI HPI: This patient is a 67 year old male with PMHx of Afib (on Pradaxa), GI Bleed ( required transfusion over the past year), HTN, HLD, CAD s/p CABG, TIA, Sleep Apnea (not on CPAP,but currently being ordered), severe obesity s/p gastric bypass 15 yrs ago (has since gained back all of his pre-surgery weight because of dietary non-compliance), and anxiety presenting with chest pain/epigastric pain and fatigue for the past 2 weeks that became acutely worse today. He also reports occasional shortness of breath that is exacerbated during ambulation. He denies fever, chills, cough, N/V/D, diaphoresis, constipation, hematuria, dysuria. <Keira Smith - Last Filed: 01/01/18 14:00>
[2018-01-01] MEDS ORDERED: FUROSEMIDE 40 MG/4 ML INJECTABLE VIAL IVPUSH SCH (14:45)
[2018-01-01] MEDS ORDERED: FUROSEMIDE 40 MG/4 ML INJECTABLE VIAL ONE (14:58)
[2018-01-01] MEDS: FUROSEMIDE 40 MG/4 ML INJECTABLE VIAL IVPUSH SCH (14:59)
[2018-01-01 19:11] LABS: URINE APPEARANCE CLEAR; URINE BILIRUBIN NEGATIVE (<2.0 mg/dL); URINE COLOR LTYELLOW; URINE GLUCOSE (UA) NEGATIVE (NEGATIVE); URINE KETONE NEGATIVE (NEGATIVE); URINE LEUK ESTERASE NEGATIVE (NEGATIVE); URINE NITRITE NEGATIVE (NEGATIVE); URINE UROBILINOGEN NEGATIVE mg/dL (0.2-1.0)
[2018-01-01 19:18] LABS: URINE PROTEIN 1+ (NEGATIVE)
[2018-01-01 19:21] LABS: URINE MUCUS RARE
[2018-01-01] MEDS: METOPROLOL TARTRATE 50 MG TABLET (FP) PO SCH (23:07)
[2018-01-01] MEDS: PANTOPRAZOLE 40 MG TABLET (FP) PO SCH (23:14)
[2018-01-01] MEDS: DABIGATRAN ETEXILATE MESYLATE 150 MG CAPSULE PO SCH (23:14)
[2018-01-01] MEDS: ATORVASTATIN CA 10 MG TABLET (FP) PO SCH (23:14)
[2018-01-02 06:42] LABS: BASO % 0.6 % (0-2.0); EOS % 1.4 % (0-4.5); HEMATOCRIT 34.3 % (35.4-49); HEMOGLOBIN 10.4 GM/dL (11.7-16.9); LYMPH % 19.1 % (8-40); MCHC 30.2 g/dl (32.0-35.9); MEAN CELL VOLUME 82.8 fl (80-96); MEAN PLT VOLUME 8.6 fl (7.5-11.1); MONO % 11.5 % (3.8-10.2); NEUT % 67.4 % (42.8-82.8); PLATELET COUNT 223 K/MM3 (134-434); RBC 4.14 M/mm3 (4.00-5.60)
[2018-01-02 07:12] LABS: ALBUMIN 3.8 g/dl (3.4-5.0); ALK PHOS 76 U/L (45-117); ANION GAP 5 MMOL/L (8-16); BILIRUBIN,TOTAL 0.8 mg/dL (0.2-1); BLOOD UREA NITROGEN 16 mg/dL (7-18); CALCIUM 8.3 mg/dL (8.5-10.1); CHLORIDE 103 mmol/L (98-107); CHOLESTEROL 128 mg/dL (50-200); CO2 30 mmol/L (21-32); CREATININE 0.9 mg/dL (0.55-1.3); GLUCOSE,RANDOM 89 mg/dL (74-106); HDL CHOLESTEROL 48 mg/dL (40-60); POTASSIUM 3.9 mmol/L (3.5-5.1); SGOT/AST 19 U/L (15-37); SGPT/ALT 27 U/L (13-61); SODIUM 139 mmol/L (136-145); TOT PROT 7.6 g/dl (6.4-8.2); TRIGLYCERIDES 71 mg/dL (0-150)
[2018-01-02] MEDS ORDERED: PT OWN MED DRAWER 7, Y5N ONE ×2 (08:51→21:30)
[2018-01-02] MEDS: DABIGATRAN ETEXILATE MESYLATE 150 MG CAPSULE PO SCH ×2 (09:12→21:44)
[2018-01-02] MEDS: METOPROLOL TARTRATE 50 MG TABLET (FP) PO SCH (09:12)
[2018-01-02] MEDS: FUROSEMIDE 40 MG/4 ML INJECTABLE VIAL IVPUSH SCH (09:12)
[2018-01-02] MEDS: PANTOPRAZOLE 40 MG TABLET (FP) PO SCH ×2 (09:13→21:44)
[2018-01-02] MEDS ORDERED: DABIGATRAN ETEXILATE MESYLATE 150 MG CAPSULE PO SCH (10:00)
[2018-01-02] MEDS ORDERED: ASPIRIN 81 MG CHEWABLE TABLETS PO SCH (10:00)
--- NOTE | 2018-01-02 11:31 | HP ---
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: CVA Cardiovascular: Yes: AFIB, CAD, HTN, Hyperlipdemia Pulmonary: Yes: Sleep Apnea (on cpap) Gastrointestinal: Yes: GI Bleed (gastrc body Dieulafoy erosions endoclipped .), Other (bariatric gastric bypass, hyperplastic rectal polyp removed 02/15) Renal/: Yes: Renal Calculi Psych: Yes: Anxiety Endocrine: Yes: Other (Morbid obesity) - Past Surgical History Past Surgical History: Yes: Bariatric Surgery (Gastric bypass at [facility]) - Smoking History Smoking history: Never smoked Have you smoked in the past 12 months: No Aproximately how many cigarettes per day: 0 - Alcohol/Substance Use Hx Alcohol Use: Yes (occasional wine) History of Substance Use: reports: None - Social History ADL: Independent 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, 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 History of Recent Travel: No Home Medications - Allergies Allergies/Adverse Reactions: Allergies Allergy/AdvReac Type Severity Reaction Status Date / Time No Known Allergies Allergy Verified 01/01/18 12:36 - Home Medications Home Medications: Ambulatory Orders Metoprolol Tartrate [Lopressor] 50 mg PO BID 05/03/11 Atorvastatin Ca [Lipitor] 10 mg PO HS #60 tablet 02/06/17 Dabigatran Etexilate Mesylate [Pradaxa -] 150 mg PO BID 10/08/17 Aspirin [ASA -] 81 mg PO DAILY 01/01/18 Pantoprazole Sodium [Protonix -] 40 mg PO BID 01/01/18 Furosemide [Lasix] 40 mg PO DAILY #30 tablet 01/02/18 Family Disease History - Family Disease History Family Disease History: CA: Mother (pancreatic cancer), Sister (ovarian cancer) , Daughter ( ovarian cancer), Other: Father (?) Review of Systems - Review of Systems Constitutional: denies: Chills, Fever Cardiovascular: reports: Edema, Shortness of Breath. denies: Chest Pain, Palpitations Gastrointestinal: reports: Indigestion Physical Examination Vital Signs: Vital Signs Temperature 98.0 F 01/02/18 06:11 Pulse Rate 71 01/02/18 06:11 Respiratory Rate 20 01/02/18 06:11 Blood Pressure 148/61 01/02/18 06:11 O2 Sat by Pulse Oximetry (%) 95 01/01/18 19:21 Constitutional: Yes: No Distress Cardiovascular: Yes: Regular Rate and Rhythm, Murmur Respiratory: Yes: Diminished Gastrointestinal: Yes: Normal Bowel Sounds, Soft, Abdomen, Obese. No: Tenderness Edema: Yes Edema: LLE: Trace Labs: CBC, BMP 01/02/18 06:00 01/02/18 06:00 Imaging - Results Chest X-ray: Image Reviewed (mild congestion) EKG: Image Reviewed (AFib) Problem List - Problems (1) Chest pain Code(s): R07.9 - CHEST PAIN, UNSPECIFIED Qualifiers: Chest pain type: unspecified Qualified Code(s): R07.9 - Chest pain, unspecified (2) Abdominal pain Code(s): R10.9 - UNSPECIFIED ABDOMINAL PAIN Qualifiers: Abdominal location: epigastric Qualified Code(s): R10.13 - Epigastric pain (3) Afib Code(s): I48.91 - UNSPECIFIED ATRIAL FIBRILLATION Qualifiers: Atrial fibrillation type: persistent Qualified Code(s): I48.1 - Persistent atrial fibrillation (4) CAD (coronary artery disease) Code(s): I25.10 - ATHSCL HEART DISEASE OF [place] CORONARY ARTERY W/O ANG PCTRS Qualifiers: Coronary Disease-Associated Artery/Lesion type: [place] artery [place] vs. transplanted heart: [place] heart Associated angina: without angina Qualified Code(s): I25.10 - Atherosclerotic heart disease of [place] coronary artery without angina pectoris Assessment/Plan PLAN IV Lasix given yesterday and today May change to PO lasix continue with Arielle Spoke with Outbound Sales Consultant-- ok for discharge home and he needs to follow up withCardiology as outpt Troponins have flattened'
--- NOTE | 2018-01-02 12:06 | CON.CARD ---
Consult Consult Specialty:: Cardiology Referred by:: Abbey Kennedy MD Reason for Consultation:: Chest pain, dyspnea - History of Present Illness Chief Complaint: Chest pain, dyspnea History of Present Illness: 67 yo man with H/O HTN, Chol, ASHD, Afib on Eliquis, OSAS off cpap, h/o gastric bypass, lacunar infarct, previous UGI bleed 02/15 referable to [place] lesion post endoclipping and tattooing, moderately severe reflux esophagitis above a sliding hiatal hernia with linear ulcer 10/16, improved on PPI. He presents with SOB, chest pain, fatigue without near or true syncope, palpitations, orthopnea, PND or LE edema, NSAID use. 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 Cardio/Vascular: Yes: AFIB, CAD, HTN, Hyperlipdemia Pulmonary: Yes: Sleep Apnea (on cpap) Gastrointestinal: Yes: GI Bleed (gastrc body Dieulafoy erosions endoclipped .), Other (bariatric gastric bypass, hyperplastic rectal polyp removed 02/15) Renal/: Yes: Renal Calculi Psych: Yes: Anxiety Endocrine: Yes: Other (Morbid obesity) - Past Surgical History Past Surgical History: Yes: Bariatric Surgery (Gastric bypass at [facility]) - Alcohol/Substance Use Hx Alcohol Use: Yes (occasional wine) History of Substance Use: reports: None - Smoking History Smoking history: Never smoked Have you smoked in the past 12 months: No Aproximately how many cigarettes per day: 0 - Social History Usual Living Arrangement: With Spouse ADL: Independent 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, 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 History of Recent Travel: No Home Medications - Allergies Allergies/Adverse Reactions: Allergies Allergy/AdvReac Type Severity Reaction Status Date / Time No Known Allergies Allergy Verified 01/01/18 12:36 - Home Medications Home Medications: Ambulatory Orders Metoprolol Tartrate [Lopressor] 50 mg PO BID 05/03/11 Atorvastatin Ca [Lipitor] 10 mg PO HS #60 tablet 02/06/17 Dabigatran Etexilate Mesylate [Pradaxa -] 150 mg PO BID 10/08/17 Aspirin [ASA -] 81 mg PO DAILY 01/01/18 Pantoprazole Sodium [Protonix -] 40 mg PO BID 01/01/18 Furosemide [Lasix] 40 mg PO DAILY #30 tablet 01/02/18 Family Disease History - Family Disease History Family Disease History: CA: Mother (pancreatic cancer), Sister (ovarian cancer) , Daughter ( ovarian cancer), Other: Father (?) Review of Systems - Review of Systems Constitutional: reports: Weakness Eyes: reports: No Symptoms HENT: reports: No Symptoms Neck: reports: No Symptoms Cardiovascular: reports: Chest Pain, Shortness of Breath Respiratory: reports: Exercise Intolerance, SOB, SOB on Exertion Gastrointestinal: reports: No Symptoms Genitourinary: reports: No Symptoms Musculoskeletal: reports: No Symptoms Integumentary: reports: No Symptoms Neurological: reports: No Symptoms Endocrine: reports: No Symptoms Vital Signs: Vital Signs Temperature 98.2 F 01/02/18 10:00 Pulse Rate 72 01/02/18 10:00 Respiratory Rate 20 01/02/18 10:00 Blood Pressure 136/94 01/02/18 10:00 O2 Sat by Pulse Oximetry (%) 95 01/01/18 19:21 Constitutional: Yes: No Distress, Calm Neck: Yes: Supple Respiratory: Yes: Regular, Diminished, On Nasal O2 Gastrointestinal: Yes: Normal Bowel Sounds, Soft, Abdomen, Obese Cardiovascular: Yes: Bradycardia, Pulse Irregular JVD: No Carotid Bruit: No Heart Sounds: Yes: S1, S2 Murmur: Yes: Systolic Murmur, Grade 1 Edema: No - Other Data Labs, Other Data: CBC, BMP 01/02/18 06:00 01/02/18 06:00 INR, PTT INR 1.33 (0.83-1.09) H 01/01/18 12:34 Troponin, BNP 01/01/18 01/01/18 01/01/18 12:34 16:40 20:37 Troponin I 0.11 H 0.11 H 0.11 H B-Natriuretic Peptide 1215.6 H Troponin, BNP 01/01/18 01/01/18 01/01/18 12:34 16:40 20:37 Troponin I 0.11 H 0.11 H 0.11 H B-Natriuretic Peptide 1215.6 H Afib @ 63 RBBB Tele: Slow afib 30s-40s overnight Prior Cardiac Procedures: Cardiac Catheterization Ejection Fraction %: LVEF > or = 40 % Imaging - Results Chest X-ray: Report Reviewed (Mild CHF) Problem List - Problems (1) Chest pain Code(s): R07.9 - CHEST PAIN, UNSPECIFIED Qualifiers: Chest pain type: unspecified Qualified Code(s): R07.9 - Chest pain, unspecified (2) Afib Code(s): I48.91 - UNSPECIFIED ATRIAL FIBRILLATION Qualifiers: Atrial fibrillation type: persistent Qualified Code(s): I48.1 - Persistent atrial fibrillation (3) Bradycardia Code(s): R00.1 - BRADYCARDIA, UNSPECIFIED (4) CAD (coronary artery disease) Code(s): I25.10 - ATHSCL HEART DISEASE OF [place] CORONARY ARTERY W/O ANG PCTRS Qualifiers: Coronary Disease-Associated Artery/Lesion type: [place] artery [place] vs. transplanted heart: [place] heart Associated angina: without angina Qualified Code(s): I25.10 - Atherosclerotic heart disease of [place] coronary artery without angina pectoris (5) Demand ischemia Code(s): I24.8 - OTHER FORMS OF ACUTE ISCHEMIC HEART DISEASE (6) Esophagitis determined by endoscopy Code(s): K20.9 - ESOPHAGITIS, UNSPECIFIED (7) Gastric bypass status for obesity Code(s): Z98.84 - BARIATRIC SURGERY STATUS (8) HTN (hypertension) Code(s): I10 - ESSENTIAL (PRIMARY) HYPERTENSION Qualifiers: Hypertension type: essential hypertension Qualified Code(s): I10 - Essential (primary) hypertension (9) Hypercholesteremia Code(s): E78.0 - PURE HYPERCHOLESTEROLEMIA * DO NOT USE * (10) Obstructive sleep apnea hypopnea, severe Code(s): G47.33 - OBSTRUCTIVE SLEEP APNEA (ADULT) (PEDIATRIC) Assessment/Plan 05/02/2016 Echo: Severe TERA, normal LV size and fxn without sig valve abnl 10/09/2016 ETT-Myoview: No ischemia LVEF 68% 01/07/2017 R&LHC: Single vessel CAD mid 50%, 70% small distal LAD, severe pulm HTN 66/16/36, PCWP 23 1. Chest pain syndrome with h/o 2. Gastrointestinal bleed with microcytic anemia, suspect moderately severe reflux esophagitis with sliding hiatal hernia 3. 1 vessel CAD angina pectoris with evidence of demand ischemic injury 3. Acute on chronic diastolic heart failure 4. Persistent atrial fibrillation with slow ventricular response on NOAC 5. History of lacunar infarct 6. Hypertensive cardiovascular disease 7. Hyperlipidemia 8. OSAS off CPAP, awaiting new machine 9. Morbid obesity post gastric bypass surgery P: 1. IV diuresis with monitor diuretic response, renal function and electrolytes, trops plateaued 2. Decrease Lopressor 25 bid, Lipitor 10 qhs, Pradaxa 150 bid, Protonix 40 bid, d/c ASA 81 qd as CAD is stable 3. Avoid NSAIDs, emphasize compliance 4. Thank you for consultative opportunity
[2018-01-02] MEDS ORDERED: FUROSEMIDE 40 MG/4 ML INJECTABLE VIAL IVPUSH SCH (12:25)
[2018-01-02] MEDS ORDERED: METOPROLOL TARTRATE 50 MG TABLET (FP) PO SCH (13:45)
[2018-01-02] MEDS ORDERED: FUROSEMIDE 40 MG/4 ML INJECTABLE VIAL IVPUSH ONE (14:00)
--- NOTE | 2018-01-02 14:37 | DS ---
Physical Examination Vital Signs: Vital Signs Temperature 98.2 F 01/02/18 10:00 Pulse Rate 72 01/02/18 10:00 Respiratory Rate 20 01/02/18 10:00 Blood Pressure 136/94 01/02/18 10:00 O2 Sat by Pulse Oximetry (%) 95 01/01/18 19:21 Labs: CBC, BMP 01/02/18 06:00 01/02/18 06:00 Discharge Summary Reason For Visit: ELEVATED TROPONIN I LEVEL, CHEST PAIN Current Active Problems Chest pain (Acute) Hospital Course: see history and physical Condition: Stable - Instructions Referrals: David Jain [Staff Physician] - Karlos Rose MD [Primary Care Provider] - Disposition: HOME - Home Medications Comprehensive Discharge Medication List: Ambulatory Orders RX: Atorvastatin Ca [Lipitor] 10 mg PO HS #60 tablet 02/06/17 RX: Dabigatran Etexilate Mesylate [Pradaxa -] 150 mg PO BID 10/08/17 RX: Pantoprazole Sodium [Protonix -] 40 mg PO BID 01/01/18 Furosemide [Lasix] 40 mg PO DAILY #30 tablet 01/02/18 RX: Metoprolol Tartrate [Lopressor -] 25 mg PO BID #60 tablet 01/02/18
[2018-01-02] MEDS: ATORVASTATIN CA 10 MG TABLET (FP) PO SCH (21:44)
[2018-01-02] MEDS: METOPROLOL TARTRATE 25 MG TABLET (FP) PO SCH (21:44)
[2018-01-02] MEDS ORDERED: MAGNESIUM OXIDE 400 MG TABLET (FP) PO ONE (21:57)
--- NOTE | 2018-01-02 22:07 | EKG ---
Test Reason : Blood Pressure : / mmHG Vent. Rate : 063 BPM Atrial Rate : 074 BPM P-R Int : 000 ms QRS Dur : 132 ms QT Int : 466 ms P-R-T Axes : 000 014 010 degrees QTc Int : 476 ms ATRIAL FIBRILLATION RIGHT BUNDLE BRANCH BLOCK ABNORMAL ECG WHEN COMPARED WITH ECG OF 08-OCT-2017 17:19, NO SIGNIFICANT CHANGE WAS FOUND Confirmed by ARTURO ROBLES MD ([id number]) on 01/02/2018 10:06:42 PM Referred By: Confirmed By:ARTURO ROBLES MD
--- NOTE | 2018-01-03 09:06 | PN ---
Progress Note, Physician History of Present Illness: SOB, chest pain, fatigue improving with diuresis, BP elevated. - Current Medication List Current Medications: Active Medications Atorvastatin Calcium (Lipitor -) 10 mg PO HS [facility] Last Admin: 01/02/18 21:44 Dose: 10 mg Dabigatran (Pradaxa -) 150 mg PO BID [facility] Last Admin: 01/02/18 21:44 Dose: 150 mg Furosemide (Lasix Injection -) 40 mg IVPUSH DAILY [facility] Metoprolol Tartrate (Lopressor -) 25 mg PO BID [facility] Last Admin: 01/02/18 21:44 Dose: 25 mg Pantoprazole Sodium (Protonix -) 40 mg PO BID [facility] Last Admin: 01/02/18 21:44 Dose: 40 mg - Objective Vital Signs: Vital Signs Temperature 98.2 F 01/03/18 05:37 Pulse Rate 77 01/03/18 05:37 Respiratory Rate 18 01/03/18 05:37 Blood Pressure 177/95 H 01/03/18 05:37 O2 Sat by Pulse Oximetry (%) 98 01/03/18 00:08 Constitutional: Yes: No Distress, Calm Neck: Yes: Supple Cardiovascular: Yes: Regular Rate and Rhythm Respiratory: Yes: Regular, Diminished, On Nasal O2 Gastrointestinal: Yes: Normal Bowel Sounds, Soft, Abdomen, Obese Edema: Yes Edema: LLE: Trace, RLE: Trace Labs: CBC, BMP 01/02/18 06:00 01/02/18 06:00 INR, PTT INR 1.33 (0.83-1.09) H 01/01/18 12:34 - ....Imaging EKG: Report Reviewed (Tele: NSR) Problem List - Problems (1) Chest pain Code(s): R07.9 - CHEST PAIN, UNSPECIFIED Qualifiers: Chest pain type: unspecified Qualified Code(s): R07.9 - Chest pain, unspecified (2) Afib Code(s): I48.91 - UNSPECIFIED ATRIAL FIBRILLATION Qualifiers: Atrial fibrillation type: persistent Qualified Code(s): I48.1 - Persistent atrial fibrillation (3) Bradycardia Code(s): R00.1 - BRADYCARDIA, UNSPECIFIED (4) CAD (coronary artery disease) Code(s): I25.10 - ATHSCL HEART DISEASE OF [place] CORONARY ARTERY W/O ANG PCTRS Qualifiers: Coronary Disease-Associated Artery/Lesion type: [place] artery [place] vs. transplanted heart: [place] heart Associated angina: without angina Qualified Code(s): I25.10 - Atherosclerotic heart disease of [place] coronary artery without angina pectoris (5) Demand ischemia Code(s): I24.8 - OTHER FORMS OF ACUTE ISCHEMIC HEART DISEASE (6) Esophagitis determined by endoscopy Code(s): K20.9 - ESOPHAGITIS, UNSPECIFIED (7) Gastric bypass status for obesity Code(s): Z98.84 - BARIATRIC SURGERY STATUS (8) HTN (hypertension) Code(s): I10 - ESSENTIAL (PRIMARY) HYPERTENSION Qualifiers: Hypertension type: essential hypertension Qualified Code(s): I10 - Essential (primary) hypertension (9) Hypercholesteremia Code(s): E78.0 - PURE HYPERCHOLESTEROLEMIA * DO NOT USE * (10) Obstructive sleep apnea hypopnea, severe Code(s): G47.33 - OBSTRUCTIVE SLEEP APNEA (ADULT) (PEDIATRIC) (11) Acute on chronic diastolic heart failure Code(s): I50.33 - ACUTE ON CHRONIC DIASTOLIC (CONGESTIVE) HEART FAILURE Assessment/Plan 05/02/2016 Echo: Severe TERA, normal LV size and fxn without sig valve abnl 10/09/2016 ETT-Myoview: No ischemia LVEF 68% 01/07/2017 R&LHC: Single vessel CAD mid 50%, 70% small distal LAD, severe pulm HTN 66/16/36, PCWP 23 1. Chest pain syndrome with h/o 2. Gastrointestinal bleed with microcytic anemia, suspect moderately severe reflux esophagitis with sliding hiatal hernia 3. 1 vessel CAD angina pectoris with evidence of demand ischemic injury 3. Acute on chronic diastolic heart failure improving 4. Persistent atrial fibrillation with slow ventricular response on NOAC 5. History of lacunar infarct 6. Hypertensive cardiovascular disease, BP control not at goal 7. Hyperlipidemia 8. OSAS off CPAP, awaiting new machine 9. Morbid obesity post gastric bypass surgery P: 1. Resume oral diuresis with monitor diuretic response, renal function and electrolytes, trops plateaued 2. Added Cozaar 50 qd, continue Lopressor 25 bid, Lipitor 10 qhs, Pradaxa 150 bid, Protonix 40 bid, d/c ASA 81 qd as CAD is stable 3. Avoid NSAIDs, emphasize compliance
[2018-01-03] MEDS: PANTOPRAZOLE 40 MG TABLET (FP) PO SCH ×2 (09:07→21:00)
[2018-01-03] MEDS: DABIGATRAN ETEXILATE MESYLATE 150 MG CAPSULE PO SCH ×2 (09:07→21:00)
[2018-01-03] MEDS: METOPROLOL TARTRATE 25 MG TABLET (FP) PO SCH ×2 (09:07→21:00)
[2018-01-03] MEDS: LOSARTAN POTASSIUM 50 MG TABLET (FP) PO SCH (09:45)
--- NOTE | 2018-01-03 12:50 | PN ---
Progress Note (short form) - Note Progress Note: pt seen/ examined chart reviewed sitting in chair feels better cardiology f/u noted Vital Signs Temp 97.8 F 01/03/18 10:00 Pulse 94 H 01/03/18 10:00 Resp 18 01/03/18 10:00 BP 126/68 01/03/18 10:00 Pulse Ox 89 L 01/03/18 08:08 Intake & Output 01/02/18 01/03/18 01/03/18 23:59 11:59 23:59 Intake Total 620 350 Output Total 1700 Balance -1080 350 Weight 272 lb Intake: Oral 620 350 Output: Urine 1700 Void 1700 Other: Voiding Method Toilet Urinal # Unmeasured Voids Void 3 2 Weight Measurement Method Standing Scale Active Medications Atorvastatin Calcium (Lipitor -) 10 mg PO HS [facility] Last Admin: 01/02/18 21:44 Dose: 10 mg Dabigatran (Pradaxa -) 150 mg PO BID [facility] Last Admin: 01/03/18 09:07 Dose: 150 mg Furosemide (Lasix Injection -) 40 mg IVPUSH DAILY [facility] Last Admin: 01/03/18 09:07 Dose: 40 mg Losartan Potassium (Cozaar -) 50 mg PO DAILY [facility] Last Admin: 01/03/18 09:45 Dose: 50 mg Metoprolol Tartrate (Lopressor -) 25 mg PO BID [facility] Last Admin: 01/03/18 09:07 Dose: 25 mg Pantoprazole Sodium (Protonix -) 40 mg PO BID [facility] Last Admin: 01/03/18 09:07 Dose: 40 mg CBC, BMP 01/02/18 06:00 01/02/18 06:00 Physical Examination Constitutional: Yes: No Distress. morbidly obese. Cardiovascular: Yes: Regular Rate and Rhythm, Murmur Respiratory: Yes: Diminished at bases Gastrointestinal: Yes: Normal Bowel Sounds, Soft, Abdomen, Obese. No: Tenderness Edema: Yes Edema: LLE: Trace Neuro- Ao x 3 Imaging - Results Chest X-ray: Image Reviewed (mild congestion) EKG: Image Reviewed (AFib) Problem List - Problems (1) Chest pain Code(s): R07.9 - CHEST PAIN, UNSPECIFIED Qualifiers: Chest pain type: unspecified Qualified Code(s): R07.9 - Chest pain, unspecified (2) Abdominal pain Code(s): R10.9 - UNSPECIFIED ABDOMINAL PAIN Qualifiers: Abdominal location: epigastric Qualified Code(s): R10.13 - Epigastric pain (3) Afib Code(s): I48.91 - UNSPECIFIED ATRIAL FIBRILLATION Qualifiers: Atrial fibrillation type: persistent Qualified Code(s): I48.1 - Persistent atrial fibrillation (4) CAD (coronary artery disease) Code(s): I25.10 - ATHSCL HEART DISEASE OF [place] CORONARY ARTERY W/O ANG PCTRS Qualifiers: Coronary Disease-Associated Artery/Lesion type: [place] artery [place] vs. transplanted heart: [place] heart Associated angina: without angina Qualified Code(s): I25.10 - Atherosclerotic heart disease of [place] coronary artery without angina pectoris Assessment/Plan Overall better daily weigh continue i/v lasix continue other meds Not cleared for d/c today by testing manager will follow discussed with pt also as well as with nursing staff.
[2018-01-03 17:00] VITALS: BMI 43.9
[2018-01-03] MEDS ORDERED: PT OWN MED DRAWER 7, Y5N ONE (20:59)
[2018-01-03] MEDS: ATORVASTATIN CA 10 MG TABLET (FP) PO SCH (21:00)
--- NOTE | 2018-01-04 09:25 | PN ---
Progress Note (short form) - Note Progress Note: Chief Complaint: Events noted, notes reviewed, patient denies any chest discomfort or dyspnea, atrial fibrillation persists with periods of rapid ventricular response and bradycardia pauses although less than 5 seconds, mostly during sleep/sleep apnea History of Present Illness: Seen and examined on telemetry. Events noted, notes reviewed, patient denies any chest discomfort or dyspnea, atrial fibrillation persists with periods of rapid ventricular response and bradycardia pauses although less than 5 seconds, mostly during sleep/sleep apnea 05/02/2016 Echo: Severe TERA, normal LV size and fxn without significant valve abnormality 10/09/2016 ETT-Myoview: No ischemia with LVEF 68% 01/07/2017 R&LHC: Single vessel CAD mid 50%, 70% small distal LAD, severe pulm HTN , PCWP 23 - Current Medication List Current Medications Atorvastatin Calcium (Lipitor -) 10 mg PO HS [facility] Last Admin: 01/03/18 21:00 Dose: 10 mg Dabigatran (Pradaxa -) 150 mg PO BID [facility] Last Admin: 01/03/18 21:00 Dose: 150 mg Furosemide (Lasix -) 40 mg PO DAILY [facility] Losartan Potassium (Cozaar -) 50 mg PO DAILY [facility] Last Admin: 01/03/18 09:45 Dose: 50 mg Metoprolol Tartrate (Lopressor -) 25 mg PO BID [facility] Last Admin: 01/03/18 21:00 Dose: 25 mg Pantoprazole Sodium (Protonix -) 40 mg PO BID [facility] Last Admin: 01/03/18 21:00 Dose: 40 mg Review of Systems Constitutional: denies: Chills, Fever Cardiovascular: As Noted Above Respiratory: denies: Cough or Sputum Production Gastrointestinal: denies: Nausea, Vomiting, Constipation or Abdominal Pain Genitourinary: denies: Dysuria Musculoskeletal: No Symptoms Reported Neurological: denies: Dizziness, Headache - Objective Vital Signs: Last Vital Signs Temp Pulse Resp BP Pulse Ox 98.0 F 85 20 146/99 94 L 01/04/18 06:00 01/04/18 06:00 01/04/18 06:00 01/04/18 06:00 01/03/18 20:30 Intake & Output 01/01/18 01/02/18 01/03/18 01/04/18 23:59 23:59 23:59 23:59 Intake Total 1000 850 Output Total 1700 1300 Balance -700 -450 Weight 277 lb 6.4 oz 272 lb 271 lb 2 oz Neck: Supple negative JVD no bruit appreciated Cardiovascular: S1-S2 irregularly irregular grade 2/6 systolic apical murmur Respiratory: Diminished breath sounds at the bases Gastrointestinal: soft benign Normal Bowel Sounds Ext: No edema Labs: CBC, BMP 01/02/18 06:00 01/02/18 06:00 Assessment/Plan ASSESSMENT: 1. Chest pain syndrome, resolved 2. CAD angina pectoris with evidence of demand ischemic injury 3. Acute on chronic diastolic left ventricular dysfunction with class I-II [place] [employer] classification left ventricular failure, resolved 4. Persistent atrial fibrillation [id number] score of 5 on A/C, periods of rapid ventricular response and bradycardia as outlined above 5. History of lacunar infarct 6. Hypertensive cardiovascular disease 7. Hyperlipidemia 8. OSAS on CPAP 9. History of gastrointestinal bleed, [place] lesion post intervention 10. Morbid obesity post gastric bypass surgery 11. Anemia PLAN: 1. Continue Pradaxa with caution and close monitoring of CBC, maintain Hg equal or > 8.0 2. Continue Lopressor titrate dosage 3. Continue Losartan titrate dosage 4. Continue Atorvastatin 5. Ambulate and D/C as per the primary team, followup in the office with Dr. Pelon Jane M.D.
[2018-01-04] MEDS ORDERED: PT OWN MED DRAWER 7, Y5N ONE (09:52)
[2018-01-04] MEDS ORDERED: FUROSEMIDE 40 MG TABLET (FP) PO SCH (10:00)
[2018-01-04] MEDS: LOSARTAN POTASSIUM 50 MG TABLET (FP) PO SCH (10:12)
[2018-01-04] MEDS: METOPROLOL TARTRATE 25 MG TABLET (FP) PO SCH (10:12)
[2018-01-04] MEDS: PANTOPRAZOLE 40 MG TABLET (FP) PO SCH (10:12)
[2018-01-04] MEDS: DABIGATRAN ETEXILATE MESYLATE 150 MG CAPSULE PO SCH (10:12)
--- NOTE | 2018-01-04 13:38 | DS ---
Physical Examination Vital Signs: Vital Signs Temperature 98.0 F 01/04/18 10:00 Pulse Rate 90 01/04/18 10:00 Respiratory Rate 20 01/04/18 10:00 Blood Pressure 146/78 01/04/18 10:00 O2 Sat by Pulse Oximetry (%) 90 L 01/04/18 10:00 Constitutional: Yes: No Distress Cardiovascular: Yes: Regular Rate and Rhythm, Murmur Respiratory: Yes: Diminished Gastrointestinal: Yes: Normal Bowel Sounds, Soft, Abdomen, Obese. No: Tenderness Edema: No Labs: CBC, BMP 01/02/18 06:00 01/02/18 06:00 Discharge Summary Reason For Visit: ELEVATED TROPONIN I LEVEL, CHEST PAIN Current Active Problems Acute on chronic diastolic heart failure (Acute) Chest pain (Acute) Hospital Course: admitted for chest/epigastric discomfort had CHF exacerbation was on lasix Seen by Cardiology pt had episode of NSVT Advised to oncrease metoprolol pt better stable for discharge Condition: Stable - Instructions Referrals: David Jain [Staff Physician] - Karlos Rose MD [Primary Care Provider] - Disposition: HOME - Home Medications Comprehensive Discharge Medication List: Ambulatory Orders Atorvastatin Ca [Lipitor] 10 mg PO HS #60 tablet 02/06/17 Dabigatran Etexilate Mesylate [Pradaxa -] 150 mg PO BID 10/08/17 Pantoprazole Sodium [Protonix -] 40 mg PO BID 01/01/18 Furosemide [Lasix] 40 mg PO DAILY #30 tablet 01/02/18 Losartan Potassium [Cozaar -] 50 mg PO BID #60 tablet 01/04/18 Metoprolol Tartrate [Lopressor -] 50 mg PO TID #90 tablet 01/04/18
[2018-01-04] MEDS ORDERED: METOPROLOL TARTRATE 50 MG TABLET (FP) PO SCH (14:00)
[2018-01-04 14:37] VITALS: BP 146/79; PULSE 85; TEMP 97.6
[2018-01-04] MEDS ORDERED: LOSARTAN POTASSIUM 50 MG TABLET (FP) PO SCH (22:00)
== END 2018-01-04 15:12 | disposition home or self-care (01) | DRG 292 ==
LOC: JER 12:22 → JERBED 14:18 → J4S 21:02 → OBSVTOIN 01-03 14:57
PROVIDERS: ADMIT Internal Medicine; ATTEND Internal Medicine
DX: I11.0 Hypertensive heart disease with heart failure (principal); I48.1 Persistent atrial fibrillation; I47.1 Supraventricular tachycardia; I24.8 Other forms of acute ischemic heart disease; Z68.41 Body mass index [BMI] 40.0-44.9, adult; R07.89 Other chest pain; I50.33 Acute on chronic diastolic (congestive) heart failure; R10.9 Unspecified abdominal pain; I25.119 Atherosclerotic heart disease of native coronary artery with unspecified angina pectoris; E78.5 Hyperlipidemia, unspecified; G47.33 Obstructive sleep apnea (adult) (pediatric); D64.9 Anemia, unspecified; E66.01 Morbid (severe) obesity due to excess calories; R00.1 Bradycardia, unspecified
CPT/HCPCS: 36415; 71045-TC-FY; 80053; 80061; 81003; 81015; 82272; 82550; 82553; 83721; 83735; 83880; 84100; 84484; 85025; 85610; 93005; 93010; 99284-25; G0378

== ENCOUNTER 2018-03-07 09:52 | Emergency (ER) | payer OTHER ==
[2018-03-07 10:31] VITALS: BP 175/85; PULSE 80; TEMP 97.9; BMI 43.0
--- NOTE | 2018-03-07 11:34 | PDOC ---
History of Present Illness - General Chief Complaint: Back Pain Stated Complaint: LEFT LOWER BACK PAIN Time Seen by Provider: 03/07/18 10:59 History Source: Patient Exam Limitations: No Limitations - History of Present Illness Occurred: reports: other (many years ) Past History - Past Medical History Allergies/Adverse Reactions: Allergies Allergy/AdvReac Type Severity Reaction Status Date / Time No Known Allergies Allergy Verified 03/07/18 10:28 Home Medications: Ambulatory Orders Atorvastatin Ca [Lipitor] 10 mg PO HS #60 tablet 02/06/17 Dabigatran Etexilate Mesylate [Pradaxa -] 150 mg PO BID 10/08/17 Pantoprazole Sodium [Protonix -] 40 mg PO BID 01/01/18 Furosemide [Lasix] 40 mg PO DAILY #30 tablet 01/02/18 Losartan Potassium [Cozaar -] 50 mg PO BID #60 tablet 01/04/18 Metoprolol Tartrate [Lopressor -] 50 mg PO TID #90 tablet 01/04/18 Acetaminophen W/ Codeine #3 [Tylenol # 3] 1 combo PO Q4H PRN #10 tablet MDD 4 Anemia: No Asthma: No Cancer: No Cardiac Disorders: Yes (AFIB) CVA: No COPD: No CHF: No Dementia: No Diabetes: No GI Disorders: Yes (gastric bypass) Disorders: No HTN: Yes Hypercholesterolemia: Yes Kidney Stones: Yes Liver Disease: No Seizures: No Thyroid Disease: No - Surgical History Abdominal Surgery: Yes (GASTRIC BYPASS) Appendectomy: No Cardiac Surgery: No Cholecystectomy: No Lung Surgery: No Neurologic Surgery: No Orthopedic Surgery: Yes (FX (L) ANKLE) - Suicide/Smoking/Psychosocial Hx Smoking Status: No Smoking History: Never smoked Have you smoked in the past 12 months: No Number of Cigarettes Smoked Daily: 0 Hx Alcohol Use: Yes Drug/Substance Use Hx: No Substance Use Type: None Hx Substance Use Treatment: No *Physical Exam - Vital Signs Last Vital Signs Temp Pulse Resp BP Pulse Ox 97.9 F 80 18 175/85 H 98 03/07/18 10:28 03/07/18 10:28 03/07/18 10:28 03/07/18 10:28 03/07/18 10:28 - Physical Exam General Appearance: Yes: Nourished, Appropriately Dressed, Apparent Distress HEENT: positive: YEFRI, Normal ENT Inspection, TMs Normal, Tonsillar Exudate Neck: positive: Supple, Lymphadenopathy (R), Lymphadenopathy (L). negative: Tender Respiratory/Chest: positive: Lungs Clear Musculoskeletal: positive: Normal Inspection, Muscle Spasm (Tight tender musculature to paravertebral spinous muscles, no bony tenderness crepitus or step-offs. Range of motion is limited secondary to this mild spasm. Walks slowly but without limp area neurovascular intact to foot). negative: CVA Tenderness Extremity: positive: Normal Capillary Refill, Normal Inspection, Normal Range of Motion Integumentary: positive: Normal Color, Dry, Warm Neurologic: positive: abstract maker II-XII NML intact, Fully Oriented, Alert, Normal Mood/ Affect Moderate Sedation - Procedure Monitoring Vital Signs: Procedure Monitoring Vital Signs Temperature 97.9 F 03/07/18 10:28 Pulse Rate 80 03/07/18 10:28 Respiratory Rate 18 03/07/18 10:28 Blood Pressure 175/85 H 03/07/18 10:28 O2 Sat by Pulse Oximetry (%) 98 03/07/18 10:28 *DC/Admit/Observation/Transfer Diagnosis at time of Disposition: Acute exacerbation of chronic low back pain - Discharge Dispostion Disposition: HOME Condition at time of disposition: Stable Decision to Admit order: No - Prescriptions Prescriptions: Acetaminophen W/ Codeine #3 [Tylenol # 3] 1 combo PO Q4H PRN #10 tablet MDD 4 PRN Reason: Pain - Referrals Referrals: Juan Miguel Islas [Primary Care Provider] - - Patient Instructions Printed Discharge Instructions: DI for Back Strain or Sprain Additional Instructions: Rest, no heavy lifting or exercise until pain is resolved Hot soaks to neck and low back as often as possible/hot showers or Jacuzzis No massage or therapy until spasm is gone Continue Tylenol No. 3, one or 2 tablets for severe pain but remember may make constipated CAll your private physician to make appointment for reevaluation, with suggestions for possible physical therapy, other medication trials, referrals. If not significant improvement within 24 hours with medication and rest regime, followup with private physician for change in medications and /or therapy. - Post Discharge Activity Forms/Work/School Notes: Back to Work
[2018-03-07] MEDS ORDERED: ACETAMINOPHEN WITH CODEINE 300MG/30MG TABLET PO STA (11:35)
[2018-03-07] MEDS ORDERED: ACETAMINOPHEN WITH CODEINE 300MG/30MG TABLET ONE (11:38)
== END 2018-03-07 11:48 | disposition home or self-care (01) ==
LOC: JERFT 09:52
DX: M54.5 Low back pain (principal); I48.91 Unspecified atrial fibrillation; Z79.01 Long term (current) use of anticoagulants; I10 Essential (primary) hypertension; E78.00 Pure hypercholesterolemia, unspecified; Z98.84 Bariatric surgery status
CPT/HCPCS: 99281-25

== ENCOUNTER 2018-03-14 09:22 | Emergency (ER) | payer OTHER ==
[2018-03-14 09:32] VITALS: BP 119/86; PULSE 66; TEMP 98.5; BMI 43.0
--- NOTE | 2018-03-14 10:05 | PDOC ---
Attending Attestation - Resident Resident Name: CallumabdoulCarlos - ED Attending Attestation I have performed the following: I have examined & evaluated the patient, The case was reviewed & discussed with the resident, I agree w/resident's findings & plan, Exceptions are as noted - HPI HPI: 03/14/18 10:01 67y hx of Afib (on pradaxa) presents with back pain x 1 month. Pain is left sided, located on the left buttock, radinating down his left leg, and occasional numbness/tingling that varies depending on his position. The patient denies any fever/chills, urinary or bowel incontinence, melena, bpr. Ptwife mentiones some sob. Pt taking tylenol 3 with improvement of his pain but pain returns. Pain is worse when he is sitting on it, also worsnes when he is cold. in triage pt endorsed some sob - but pt notes it is constant, unchanged, and usually worse when someone is smoking next to him. denies any recent sob, cp , diaphoresis, lighteahdedness, palpitations. on exam general: no acute distress msk: reproducible tenderness to the L buttock no weakness, no sacral sensation intact sensation intact throughout no midline bony tenderness abd: no abd tenderness, no rebound/guarding, no cva tenderness pt feeling improved with flexeril suspect msk pain, likely scitacia no redflags for compresssion position of pain inconsistent with intrabdominal process or kidney stones will have pt take tylenol, felxeril and fu with PMD return precautions were discussed - Physicial Exam PE: 03/15/18 08:20 see abo e - Medical Decision Making 03/15/18 08:20 see aobve Heart Score/ECG Review - ECG Impressions Comment:: 03/14/18 11:30 Twelve-lead EKG was performed and reviewed by me. rage of 61 irregular[address] wave chnges
[2018-03-14] MEDS ORDERED: CYCLOBENZAPRINE HCL 10 MG TABLET (FP) PO ONE ×2 (10:06)
[2018-03-14] MEDS ORDERED: CYCLOBENZAPRINE HCL 10 MG TABLET (FP) ONE (10:08)
--- NOTE | 2018-03-14 10:54 | PDOC ---
History of Present Illness - General Chief Complaint: Shortness of Breath Stated Complaint: BACK PAIN Time Seen by Provider: 03/14/18 09:35 History Source: Patient Exam Limitations: No Limitations - History of Present Illness Initial Comments: 03/14/18 10:46 The patient is a 67M with a PMH of Afib (Pradaxa, on samples currently), GI Bleed (required transfusion over the past year), HTN, HLD, CAD s/p cath last year (per patient "they checked my heart through my wrist"), TIA, Sleep Apnea ( not on CPAP,but currently being ordered), severe obesity s/p gastric bypass 15 yrs ago (has since gained back all of his pre-surgery weight because of dietary non-compliance), and anxiety who presents to the ER with complaints of back pain. The patient states that he's had 5+ weeks of atraumatic L sided low back pain which is constant, worsened by walking and with pressure, radiating down his L leg associated with occasional numbness but no weakness or tingling. He denies any fever, chills, bowel/bladder incontinence, and saddle anesthesia. He admits to trying motrin, tylenol, and tylenol 3 for pain relief with little to no help. Past History - Past Medical History Allergies/Adverse Reactions: Allergies Allergy/AdvReac Type Severity Reaction Status Date / Time No Known Allergies Allergy Verified 03/07/18 10:28 Home Medications: Ambulatory Orders Atorvastatin Ca [Lipitor] 10 mg PO HS #60 tablet 02/06/17 Dabigatran Etexilate Mesylate [Pradaxa -] 150 mg PO BID 10/08/17 Pantoprazole Sodium [Protonix -] 40 mg PO BID 01/01/18 Furosemide [Lasix] 40 mg PO DAILY #30 tablet 01/02/18 Losartan Potassium [Cozaar -] 50 mg PO BID #60 tablet 01/04/18 Metoprolol Tartrate [Lopressor -] 50 mg PO TID #90 tablet 01/04/18 Acetaminophen W/ Codeine #3 [Tylenol # 3] 1 combo PO Q4H PRN #10 tablet MDD 4 Cyclobenzaprine HCl [Flexeril -] 10 mg PO HS #10 tablet 03/14/18 Anemia: No Asthma: No Cancer: No Cardiac Disorders: Yes (AFIB) CVA: No COPD: No CHF: No Dementia: No Diabetes: No GI Disorders: Yes (gastric bypass) Disorders: No HTN: Yes Hypercholesterolemia: Yes Kidney Stones: Yes Liver Disease: No Seizures: No Thyroid Disease: No - Surgical History Abdominal Surgery: Yes (GASTRIC BYPASS) Appendectomy: No Cardiac Surgery: No Cholecystectomy: No Lung Surgery: No Neurologic Surgery: No Orthopedic Surgery: Yes (FX (L) ANKLE) - Suicide/Smoking/Psychosocial Hx Smoking Status: No Smoking History: Unknown if ever smoked Have you smoked in the past 12 months: No Number of Cigarettes Smoked Daily: 0 Hx Alcohol Use: No Drug/Substance Use Hx: No Substance Use Type: None Hx Substance Use Treatment: No Review of Systems - Review of Systems Able to Perform ROS?: Yes Comments:: 03/14/18 10:55 GENERAL/CONSTITUTIONAL: No fever or chills. No weakness. HEAD, EYES, EARS, NOSE AND THROAT: No change in vision. No ear pain or discharge. No sore throat. CARDIOVASCULAR: No chest pain, palpitations, or lightheadedness. RESPIRATORY: No cough, wheezing, shortness of breath, or hemoptysis. GASTROINTESTINAL: No nausea, vomiting, diarrhea, constipation, or abdominal pain. GENITOURINARY: No dysuria, frequency, hematuria, or change in urination. MUSCULOSKELETAL: Positive for low back pain. No joint or muscle swelling or pain. No neck pain. SKIN: No rash or lesions. NEUROLOGIC: Positive for numbness in L leg. No headache, tingling, focal weakness, loss of consciousness, or change in strength/sensation. ENDOCRINE: No increased thirst. No abnormal weight change. HEMATOLOGIC/LYMPHATIC: Positive for easy bleeding. No anemia, or history of blood clots. ALLERGIC/IMMUNOLOGIC: No hives or skin allergy. Is the patient limited Congolese proficient: No *Physical Exam - Vital Signs Last Vital Signs Temp Pulse Resp BP Pulse Ox 98.5 F 66 16 119/86 100 03/14/18 09:25 03/14/18 09:25 03/14/18 09:25 03/14/18 09:25 03/14/18 09:25 - Physical Exam Comments: 03/14/18 10:56 GENERAL: Well developed, well nourished. Awake and alert. No acute distress. HEENT: Normocephalic, atraumatic. Hearing grossly normal. Moist mucous membranes. PERRLA, EOMI. No conjunctival pallor. Sclera are non-icteric. NECK: Supple. Full ROM. No JVD. Carotid pulses 2+ and symmetric, without bruits. No thyromegaly. No lymphadenopathy. CARDIOVASCULAR: Regular rate and rhythm. No murmurs, rubs, or gallops. Distal pulses are 2+ and symmetric. PULMONARY: No evidence of respiratory distress. Lungs clear to auscultation bilaterally. No wheezing, rales or rhonchi. ABDOMINAL: Soft. Non-tender. Non-distended. No rebound or guarding. GENITOURINARY: No CVA tenderness bilaterally. MUSCULOSKELETAL: TTP over L pirifromis muscle. +SLR. Normal range of motion at all joints. No bony deformities or tenderness. EXTREMITIES: No cyanosis. No clubbing. No edema. No calf tenderness or swelling. SKIN: Warm and dry. Normal capillary refill. No rashes. No jaundice. NEUROLOGICAL: Alert, awake, appropriate. Cranial nerves 2-12 grossly intact. Neurovascularly intact in b/l LE. Normal speech. Gait is normal without ataxia. PSYCHIATRIC: Cooperative. Good eye contact. Appropriate mood and affect. Moderate Sedation - Procedure Monitoring Vital Signs: Procedure Monitoring Vital Signs Temperature 98.5 F 03/14/18 09:25 Pulse Rate 66 03/14/18 09:25 Respiratory Rate 16 03/14/18 09:25 Blood Pressure 119/86 03/14/18 09:25 O2 Sat by Pulse Oximetry (%) 100 03/14/18 09:25 ED Treatment Course - Medications Given in the ED: ED Medications Discontinued Medications Generic Name Dose Route Start Last Admin Trade Name Samiq PRN Reason Stop Dose Admin Cyclobenzaprine HCl 10 mg 03/14/18 10:06 03/14/18 10:09 Flexeril - PO 03/14/18 10:07 10 mg ONCE ONE Administration Medical Decision Making - Medical Decision Making 03/14/18 10:01 The patient is a 67M with MMP who presents to the ER with complaints of low back pain which is subacute, atraumatic, without any red flags. No XR or imaging is indicated at this time. Pt has no midline spinal tenderness. Will give flexeril and reassess. Triage document noted, pt denies any SOB on my questioning. 03/14/18 10:58 Pt states he feels much better. Will d/c with flexeril and PCP f/u. *DC/Admit/Observation/Transfer Diagnosis at time of Disposition: Low back pain Qualifiers: Chronicity: chronic Back pain laterality: left Sciatica presence: with sciatica Sciatica laterality: sciatica of left side Qualified Code(s): M54.42 - Lumbago with sciatica, left side - Discharge Dispostion Disposition: HOME Condition at time of disposition: Stable Decision to Admit order: No - Prescriptions Prescriptions: Cyclobenzaprine HCl [Flexeril -] 10 mg PO HS #10 tablet - Referrals Referrals: Karlos Rose MD [Staff Physician] - - Patient Instructions Printed Discharge Instructions: DI for Low Back Pain Additional Instructions: Please follow up with your primary care physician in 2-3 days. Please return to the ER if you have any signs or symptoms of chest pain, shortness of breath, uncontrollable fever, chills, nausea, vomiting, numbness, tingling, or weakness in any part of your body, changes in vision, or slurred speech. Please take your medications as prescribed. Please return to the ER if symptoms persist, worsen, or new symptoms arise. - Post Discharge Activity
--- NOTE | 2018-03-14 13:34 | EKG ---
Test Reason : Blood Pressure : / mmHG Vent. Rate : 061 BPM Atrial Rate : 104 BPM P-R Int : 000 ms QRS Dur : 134 ms QT Int : 446 ms P-R-T Axes : 000 015 046 degrees QTc Int : 448 ms ATRIAL FIBRILLATION RIGHT BUNDLE BRANCH BLOCK ABNORMAL ECG WHEN COMPARED WITH ECG OF 01-JAN-2018 12:24, NONSPECIFIC T WAVE ABNORMALITY NOW EVIDENT IN LATERAL LEADS Confirmed by TREVER FRANKLIN, RAGHAV ([id number]) on 03/14/2018 1:33:59 PM Referred By: Confirmed By:RAGHAV PERERA MD
== END 2018-03-14 11:55 | disposition home or self-care (01) ==
LOC: JER 09:22
DX: M54.42 Lumbago with sciatica, left side (principal); E66.9 Obesity, unspecified; Z98.84 Bariatric surgery status; I48.91 Unspecified atrial fibrillation; I10 Essential (primary) hypertension; E78.00 Pure hypercholesterolemia, unspecified
CPT/HCPCS: 93005; 93010; 99283-25

== ENCOUNTER 2019-01-14 06:01 | Inpatient (IN) | payer OTHER ==
[2019-01-14] MEDS ORDERED: FUROSEMIDE 40 MG/4 ML INJECTABLE VIAL IVPUSH ONE ×2 (08:21→14:00)
[2019-01-14 08:26] LABS: BASO % 1.1 % (0-2.0); EOS % 1.7 % (0-4.5); HEMATOCRIT 36.9 % (35.4-49); HEMOGLOBIN 11.9 GM/dL (11.7-16.9); LYMPH % 25.8 % (8-40); MCH 29.8 pg (25.7-33.7); MCHC 32.1 g/dl (32.0-35.9); MEAN CELL VOLUME 92.8 fl (80-96); MONO % 12.2 % (3.8-10.2); NEUT % 59.2 % (42.8-82.8); PLATELET COUNT 231 K/MM3 (134-434); RBC 3.98 M/mm3 (4.00-5.60); RDW 16.5 % (11.9-15.9); WHITE BLOOD COUNT 3.9 K/mm3 (4.0-10.0)
[2019-01-14] MEDS ORDERED: FUROSEMIDE 40 MG/4 ML INJECTABLE VIAL ONE ×2 (08:27→15:17)
[2019-01-14 08:36] LABS: INR 1.23 (0.83-1.09); PROTHROMBIN TIME (PATIENT) 14.6 SEC (9.7-13.0)
[2019-01-14 08:43] LABS: ALBUMIN 3.9 g/dl (3.4-5.0); BILIRUBIN,TOTAL 0.7 mg/dL (0.2-1); BLOOD UREA NITROGEN 22.6 mg/dL (7-18); CALCIUM 8.4 mg/dL (8.5-10.1); CREATININE 1.1 mg/dL (0.55-1.3); N-TERMINAL BNP 1167.2 pg/ml (5-125); POTASSIUM 5.6 mmol/L (3.5-5.1); TOT PROT 7.5 g/dl (6.4-8.2)
--- NOTE | 2019-01-14 10:07 | PDOC ---
Documentation entered by Negrita Rowell SCRIBE, acting as scribe for Ruperto Devries MD. Ruperto Devries MD: This documentation has been prepared by the Lelia storm Sammi, SCRIBE, under my direction and personally reviewed by me in its entirety. I confirm that the documentation accurately reflects all work, treatment, procedures, and medical decision making performed by me. History of Present Illness - General Chief Complaint: Edema Stated Complaint: GENERALIZED SWELLING Time Seen by Provider: 01/14/19 07:24 - History of Present Illness Initial Comments: 01/14/19 07:53 The patient is a 68 year old male who presents to the emergency department for evaluation of worsening SOB and pleuritic chest discomfort since his CPAP machine broke 3 days ago. He states he is not on home oxygen. Denies weight gain. Denies increased lower extremity edema. PMH: sleep apnea, abdominal hernia Surgical history: gastric bypass Past History - Past Medical History Allergies/Adverse Reactions: Allergies Allergy/AdvReac Type Severity Reaction Status Date / Time No Known Allergies Allergy Verified 01/14/19 06:23 Home Medications: Ambulatory Orders Atorvastatin Ca [Lipitor] 10 mg PO HS #60 tablet 02/06/17 Dabigatran Etexilate Mesylate [Pradaxa -] 150 mg PO BID 10/08/17 Pantoprazole Sodium [Protonix -] 40 mg PO BID 01/01/18 Furosemide [Lasix] 40 mg PO DAILY #30 tablet 01/02/18 Losartan Potassium [Cozaar -] 50 mg PO BID #60 tablet 01/04/18 Metoprolol Tartrate [Lopressor -] 50 mg PO TID #90 tablet 01/04/18 Cyclobenzaprine HCl [Flexeril -] 10 mg PO HS #10 tablet 03/14/18 Anemia: No Asthma: No Cancer: No Cardiac Disorders: Yes (AFIB) CVA: No COPD: No CHF: No Dementia: No Diabetes: No GI Disorders: Yes (gastric bypass) Disorders: No HTN: Yes Hypercholesterolemia: Yes Kidney Stones: Yes Liver Disease: No Seizures: No Thyroid Disease: No - Surgical History Abdominal Surgery: Yes (GASTRIC BYPASS) Appendectomy: No Cardiac Surgery: No Cholecystectomy: No Lung Surgery: No Neurologic Surgery: No Orthopedic Surgery: Yes (FX (L) ANKLE) - Psycho Social/Smoking Cessation Hx Smoking Status: No Smoking History: Never smoked Have you smoked in the past 12 months: No Number of Cigarettes Smoked Daily: 0 Hx Alcohol Use: No Drug/Substance Use Hx: No Substance Use Type: None Hx Substance Use Treatment: No Review of Systems - Review of Systems Comments:: 01/14/19 07:55 CONSTITUTIONAL: No fever, no chills, no fatigue CARDIOVASCULAR: +pleuritic chest discomfort. no palpitations RESPIRATORY: + shortness of breath. No cough. GI: No abdominal pain, no nausea, no vomiting, no constipation, no diarrhea GENITOURINARY: No dysuria, no frequency, no hematuria MUSKULOSKELETAL: No backpain, no joint pain, no myalgias SKIN: No rash NEURO: No headache *Physical Exam - Vital Signs Last Vital Signs Temp Pulse Resp BP Pulse Ox 98.8 F 67 24 H 199/89 H 100 01/14/19 06:05 01/14/19 06:15 01/14/19 06:05 01/14/19 06:05 01/14/19 06:15 - Physical Exam Comments: 01/14/19 08:12 CONSTITUTIONAL: +mildly dyspneic. Awake, alert, morbidly obese. ENMT: External appears normal; normal oropharynx NECK: No JVD. Supple; non-tender; no cervical lymphadenopathy CARD: Normal S1, S2; no murmurs, rubs, or gallops RESP: +distant breath sounds bilaterally ue to bodily heaviness. ABD: +ventral hernia easily reducible. Soft, non-distended; non-tender; no palpable organomegaly. EXT: +Sacral and lower extremity edema bilaterally. Normal ROM in all four extremities; non-tender to palpation; distal pulses intact SKIN: Warm, dry, no rash NEURO: No focal neurological deficiencies. Heart Score/ECG Review - ECG Impressions Comment:: 01/14/19 07:58 atrial fibrillation with premature ventricular or aberrantly conducted complexes right bundle branch block abnormal ECG ED Treatment Course - LABORATORY CBC & Chemistry Diagram: 01/14/19 08:00 01/14/19 08:00 - ADDITIONAL ORDERS Additional order review: Laboratory Results 01/14/19 01/14/19 01/14/19 08:00 08:00 08:00 PT with INR 14.60 H INR 1.23 H Sodium 140 Potassium 5.6 H Chloride 105 Carbon Dioxide 30 Anion Gap 4 L BUN 22.6 H Creatinine 1.1 Est GFR (CKD-EPI)AfAm 80.08 Est GFR (CKD-EPI)NonAf 69.10 Random Glucose 91 Calcium 8.4 L Total Bilirubin 0.7 AST 30 ALT 29 Alkaline Phosphatase 79 Creatine Kinase 258 Creatine Kinase Index 2.0 CK-MB (CK-2) 5.3 H Troponin I 0.09 H B-Natriuretic Peptide 1167.2 H Total Protein 7.5 Albumin 3.9 01/14/19 08:00 RBC 3.98 L MCV 92.8 MCHC 32.1 RDW 16.5 H MPV 9.0 Neutrophils % 59.2 Lymphocytes % 25.8 D Monocytes % 12.2 H Eosinophils % 1.7 Basophils % 1.1 - RADIOLOGY Radiology Studies Ordered: Category Date Time Status CHEST X-RAY PORTABLE* [RAD] Stat Radiology 01/14/19 07:39 Completed - Medications Given in the ED: ED Medications Discontinued Medications Generic Name Dose Route Start Last Admin Trade Name Freq PRN Reason Stop Dose Admin Furosemide 40 mg 01/14/19 08:21 01/14/19 08:42 Lasix Injection - IVPUSH 01/14/19 08:22 40 mg ONCE ONE Administration Discharge - Discharge Information Problems reviewed: Yes Clinical Impression/Diagnosis: 2+ pitting edema Acute exacerbation of congestive heart failure Qualifiers: Heart failure type: unspecified Qualified Code(s): I50.9 - Heart failure, unspecified Condition: Fair - Admission Yes - Follow up/Referral Referrals: Juan Miguel Islas [Primary Care Provider] - - Patient Discharge Instructions - Post Discharge Activity
--- NOTE | 2019-01-14 11:01 | EKG ---
Test Reason : Blood Pressure : / mmHG Vent. Rate : 076 BPM Atrial Rate : 059 BPM P-R Int : 000 ms QRS Dur : 132 ms QT Int : 444 ms P-R-T Axes : 000 064 033 degrees QTc Int : 499 ms ATRIAL FIBRILLATION WITH PREMATURE VENTRICULAR OR ABERRANTLY CONDUCTED COMPLEXES RIGHT BUNDLE BRANCH BLOCK ABNORMAL ECG WHEN COMPARED WITH ECG OF 14-MAR-2018 11:03, NONSPECIFIC T WAVE ABNORMALITY NO LONGER EVIDENT IN LATERAL LEADS Confirmed by RAGHAV PERERA MD ([id number]) on 01/14/2019 11:01:08 AM Referred By: Confirmed By:RAGHAV PERERA MD
[2019-01-14] MEDS ORDERED: METOPROLOL TARTRATE 50 MG TABLET (FP) PO SCH (11:15)
--- NOTE | 2019-01-14 11:15 | HP ---
CHIEF COMPLAINT: shortness of breath PCP: Dr. Charles Sage HISTORY OF PRESENT ILLNESS: Patient is a 68 y/o male with a history afib ( on pradaxa), GI bleed last year, HTN, HLD, CAD, TIA, obestiy, sleep apnea, HFpEF who presents for shortness of breath. Patient typically uses CPAP at night but it has been broken for 3 days. Patient reports his shortness of breath has been worsening and is worse when he lays flat. Patient is prescribed lasix but has not taken it in 3 weeks. he reports he was never told how to take it. He takes his other medications as prescribed. He denies increase in his po intake for food or water, denies any recent sick contacts. Patient denies fever, chills, chest pain, nausea, or vomiting. ER course was notable for: (1) (2) (3) Recent Travel: PAST MEDICAL HISTORY: afib ( on pradaxa), GI bleed last year, HTN, HLD, CAD, TIA , obestiy, sleep apnea, HFpEF PAST SURGICAL HISTORY: gastric bypass Social History: Smoking: never Alcohol: weekly Drugs: denies Allergies No Known Allergies Allergy (Verified 01/14/19 06:23) HOME MEDICATIONS: Home Medications Medication Instructions Recorded Dabigatran Etexilate Mesylate 150 mg PO DAILY 10/08/17 [Pradaxa -] Pantoprazole Sodium [Protonix -] 40 mg PO DAILY 01/01/18 Atorvastatin Ca [Lipitor] 10 mg PO DAILY 01/14/19 Furosemide [Lasix] 40 mg PO DAILY 01/14/19 Losartan Potassium [Cozaar -] 50 mg PO DAILY 01/14/19 Metoprolol Tartrate [Lopressor -] 100 mg PO DAILY 01/14/19 REVIEW OF SYSTEMS CONSTITUTIONAL: Absent: fever, chills, diaphoresis, generalized weakness, malaise, loss of appetite, weight change HEENT: Absent: rhinorrhea, nasal congestion, throat pain, throat swelling, difficulty swallowing, mouth swelling, ear pain, eye pain, visual changes CARDIOVASCULAR: Absent: chest pain, syncope, palpitations, irregular heart rate, lightheadedness , peripheral edema RESPIRATORY: shortness of breath Absent: cough,, dyspnea with exertion, orthopnea, wheezing, stridor, hemoptysis GASTROINTESTINAL: Absent: abdominal pain, abdominal distension, nausea, vomiting, diarrhea, constipation, melena, hematochezia GENITOURINARY: Absent: dysuria, frequency, urgency, hesitancy, hematuria, flank pain, genital pain MUSCULOSKELETAL: Absent: myalgia, arthralgia, joint swelling, back pain, neck pain SKIN: Absent: rash, itching, pallor HEMATOLOGIC/IMMUNOLOGIC: Absent: easy bleeding, easy bruising, lymphadenopathy, frequent infections ENDOCRINE: Absent: unexplained weight gain, unexplained weight loss, heat intolerance, cold intolerance NEUROLOGIC: Absent: headache, focal weakness or paresthesias, dizziness, unsteady gait, seizure, mental status changes, bladder or bowel incontinence PSYCHIATRIC: Absent: anxiety, depression, suicidal or homicidal ideation, hallucinations. PHYSICAL EXAMINATION Vital Signs - 24 hr 01/14/19 01/14/19 01/14/19 06:05 06:15 07:30 Temperature 98.8 F 97.4 F L Pulse Rate 100 H 67 Pulse Rate [ 102 H Radial] Respiratory 24 H 22 H Rate Blood Pressure 199/89 H Blood Pressure 177/99 H [Right Arm] O2 Sat by Pulse 93 L 100 94 L Oximetry (%) GENERAL: Awake, alert, and fully oriented, in no acute distress. Morbidly obese EYES: Pupils equal, round and reactive to light, extraocular movements intact, EARS, NOSE, THROAT: Moist mucous membranes. NECK: mild JVD LUNGS: mild tachypnia, no crackles heard at bases, distant breath sounds HEART: irregularly irregular ABDOMEN: Soft, nontender, not distended, normoactive bowel sounds, no guarding, no rebound, no masses. LOWER EXTREMITIES: 2+ pulses, warm, well-perfused. No calf tenderness. 2+ pitting edema NEUROLOGICAL: gait normal SKIN: Warm, dry, normal turgor, no rashes or lesions noted, normal capillary refill. CBC, BMP 01/14/19 08:00 01/14/19 08:00 ASSESSMENT/PLAN: Patient is a 68 y/o male with a history afib ( on pradaxa), GI bleed last year, HTN, HLD, CAD, TIA, obestiy, sleep apnea, HFpEF who is admitted for CHF exacerbation. #CHF exacerbation , preserved ejection fraction - 40 IV lasix given once, repeat at 6 pm - 40 IV daily - monitor daily weights - monitor I's and O's - fluid restriction to 1.5 - f.u cardio - continue to monitor trops - repeat echo #HTN - continue metoprolol - hold losartan #YOSELIN - CPAP prn at night #Afib - hr controlled, continue metorprol #morbid obesity - f/u nutrition consult - patient has a hx of gastric bypass, discuss healthy eating habits #dvt PPX - continue pradaxa FEN -hold losartan in setting of hyperkalemia - f.u repeat potassium @ 2 Dispo: monitor on tele Visit type - Emergency Visit Emergency Visit: Yes ED Registration Date: 01/14/19 Care time: The patient presented to the Emergency Department on the above date and was hospitalized for further evaluation of their emergent condition. - New Patient This patient is new to me today: Yes Date on this admission: 01/15/19 - Critical Care Critical Care patient: No ATTENDING PHYSICIAN STATEMENT I saw and evaluated the patient. I reviewed the resident's note and discussed the case with the resident. I agree with the resident's findings and plan as documented. SUBJECTIVE: OBJECTIVE: ASSESSMENT AND PLAN:
[2019-01-14] MEDS ORDERED: METOPROLOL TARTRATE 50 MG TABLET (FP) ONE (12:13)
--- NOTE | 2019-01-14 13:25 | CON.CARD ---
Consult Consult Specialty:: Cardiology Referred by:: Hospitalist Medicine Reason for Consultation:: Dyspnea, LE edema - History of Present Illness Chief Complaint: Dyspnea History of Present Illness: 68 yo man with H/O HTN, Chol, ASHD, Afib on Pradaxa, OSAS on cpap, h/o gastric bypass, UGI bleed 02/15 referable to [place] lesion post endoclipping and tattooing, lacunar infarct, HFpEF presented with shortness of breath. Patient typically uses CPAP at night but it has been broken for 3 days. Patient reports his shortness of breath has been worsening and is worse when he lays flat. Patient was prescribed lasix but has not taken it in 3 weeks. he reports he was never told how to take it. He takes his other medications as prescribed. He admits to salt intake, denies NSAID use. Last office visit 05/08/2017. - History Source History Provided By: Patient Limitations to Obtaining History: No Limitations - Past Medical History [employer]: Yes: CVA Cardio/Vascular: Yes: AFIB, CAD, HTN, Hyperlipdemia Pulmonary: Yes: Sleep Apnea (on cpap) Gastrointestinal: Yes: GI Bleed (gastrc body Dieulafoy erosions endoclipped .), Other (bariatric gastric bypass, hyperplastic rectal polyp removed 02/15) Renal/: Yes: Renal Calculi Psych: Yes: Anxiety Endocrine: Yes: Other (Morbid obesity) - Past Surgical History Past Surgical History: Yes: Bariatric Surgery (Gastric bypass at [facility]) - Alcohol/Substance Use Hx Alcohol Use: No History of Substance Use: reports: None - Smoking History Smoking history: Never smoked Have you smoked in the past 12 months: No Aproximately how many cigarettes per day: 0 - Social History Usual Living Arrangement: With Spouse ADL: Independent 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, 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 History of Recent Travel: No Home Medications - Allergies Allergies/Adverse Reactions: Allergies Allergy/AdvReac Type Severity Reaction Status Date / Time No Known Allergies Allergy Verified 01/14/19 06:23 - Home Medications Home Medications: Ambulatory Orders Dabigatran Etexilate Mesylate [Pradaxa -] 150 mg PO DAILY 10/08/17 Pantoprazole Sodium [Protonix -] 40 mg PO DAILY 01/01/18 Atorvastatin Ca [Lipitor] 10 mg PO DAILY 01/14/19 Furosemide [Lasix] 40 mg PO DAILY 01/14/19 Losartan Potassium [Cozaar -] 50 mg PO DAILY 01/14/19 Metoprolol Tartrate [Lopressor -] 100 mg PO DAILY 01/14/19 Review of Systems - Review of Systems Cardiovascular: reports: Shortness of Breath Respiratory: reports: Exercise Intolerance, Orthopnea, SOB, SOB on Exertion Vital Signs: Vital Signs Temperature 97.4 F L 01/14/19 07:30 Pulse Rate 104 H 01/14/19 12:00 Respiratory Rate 20 01/14/19 12:00 Blood Pressure 158/92 01/14/19 12:00 O2 Sat by Pulse Oximetry (%) 93 L 01/14/19 12:00 Constitutional: Yes: No Distress, Calm Neck: Yes: Supple Respiratory: Yes: Regular, Diminished Gastrointestinal: Yes: Normal Bowel Sounds, Soft, Abdomen, Obese Cardiovascular: Yes: Pulse Irregular JVD: No Carotid Bruit: No Heart Sounds: Yes: S1, S2 Murmur: Yes: Systolic Murmur, Grade 1 Edema: Yes Edema: LLE: 2+, RLE: 2+ - Other Data Labs, Other Data: CBC, BMP 01/14/19 08:00 01/14/19 08:00 INR, PTT INR 1.23 (0.83-1.09) H 01/14/19 08:00 Troponin, BNP 01/14/19 01/14/19 08:00 08:00 Troponin I 0.09 H B-Natriuretic Peptide 1167.2 H Troponin, BNP 01/14/19 01/14/19 08:00 08:00 Troponin I 0.09 H B-Natriuretic Peptide 1167.2 H Afib @ 76 RBBB Ejection Fraction %: LVEF > or = 40 % Imaging - Results Chest X-ray: Report Reviewed (Congestion) Problem List - Problems (1) Subendocardial ischemia Code(s): I24.8 - OTHER FORMS OF ACUTE ISCHEMIC HEART DISEASE (2) Acute on chronic diastolic heart failure Code(s): I50.33 - ACUTE ON CHRONIC DIASTOLIC (CONGESTIVE) HEART FAILURE (3) Afib Code(s): I48.91 - UNSPECIFIED ATRIAL FIBRILLATION Qualifiers: Atrial fibrillation type: longstanding persistent Qualified Code(s): I48.11 - Longstanding persistent atrial fibrillation (4) CAD (coronary artery disease) Code(s): I25.10 - ATHSCL HEART DISEASE OF [place] CORONARY ARTERY W/O ANG PCTRS Qualifiers: Coronary Disease-Associated Artery/Lesion type: [place] artery [place] vs. transplanted heart: [place] heart Associated angina: without angina Qualified Code(s): I25.10 - Atherosclerotic heart disease of [place] coronary artery without angina pectoris (5) HTN (hypertension) Code(s): I10 - ESSENTIAL (PRIMARY) HYPERTENSION Qualifiers: Hypertension type: essential hypertension Qualified Code(s): I10 - Essential (primary) hypertension (6) Hypercholesteremia Code(s): E78.0 - PURE HYPERCHOLESTEROLEMIA * DO NOT USE * (7) Obstructive sleep apnea hypopnea, severe Code(s): G47.33 - OBSTRUCTIVE SLEEP APNEA (ADULT) (PEDIATRIC) Assessment/Plan 01/15/2019 Echo: Normal LV and RV size and fxn, mild TERA, mild TR RVSP 40-50 mmHg, mild MG 14.4 mmHg, MADY 1.3 cm^2, MR 05/02/2016 Echo: Severe TERA, normal LV size and fxn without sig valve abnl 10/09/2016 ETT-Myoview: No ischemia LVEF 68% 01/07/2017 R&LHC: Single vessel CAD mid 50%, 70% small distal LAD, severe pulm HTN 66/16/36, PCWP 23 1. Acute on chronic diastolic heart failure with pulm HTN improving 2. Persistent atrial fibrillation on NOAC 3. 1 vessel CAD angina pectoris with evidence of demand ischemic injury. 4. History of lacunar infarct 6. Hypertensive cardiovascular disease, BP control not at goal 7. Hyperlipidemia 8. OSAS off CPAP, awaiting new machine 9. Morbid obesity post gastric bypass surgery 10. Gastrointestinal bleed with microcytic anemia, suspect moderately severe reflux esophagitis with sliding hiatal hernia P: 1. IV diuresis with monitor diuretic response, renal function and electrolytes, trops downtrending 2. Continue Cozaar 50 qd, Lopressor 50 bid, Lipitor 10 qhs, Pradaxa 150 bid, Protonix 40 bid 3. Avoid NSAIDs, emphasize diet and medication compliance 4. Thank you for consultative opportunity, eventual follow-up in the office with Dr. Pelon Hill
--- NOTE | 2019-01-14 13:51 | ECHO ---
Name: MINNIE LEONACIO Exam:Adult Echocardiogram Study Date: 01/14/2019 12:30 PM Age: 68 yrs Reason For Study: CHF Height: 66 in Weight: 295 lb BSA: 2.4 m2 MMode/2D Measurements & Calculations IVSd: 1.1 cm Ao root diam: 2.7 cm LVIDd: 4.8 cm LA dimension: 4.2 cm LVIDs: 3.4 cm LVPWd: 1.2 cm EDV(Teich): 105.5 ml LVOT diam: 2.0 cm ESV(Teich): 47.7 ml LAV (MOD-bp): 87.6 ml Doppler Measurements & Calculations MV E max nicho: 152.0 cm/sec MVA(VTI): 2.3 cm2 MV A max nicho: 91.2 cm/sec MV V2 max: 168.3 cm/sec MV E/A: 1.7 MV max P.3 mmHg MV dec time: 0.12 sec MV V2 mean: 91.3 cm/sec MV mean P.1 mmHg MV V2 VTI: 30.8 cm Ao V2 max: 266.0 cm/sec LV V1 max P.6 mmHg Ao max P.3 mmHg LV V1 mean P.2 mmHg Ao V2 mean: 175.6 cm/sec LV V1 max: 94.9 cm/sec Ao mean P.4 mmHg LV V1 mean: 69.8 cm/sec Ao V2 VTI: 55.6 cm LV V1 VTI: 22.6 cm MADY(I,D): 1.3 cm2 MADY(V,D): 1.1 cm2 MR max nicho: 355.6 cm/sec SV(LVOT): 70.2 ml MR max P.6 mmHg TR max nicho: 305.4 cm/sec PA V2 max: 120.8 cm/sec TR max P.3 mmHg PA max P.8 mmHg PI Vmax: 107.2 cm/sec Procedure The study was technically difficult with many images being suboptimal in quality. Left Ventricle The left ventricle is grossly normal size. The left ventricular ejection fraction is normal. Regional wall motion abnormalities cannot be excluded due to limited visualization. Right Ventricle The right ventricle is not well visualized. Atria The left atrium is mildly dilated. The right atrium is mildly dilated. Mitral Valve The mitral valve is not well visualized. There is no mitral valve stenosis. There is mild mitral regurgitation. Tricuspid Valve The tricuspid valve is not well visualized. There is no tricuspid stenosis. There is mild tricuspid regurgitation. Right ventricular systolic pressure is elevated at 40-50mmHg. Aortic Valve The aortic valve is not well visualized. Mild valvular aortic stenosis. No aortic regurgitation is pr esent. Pulmonic Valve The pulmonic valve is not well visualized. Great Vessels The aortic root is normal size. Pericardium/Pleura There is no pericardial effusion. Interpretation Summary The study was technically difficult with many images being suboptimal in quality. The left ventricle is grossly normal size. The left atrium is mildly dilated. The right atrium is mildly dilated. There is mild tricuspid regurgitation. Right ventricular systolic pressure is elevated at 40-50mmHg. Mild valvular aortic stenosis. The left ventricular ejection fraction is normal. Regional wall motion abnormalities cannot be excluded due to limited visualization. There is mild mitral regurgitation. MD Ranjith Clinton 01/14/2019 01:51 PM
[2019-01-14 14:26] LABS: POTASSIUM 4.7 mmol/L (3.5-5.1)
--- NOTE | 2019-01-14 15:47 | PN ---
Teaching Attending Note Name of Resident: Emilie Dunham ATTENDING PHYSICIAN STATEMENT I saw and evaluated the patient. I reviewed the resident's note and discussed the case with the resident. I agree with the resident's findings and plan as documented with exceptions below. 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 Reports his CPAP broke 3 days ago, also has been non compliant with lasix and low salt diet. Comes with progressive shortness of breath, leg swelling, weight gain, orthopnea, PND. no fevers, chills, chest pain , palpitations, abdominal or urinary symptoms. Reports feeling better after receiving lasix in the Ed and has urinated a lot. OBJECTIVE: Vital Signs Period Temp Pulse Resp BP Sys/Ewing Pulse Ox Last 24 Hr 97.4 F-98.8 F 61-104 18-24 139-199/67-99 93-100 Intake & Output 01/11/19 01/12/19 01/13/19 01/14/19 23:59 23:59 23:59 23:59 Weight 295 lb GENERAL: Awake, alert,tachypnea and some use of accessory muscles of respiration HEAD: Normal with no signs of trauma. EYES: Pupils equal, round and reactive to light, extraocular movements intact, sclera anicteric, conjunctiva clear. No lid lag. EARS, NOSE, THROAT: Ears normal, nares patent, oropharynx clear without exudates. Moist mucous membranes. NECK: Normal range of motion, supple , no JVD visualized but limited exam given body habitus LUNGS: scattered rhonchi, pos air entry, few bibasilar fine rales HEART: S1S2 irregularly irregular, tachycardic ABDOMEN: Soft, obese, NT, MUSCULOSKELETAL: Normal range of motion at all joints. No bony deformities or tenderness. No CVA tenderness. UPPER EXTREMITIES: 2+ pulses, warm, well-perfused. No cyanosis. No clubbing. No peripheral edema. LOWER EXTREMITIES: 2+ pedal pitting edema NEUROLOGICAL: AAOx3, facial symmetry, EOMI, PERRL, Cranial nerves II-XII intact. Normal speech. Gait not observed PSYCHIATRIC: Cooperative. Good eye contact. Appropriate mood and affect. SKIN: Warm, dry, normal turgor, no rashes or lesions noted, normal capillary refill. Home Medications Medication Instructions Recorded Dabigatran Etexilate Mesylate 150 mg PO DAILY 10/08/17 [Pradaxa -] Pantoprazole Sodium [Protonix -] 40 mg PO DAILY 01/01/18 Atorvastatin Ca [Lipitor] 10 mg PO DAILY 01/14/19 Furosemide [Lasix] 40 mg PO DAILY 01/14/19 Losartan Potassium [Cozaar -] 50 mg PO DAILY 01/14/19 Metoprolol Tartrate [Lopressor -] 100 mg PO DAILY 01/14/19 Active Medications Atorvastatin Calcium (Lipitor -) 10 mg PO HS VALERIE Dabigatran (Pradaxa -) 150 mg PO BID VALERIE Furosemide (Lasix Injection -) 40 mg IVPUSH DAILY VALERIE Metoprolol Tartrate (Lopressor -) 50 mg PO BID VALERIE Pantoprazole Sodium (Protonix -) 40 mg PO DAILY [facility] Laboratory Results - last 24 hr 01/14/19 01/14/19 01/14/19 08:00 08:00 08:00 WBC 3.9 L RBC 3.98 L Hgb 11.9 Hct 36.9 MCV 92.8 MCH 29.8 D MCHC 32.1 RDW 16.5 H Plt Count 231 MPV 9.0 Absolute Neuts (auto) 2.3 Neutrophils % 59.2 Lymphocytes % 25.8 D Monocytes % 12.2 H Eosinophils % 1.7 Basophils % 1.1 Nucleated RBC % 0 PT with INR INR Sodium 140 Potassium 5.6 H Chloride 105 Carbon Dioxide 30 Anion Gap 4 L BUN 22.6 H Creatinine 1.1 Est GFR (CKD-EPI)AfAm 80.08 Est GFR (CKD-EPI)NonAf 69.10 Random Glucose 91 Calcium 8.4 L Total Bilirubin 0.7 AST 30 ALT 29 Alkaline Phosphatase 79 Creatine Kinase 258 Creatine Kinase Index 2.0 CK-MB (CK-2) 5.3 H Troponin I 0.09 H B-Natriuretic Peptide 1167.2 H Total Protein 7.5 Albumin 3.9 01/14/19 01/14/19 08:00 13:49 WBC RBC Hgb Hct MCV MCH MCHC RDW Plt Count MPV Absolute Neuts (auto) Neutrophils % Lymphocytes % Monocytes % Eosinophils % Basophils % Nucleated RBC % PT with INR 14.60 H INR 1.23 H Sodium Potassium 4.7 Chloride Carbon Dioxide Anion Gap BUN Creatinine Est GFR (CKD-EPI)AfAm Est GFR (CKD-EPI)NonAf Random Glucose Calcium Total Bilirubin AST ALT Alkaline Phosphatase Creatine Kinase Creatine Kinase Index CK-MB (CK-2) Troponin I 0.08 H B-Natriuretic Peptide Total Protein Albumin CXr results and images reviewed ASSESSMENT AND PLAN: 68 yom with PMHX of HFpEF, Afib on pradaxa, Gi bleed (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 Cardiology input. 2D echo noted. NIPPV hs and prn. Continue metoprolol/pradaxa/statin Check lipid panel. Will need home oxygen assessment prior to dc Dispo admit to inpatient telemetry Plan discussed with patient, all questions answered Total admit time 65 min.
[2019-01-14] MEDS ORDERED: PT OWN MED DRAWER 7, Y5N ONE ×4 (21:32→23:41)
[2019-01-14] MEDS: DABIGATRAN ETEXILATE MESYLATE 150 MG CAPSULE PO SCH (23:44)
[2019-01-15] MEDS ORDERED: MELATONIN 5 MG TABLETS PO ONE (00:03)
[2019-01-15] MEDS: FUROSEMIDE 40 MG/4 ML INJECTABLE VIAL IVPUSH SCH ×2 (05:34→14:41)
[2019-01-15 07:07] LABS: HEMATOCRIT 36.6 % (35.4-49); MCH 29.8 pg (25.7-33.7); MCHC 32.7 g/dl (32.0-35.9); MEAN CELL VOLUME 91.2 fl (80-96); MEAN PLT VOLUME 8.6 fl (7.5-11.1); PLATELET COUNT 236 K/MM3 (134-434); RBC 4.01 M/mm3 (4.00-5.60); RDW 16.4 % (11.9-15.9); WHITE BLOOD COUNT 4.6 K/mm3 (4.0-10.0)
[2019-01-15 07:39] LABS: BILIRUBIN,TOTAL 0.9 mg/dL (0.2-1); BLOOD UREA NITROGEN 25.6 mg/dL (7-18); CALCIUM 8.9 mg/dL (8.5-10.1); CREATININE 1.1 mg/dL (0.55-1.3); MAGNESIUM 1.8 mg/dL (1.8-2.4); PHOSPHOROUS 4.1 mg/dL (2.5-4.9); POTASSIUM 4.5 mmol/L (3.5-5.1); TOT PROT 7.4 g/dl (6.4-8.2)
--- NOTE | 2019-01-15 09:16 | PN ---
Progress Note, Physician History of Present Illness: [place] and orthopnea has resolved with diuresis, 13 lbs weight loss, feels back to baseline, has dental appliance for OSAS. - Current Medication List Current Medications: Active Medications Atorvastatin Calcium (Lipitor -) 10 mg PO HS [facility] Dabigatran (Pradaxa -) 150 mg PO BID [facility] Last Admin: 01/14/19 23:44 Dose: 150 mg Furosemide (Lasix Injection -) 40 mg IVPUSH BID@0600,1400 [facility] Last Admin: 01/15/19 05:34 Dose: 40 mg Losartan Potassium (Cozaar -) 50 mg PO DAILY [facility] Metoprolol Tartrate (Lopressor -) 50 mg PO BID [facility] Pantoprazole Sodium (Protonix -) 40 mg PO DAILY [facility] - Objective Vital Signs: Vital Signs Temperature 97.9 F 01/15/19 05:50 Pulse Rate 74 01/15/19 05:50 Respiratory Rate 18 01/15/19 05:50 Blood Pressure 117/79 01/15/19 05:50 O2 Sat by Pulse Oximetry (%) 98 01/15/19 05:00 Constitutional: Yes: No Distress, Calm Neck: Yes: Supple Cardiovascular: Yes: Pulse Irregular Respiratory: Yes: Regular, Diminished Gastrointestinal: Yes: Normal Bowel Sounds, Soft, Abdomen, Obese Edema: Yes Edema: LLE: 1+, RLE: 1+ Labs: CBC, BMP 01/15/19 06:35 01/15/19 06:35 INR, PTT INR 1.23 (0.83-1.09) H 01/14/19 08:00 - ....Imaging EKG: Report Reviewed (Tele: Afib) Problem List - Problems (1) Subendocardial ischemia Code(s): I24.8 - OTHER FORMS OF ACUTE ISCHEMIC HEART DISEASE (2) Acute on chronic diastolic heart failure Code(s): I50.33 - ACUTE ON CHRONIC DIASTOLIC (CONGESTIVE) HEART FAILURE (3) Afib Code(s): I48.91 - UNSPECIFIED ATRIAL FIBRILLATION Qualifiers: Atrial fibrillation type: longstanding persistent Qualified Code(s): I48.11 - Longstanding persistent atrial fibrillation (4) CAD (coronary artery disease) Code(s): I25.10 - ATHSCL HEART DISEASE OF [place] CORONARY ARTERY W/O ANG PCTRS Qualifiers: Coronary Disease-Associated Artery/Lesion type: [place] artery [place] vs. transplanted heart: [place] heart Associated angina: without angina Qualified Code(s): I25.10 - Atherosclerotic heart disease of [place] coronary artery without angina pectoris (5) HTN (hypertension) Code(s): I10 - ESSENTIAL (PRIMARY) HYPERTENSION Qualifiers: Hypertension type: essential hypertension Qualified Code(s): I10 - Essential (primary) hypertension (6) Hypercholesteremia Code(s): E78.0 - PURE HYPERCHOLESTEROLEMIA * DO NOT USE * (7) Obstructive sleep apnea hypopnea, severe Code(s): G47.33 - OBSTRUCTIVE SLEEP APNEA (ADULT) (PEDIATRIC) Assessment/Plan 01/15/2019 Echo: Normal LV and RV size and fxn, mild TERA, mild TR RVSP 40-50 mmHg, mild MG 14.4 mmHg, MADY 1.3 cm^2, MR 05/02/2016 Echo: Severe TERA, normal LV size and fxn without sig valve abnl 10/09/2016 ETT-Myoview: No ischemia LVEF 68% 01/07/2017 R&LHC: Single vessel CAD mid 50%, 70% small distal LAD, severe pulm HTN 66/16/36, PCWP 23 1. Acute on chronic diastolic heart failure with pulm HTN improving 2. Persistent atrial fibrillation on NOAC 3. 1 vessel CAD angina pectoris with evidence of demand ischemic injury. 4. History of lacunar infarct 6. Hypertensive cardiovascular disease, BP control improved 7. Hyperlipidemia 8. OSAS off CPAP, awaiting new machine, has dental appliance 9. Morbid obesity post gastric bypass surgery 10. Gastrointestinal bleed with microcytic anemia, suspect moderately severe reflux esophagitis with sliding hiatal hernia P: 1. Resume oral diuresis with monitor diuretic response, renal function and electrolytes, trops downtrending 2. Continue Cozaar 50 qd, Lopressor 50 bid, Lipitor 10 qhs, Pradaxa 150 bid, Protonix 40 bid 3. Avoid NSAIDs, emphasize diet and medication compliance 4. Eventual follow-up in the office with Dr. Pelon Hill
[2019-01-15] MEDS: PANTOPRAZOLE 40 MG TABLET (FP) PO SCH (09:36)
[2019-01-15] MEDS: DABIGATRAN ETEXILATE MESYLATE 150 MG CAPSULE PO SCH ×2 (09:36→21:35)
[2019-01-15] MEDS: LOSARTAN POTASSIUM 50 MG TABLET (FP) PO SCH (09:36)
[2019-01-15] MEDS: METOPROLOL TARTRATE 50 MG TABLET (FP) PO SCH ×2 (09:36→21:34)
[2019-01-15] MEDS ORDERED: FUROSEMIDE 40 MG/4 ML INJECTABLE VIAL IVPUSH SCH (10:00)
[2019-01-15 14:25] VITALS: BMI 45.5
--- NOTE | 2019-01-15 15:05 | PN ---
Teaching Attending Note Name of Resident: Alexa Clemons ATTENDING PHYSICIAN STATEMENT I saw and evaluated the patient. I reviewed the resident's note and discussed the case with the resident. I agree with the resident's findings and plan as documented with exceptions below. SUBJECTIVE: Patient seen and examined, breathing improved, urinating well, eager to go home. 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 Lasix 40 mg IV BID, strict I/Os, daily weights CHF education, Nutrition consult. Cardiology input noted. 2D echo noted. NIPPV hs and prn. Continue metoprolol/pradaxa/statin Check lipid panel. cpap hs and prn. Will need home oxygen assessment prior to dc Dispo pending improvement in volume status, discussed with patient and nursing.
--- NOTE | 2019-01-15 18:24 | PN ---
Physical Exam: SUBJECTIVE: Patient seen and examined. He reports increased urination following Lasix. He also reports SOB when bending over. He denies fever, chills, chest pain, n/v/d. OBJECTIVE: Vital Signs Period Temp Pulse Resp BP Sys/Ewing Pulse Ox Last 24 Hr 97.9 F-99.1 F 72-104 18-18 112-162/66-97 92-98 GENERAL: The patient is awake, alert, and fully oriented, in no acute distress. HEAD: Normal with no signs of trauma. EYES: PERRL, extraocular movements intact ENT: Ears normal, nares patent, moist mucous membranes. NECK: Trachea midline LUNGS: Wheezing bilaterally upper lobes HEART: Regular rate and irregular rhythm, no murmur ABDOMEN: Obese, soft, nontender, nondistended, normoactive bowel sounds EXTREMITIES: +1 pitting edema bilateral feet NEUROLOGICAL: Normal speech PSYCH: Normal mood, normal affect. SKIN: Warm, dry, normal turgor 3kg weight loss tele a-fib Laboratory Results - last 24 hr 01/14/19 01/15/19 01/15/19 19:30 06:35 06:35 WBC 4.6 RBC 4.01 Hgb 12.0 Hct 36.6 MCV 91.2 MCH 29.8 MCHC 32.7 RDW 16.4 H Plt Count 236 MPV 8.6 Sodium 138 Potassium 4.5 Chloride 100 Carbon Dioxide 32 Anion Gap 7 L BUN 25.6 H Creatinine 1.1 Est GFR (CKD-EPI)AfAm 80.08 Est GFR (CKD-EPI)NonAf 69.10 Random Glucose 105 Calcium 8.9 Phosphorus 4.1 Magnesium 1.8 Total Bilirubin 0.9 AST 22 ALT 26 Alkaline Phosphatase 78 Troponin I 0.08 H Total Protein 7.4 Albumin 4.0 Active Medications Generic Name Dose Route Start Last Admin Trade Name Freq PRN Reason Stop Dose Admin Atorvastatin Calcium 10 mg 01/15/19 22:00 Lipitor - PO HS VALERIE Dabigatran 150 mg 01/14/19 22:00 01/15/19 09:36 Pradaxa - PO 150 mg BID VALERIE Administration Furosemide 40 mg 01/15/19 06:00 01/15/19 14:41 Lasix Injection - IVPUSH 01/15/19 23:59 40 mg BID@0600,1400 VALERIE Administration Furosemide 40 mg 01/16/19 10:00 Lasix - PO DAILY VALERIE Losartan Potassium 50 mg 01/15/19 10:00 01/15/19 09:36 Cozaar - PO 50 mg DAILY VALERIE Administration Metoprolol Tartrate 50 mg 01/15/19 10:00 01/15/19 09:36 Lopressor - PO 50 mg BID VALERIE Administration Pantoprazole Sodium 40 mg 01/15/19 10:00 01/15/19 09:36 Protonix - PO 40 mg DAILY VALERIE Administration ASSESSMENT/PLAN: Mr. Rodriguez is a 68 y/o male with HFpEF, a-fib (on Pradaxa), GI bleed (2018), HTN , HLD, CAD, TIA, morbid obesity, and YOSELIN who is admitted for CHF exacerbation. #acute on chronic HFpEF, pulmonary HTN Echo: EF normal. Bilateral atrial enlargement, mild TR, elevated right ventricular pressure 40-50. 3kg weight loss. -lasix 40mg IV daily -monitor weights and I/Os -cards following -pre and post exercise test for oxygen assessment #HTN -continue metoprolol and losartan #YOSELIN -CPAP #Afib -Pradaxa #morbid obesity -counseling DVT Ppx Pradaxa FEN sodium diet Dispo: tele, d/c planned for tomorrow if volume status is improved Visit type - Emergency Visit Emergency Visit: Yes ED Registration Date: 01/14/19 Care time: The patient presented to the Emergency Department on the above date and was hospitalized for further evaluation of their emergent condition. - New Patient This patient is new to me today: Yes Date on this admission: 01/15/19 - Critical Care Critical Care patient: No - Discharge Referral Referred to [facility] Med P.C.: No ATTENDING PHYSICIAN STATEMENT I saw and evaluated the patient. I reviewed the resident's note and discussed the case with the resident. I agree with the resident's findings and plan as documented. SUBJECTIVE: OBJECTIVE: ASSESSMENT AND PLAN:
[2019-01-15] MEDS ORDERED: PT OWN MED DRAWER 7, Y5N ONE (21:11)
[2019-01-15] MEDS ORDERED: ATORVASTATIN CA 10 MG TABLET (FP) PO SCH (22:00)
[2019-01-15] MEDS ORDERED: ACETAMINOPHEN 325 MG TABLET (FP) PO ONE (23:38)
[2019-01-16] MEDS ORDERED: PT OWN MED DRAWER 7, Y5N ONE (08:45)
[2019-01-16] MEDS ORDERED: FUROSEMIDE 40 MG TABLET (FP) PO SCH (10:00)
[2019-01-16 10:30] LABS: CALCIUM 8.7 mg/dL (8.5-10.1); CREATININE 1.1 mg/dL (0.55-1.3); POTASSIUM 3.9 mmol/L (3.5-5.1)
--- NOTE | 2019-01-16 10:50 | PN ---
Progress Note, Physician History of Present Illness: SCHUM[place]ER and orthopnea has resolved with diuresis, 17 lbs weight loss, feels back to baseline, has dental appliance for OSAS, awaiting home O2. - Current Medication List Current Medications: Active Medications Atorvastatin Calcium (Lipitor -) 10 mg PO HS [facility] Last Admin: 01/15/19 21:34 Dose: 10 mg Dabigatran (Pradaxa -) 150 mg PO BID [facility] Last Admin: 01/15/19 21:35 Dose: 150 mg Furosemide (Lasix -) 40 mg PO DAILY [facility] Losartan Potassium (Cozaar -) 50 mg PO DAILY [facility] Last Admin: 01/15/19 09:36 Dose: 50 mg Metoprolol Tartrate (Lopressor -) 50 mg PO BID [facility] Last Admin: 01/15/19 21:34 Dose: 50 mg Pantoprazole Sodium (Protonix -) 40 mg PO DAILY [facility] Last Admin: 01/15/19 09:36 Dose: 40 mg - Objective Vital Signs: Vital Signs Temperature 97.7 F 01/16/19 06:00 Pulse Rate 89 01/16/19 06:00 Respiratory Rate 18 01/16/19 06:00 Blood Pressure 122/96 01/16/19 06:00 O2 Sat by Pulse Oximetry (%) 96 01/16/19 00:08 Constitutional: Yes: No Distress, Calm Neck: Yes: Supple Cardiovascular: Yes: Regular Rate and Rhythm Respiratory: Yes: Regular, Diminished Gastrointestinal: Yes: Normal Bowel Sounds, Soft, Abdomen, Obese Edema: No Labs: CBC, BMP 01/15/19 06:35 01/16/19 06:00 INR, PTT INR 1.23 (0.83-1.09) H 01/14/19 08:00 - ....Imaging EKG: Report Reviewed (Tele: Afib) Problem List - Problems (1) Subendocardial ischemia Code(s): I24.8 - OTHER FORMS OF ACUTE ISCHEMIC HEART DISEASE (2) Acute on chronic diastolic heart failure Code(s): I50.33 - ACUTE ON CHRONIC DIASTOLIC (CONGESTIVE) HEART FAILURE (3) Afib Code(s): I48.91 - UNSPECIFIED ATRIAL FIBRILLATION Qualifiers: Atrial fibrillation type: longstanding persistent Qualified Code(s): I48.11 - Longstanding persistent atrial fibrillation (4) CAD (coronary artery disease) Code(s): I25.10 - ATHSCL HEART DISEASE OF [place] CORONARY ARTERY W/O ANG PCTRS Qualifiers: Coronary Disease-Associated Artery/Lesion type: [place] artery [place] vs. transplanted heart: [place] heart Associated angina: without angina Qualified Code(s): I25.10 - Atherosclerotic heart disease of [place] coronary artery without angina pectoris (5) HTN (hypertension) Code(s): I10 - ESSENTIAL (PRIMARY) HYPERTENSION Qualifiers: Hypertension type: essential hypertension Qualified Code(s): I10 - Essential (primary) hypertension (6) Hypercholesteremia Code(s): E78.0 - PURE HYPERCHOLESTEROLEMIA * DO NOT USE * (7) Obstructive sleep apnea hypopnea, severe Code(s): G47.33 - OBSTRUCTIVE SLEEP APNEA (ADULT) (PEDIATRIC) Assessment/Plan 01/15/2019 Echo: Normal LV and RV size and fxn, mild TERA, mild TR RVSP 40-50 mmHg, mild MG 14.4 mmHg, MADY 1.3 cm^2, MR 05/02/2016 Echo: Severe TERA, normal LV size and fxn without sig valve abnl 10/09/2016 ETT-Myoview: No ischemia LVEF 68% 01/07/2017 R&LHC: Single vessel CAD mid 50%, 70% small distal LAD, severe pulm HTN 66/16/36, PCWP 23 1. Acute on chronic diastolic heart failure with pulm HTN in the setting of medication/dietary non compliance, improving 2. Persistent atrial fibrillation on NOAC 3. 1 vessel CAD angina pectoris with evidence of demand ischemic injury. 4. History of lacunar infarct 6. Hypertensive cardiovascular disease, BP control improved 7. Hyperlipidemia 8. OSAS off CPAP, awaiting new machine, has dental appliance 9. Morbid obesity post gastric bypass surgery 10. Gastrointestinal bleed with microcytic anemia, suspect moderately severe reflux esophagitis with sliding hiatal hernia/Dileufoy lesion s/p endoclipping 01/2017 P: 1. Resume oral diuresis with monitor diuretic response, renal function and electrolytes, trops downtrending 2. Continue Cozaar 50 qd, Lopressor 50 bid, Lipitor 10 qhs, Pradaxa 150 bid, Protonix 40 qd 3. Avoid NSAIDs, emphasize diet and medication compliance 4. D/c planning with f/u in office with Dr. Pelon Hill
[2019-01-16] MEDS: DABIGATRAN ETEXILATE MESYLATE 150 MG CAPSULE PO SCH (11:06)
[2019-01-16] MEDS: METOPROLOL TARTRATE 50 MG TABLET (FP) PO SCH (11:06)
[2019-01-16] MEDS: LOSARTAN POTASSIUM 50 MG TABLET (FP) PO SCH (11:06)
[2019-01-16] MEDS: PANTOPRAZOLE 40 MG TABLET (FP) PO SCH (11:06)
--- NOTE | 2019-01-16 11:46 | PN ---
Teaching Attending Note Name of Resident: Alexa Clemons ATTENDING PHYSICIAN STATEMENT I saw and evaluated the patient. I reviewed the resident's note and discussed the case with the resident. I agree with the resident's findings and plan as documented with exceptions below. SUBJECTIVE: Patient seen and examined, breathing improved, eager to go home. States does have CPAP at home and plans to continue the same. OBJECTIVE: Vital Signs Period Temp Pulse Resp BP Sys/Ewing Pulse Ox Last 24 Hr 97.7 F-99.1 F 75-104 18-20 122-162/83-99 93-97 Intake & Output 01/13/19 01/14/19 01/15/19 01/16/19 23:59 23:59 23:59 23:59 Intake Total 240 940 Balance 240 940 Weight 288 lb 8 oz 282 lb 278 lb 9.6 oz General: sitting bed, mild tachypnea with exertion, improved Neck: limited exam given habitus CVS:S1s2 irregular Chest: no rales appreciated today, good air entry, pos bowel sounds Extremities: improved pedal pitting edema Home Medications Medication Instructions Recorded Dabigatran Etexilate Mesylate 150 mg PO DAILY 10/08/17 [Pradaxa -] Pantoprazole Sodium [Protonix -] 40 mg PO DAILY 01/01/18 Atorvastatin Ca [Lipitor] 10 mg PO DAILY 01/14/19 Furosemide [Lasix] 40 mg PO DAILY 01/14/19 Losartan Potassium [Cozaar -] 50 mg PO DAILY 01/14/19 Metoprolol Tartrate [Lopressor -] 100 mg PO DAILY 01/14/19 Active Medications Atorvastatin Calcium (Lipitor -) 10 mg PO [facility] Last Admin: 01/15/19 21:34 Dose: 10 mg Dabigatran (Pradaxa -) 150 mg PO BID [facility] Last Admin: 01/16/19 11:06 Dose: 150 mg Furosemide (Lasix -) 40 mg PO DAILY [facility] Last Admin: 01/16/19 11:06 Dose: 40 mg Losartan Potassium (Cozaar -) 50 mg PO DAILY [facility] Last Admin: 01/16/19 11:06 Dose: 50 mg Metoprolol Tartrate (Lopressor -) 50 mg PO BID [facility] Last Admin: 01/16/19 11:06 Dose: 50 mg Pantoprazole Sodium (Protonix -) 40 mg PO DAILY [facility] Last Admin: 01/16/19 11:06 Dose: 40 mg Laboratory Results - last 24 hr 01/16/19 06:00 Sodium 139 Potassium 3.9 Chloride 98 Carbon Dioxide 33 H Anion Gap 7 L BUN 24.0 H Creatinine 1.1 Est GFR (CKD-EPI)AfAm 80.08 Est GFR (CKD-EPI)NonAf 69.10 Random Glucose 108 H Calcium 8.7 ASSESSMENT AND PLAN: 68 yom with PMHX of HFpEF, Afib on pradaxa, Gi bleed (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 Cardiology input noted, changed to po lasix patient eager to go home, agrees to comply with medications and follow up. Discussed with social home oxygen arranged. discussed with patient, to use with activity and ambulation, no smoking around the oxygen. patient reports has CPAP that is functioning. Advised outpatient pulmonary follow up. Continue home Pradaxa, lipitor, losartan, PPI. change to toprol XL 100 mg daily. Dc home after oxygen arrangements made Discussed with patient in detail, all questions and dc instructions explained in detail. Patient relays understanding and agrees to comply Discussed with nursing and social work.
[2019-01-16 14:03] VITALS: BP 123/98; PULSE 103; TEMP 97.9
--- NOTE | 2019-01-16 17:53 | DS ---
Physical Exam: SUBJECTIVE: Patient seen and examined. He reports improved shortness of breath. He denies chest pain. Per chart and previous interview, pt reported CPAP machine was broken at home. He reports it is now working. Pt requires O2 at home. OBJECTIVE: Vital Signs Period Temp Pulse Resp BP Sys/Ewing Pulse Ox Last 24 Hr 97.7 F-98.7 F 89-104 18-20 122-156/85-99 93-97 PHYSICAL EXAM GENERAL: The patient is awake, alert, and fully oriented, in no acute distress. HEAD: Normal with no signs of trauma. EYES: PERRL, extraocular movements intact ENT: Ears normal, nares patent, moist mucous membranes. NECK: Trachea midline LUNGS: Wheezing bilaterally upper lobes HEART: Regular rate and irregular rhythm, no murmur ABDOMEN: Obese, soft, nontender, nondistended, normoactive bowel sounds EXTREMITIES: +1 pitting edema bilateral feet NEUROLOGICAL: Normal speech PSYCH: Normal mood, normal affect. SKIN: Warm, dry, normal turgor LABS Laboratory Results - last 24 hr 01/16/19 06:00 Sodium 139 Potassium 3.9 Chloride 98 Carbon Dioxide 33 H Anion Gap 7 L BUN 24.0 H Creatinine 1.1 Est GFR (CKD-EPI)AfAm 80.08 Est GFR (CKD-EPI)NonAf 69.10 Random Glucose 108 H Calcium 8.7 HOSPITAL COURSE: Mr. Rodriguez is a 68 y/o male with HFpEF, pulmonary HTN, a-fib (on Pradaxa), GI bleed (2018), HTN, HLD, CAD, TIA, morbid obesity, and YOSELIN who is admitted for worsening shortness of breath for 3 days after CPAP machine broke. He also reports not having taken Lasix in 3 weeks because he did not know how to take it. Pt was given Lasix IV and then transitioned to PO. ~9kg weight loss during admission. Echo: EF normal. Bilateral atrial enlargement, mild TR, elevated right ventricular pressure 40-50. He was given an O2 tank for discharge. Date of Admission:01/14/19 Date of Discharge: 01/16/19 Minutes to complete discharge: 35 Discharge Summary Problems reviewed: Yes Reason For Visit: ACUTE CHRONIC CHF Condition: Stable - Instructions Diet, Activity, Other Instructions: Hospital visit: You were admitted to the hospital for shortness of breath. You were given medication to get rid of extra fluid in your body. Your symptoms have improved, and you are able to go home. Medications: Change: Stop taking Metoprolol Tartrate Start taking Metoprolol Succinate (Toprol XL) 100mg Daily Continue lasix 40 mg daily till further instructed. Continue other medications as ebfore. You are being discharged on home oxygen, can use it continuous 2 liters. Specifically advised to use with activity, ambulation and at night as needed. PLEASE NOTE THAT SMOKING WITH OXYGEN IS A FIRE HAZARD. No smoking around the oxygen. Follow up: Dr. Hill, cardiology, in one week to further manage your heart conditions. Dr. Charles Sage, primary care, in one week to review your hospital course. Dr. Calhoun, Pulmonary to further manage your Obstructive sleep apnea and your CPAP needs. Diet: Eat foods that have low sodium. Packaged and canned foods contain a lot of sodium, so you should avoid them. Minimize your salt intake (Less than 1 gram daily). You should also limit how much fluids you drink to 32 ounces a day. It is very important that you comply with your home medications, diet and fluid restriction and weigh yourself daily. Other instructions: Monitor your weight daily. If you gain 2-3 pounds in 4-5 days, call Dr. Hill or go to the emergency room. Go to the emergency room if you have worsening shortness of breath, chest pain, or chest pressure or any new concerns. Referrals: Cory Calhoun MD [Staff Physician] - Juan Miguel Islas [Primary Care Provider] - Pelon Hill MD [Staff Physician] - Disposition: HOME - Home Medications Comprehensive Discharge Medication List: Ambulatory Orders Dabigatran Etexilate Mesylate [Pradaxa -] 150 mg PO DAILY 10/08/17 Pantoprazole Sodium [Protonix -] 40 mg PO DAILY 01/01/18 Atorvastatin Ca [Lipitor] 10 mg PO DAILY 01/14/19 Furosemide [Lasix] 40 mg PO DAILY 01/14/19 Losartan Potassium [Cozaar -] 50 mg PO DAILY 01/14/19 Metoprolol Succinate [Toprol Xl] 100 mg PO DAILY #30 tab.er.24h 01/16/19 This patient is new to me today: No Emergency Visit: Yes ED Registration Date: 01/14/19 Care time: The patient presented to the Emergency Department on the above date and was hospitalized for further evaluation of their emergent condition. Critical Care patient: No - Discharge Referral Referred to [facility] No ATTENDING PHYSICIAN STATEMENT I saw and evaluated the patient. I reviewed the resident's note and discussed the case with the resident. I agree with the resident's findings and plan as documented. SUBJECTIVE: OBJECTIVE: ASSESSMENT AND PLAN:
== END 2019-01-16 16:07 | disposition home or self-care (01) | DRG 292 ==
LOC: JER 06:01 → JERBED 10:07 → J4S 16:43
PROVIDERS: ADMIT Hospitalist; ATTEND Hospitalist
DX: I11.0 Hypertensive heart disease with heart failure (principal); Z68.42 Body mass index [BMI] 45.0-49.9, adult; I24.8 Other forms of acute ischemic heart disease; I50.33 Acute on chronic diastolic (congestive) heart failure; E78.5 Hyperlipidemia, unspecified; E66.01 Morbid (severe) obesity due to excess calories; F41.9 Anxiety disorder, unspecified; I48.91 Unspecified atrial fibrillation; I25.119 Atherosclerotic heart disease of native coronary artery with unspecified angina pectoris; G47.33 Obstructive sleep apnea (adult) (pediatric); I27.20 Pulmonary hypertension, unspecified
CPT/HCPCS: 36415; 71045-TC-FY; 80048; 80053; 82550; 82553; 83735; 83880; 84100; 84132; 84484; 85025; 85027; 85610; 93005; 93010; 93306-TC; 94660; 94761; 99285-25

== ENCOUNTER 2019-12-12 20:54 | Inpatient (IN) | payer OTHER ==
[2019-12-12 21:03] VITALS: BMI 46.5
[2019-12-12] MEDS ORDERED: SODIUM CHLORIDE 1,000 ML IV SCH (21:15)
--- NOTE | 2019-12-12 21:20 | PDOC ---
History of Present Illness - General History Source: Patient, Family, Old Records Exam Limitations: No Limitations - History of Present Illness Initial Comments: 12/12/19 21:18 Alfonso Rodriguez is a 69M with PMH AFIB, GIB, HTN, HLD, CAD s/p Cath, TIA, YOSELIN on CPAP, obesity s/p gastric bypass, brought in by family for confusion, vision changes starting ~7PM today. Per , patient at home when she received a call regarding him feeling unwell. Came home, found him confused and diaphoretic complaining of R vision blurriness, not acting himself, not oriented to location or time, brought to ED for evaluation. Known PMH AFIB on Pradaxa, has not taken since yesterday. Also reports has not taken metoprolol since yesterday, forgot this AM. No prior CVA. <Edwin Santana - Last Filed: 12/15/19 23:19> <Amanda Terrell - Last Filed: 12/17/19 22:04> - General Chief Complaint: CVA/TIA Stated Complaint: HEADACHE/LEFT/R/EYES/BLINDNESS Time Seen by Provider: 12/12/19 21:00 Past History - Medical History Anemia: No Asthma: No Cancer: No Cardiac Disorders: Yes (AFIB) CVA: No COPD: No CHF: No Dementia: No Diabetes: No GI Disorders: Yes (gastric bypass) Disorders: No HTN: Yes Hypercholesterolemia: Yes Kidney Stones: Yes Liver Disease: No Seizures: No Thyroid Disease: No - Surgical History Abdominal Surgery: Yes (GASTRIC BYPASS) Appendectomy: No Cardiac Surgery: No Cholecystectomy: No Lung Surgery: No Neurologic Surgery: No Orthopedic Surgery: Yes (FX (L) ANKLE) - Immunization History Immunization Up to Date: Yes - Psycho-Social/Smoking History Smoking Status: No Smoking History: Never smoked Have you smoked in the past 12 months: No Number of Cigarettes Smoked Daily: 0 - Substance Abuse Hx (Audit-C & DAST Scrn) How often the patient has a drink containing alcohol: Never Score: In Men: 4 or > Positive; In Women: 3 or > Positive: 0 Screen Result (Pos requires Nsg. Audit-10AR): Negative In the last yr the pt used illegal drug/Rx for NonMed reason: No Score: Yes response is considered Positive: 0 Screen Result (Positive result requires Nsg. DAST-10): Negative <Edwin Santana - Last Filed: 12/15/19 23:19> <Amanda Terrell - Last Filed: 12/17/19 22:04> - Medical History Allergies/Adverse Reactions: Allergies Allergy/AdvReac Type Severity Reaction Status Date / Time No Known Allergies Allergy Verified 01/14/19 06:23 Home Medications: Ambulatory Orders Furosemide [Lasix] 40 mg PO DAILY 01/14/19 Losartan Potassium [Cozaar -] 50 mg PO DAILY 01/14/19 Atorvastatin Ca [Lipitor] 80 mg PO HS #30 tablet 12/16/19 Dabigatran Etexilate Mesylate [Pradaxa -] 150 mg PO BID #60 cap 12/16/19 Metoprolol Tartrate [Lopressor -] 50 mg PO BID #60 tablet 12/16/19 Pantoprazole Sodium [Protonix -] 40 mg PO DAILY #30 tab 12/16/19 Review of Systems - Review of Systems Constitutional: Yes: Diaphoresis HEENTM: Yes: Blurred Vision, Recent change in vision. No: Hearing Loss, Difficulty Swallowing Respiratory: No: Symptoms reported Cardiac (ROS): No: Symptoms Reported ABD/GI: Yes: Poor Appetite, Poor Fluid Intake. No: Constipated, Diarrhea, Nausea, Vomiting : No: Symptoms Reported Musculoskeletal: No: Symptoms Reported Integumentary: No: Symptoms Reported Neurological: Yes: Dizziness Endocrine: No: Symptoms Reported Hematologic/Lymphatic: No: Symptoms Reported All Other Systems: Reviewed and Negative <Edwin Santana - Last Filed: 12/15/19 23:19> *Physical Exam - Vital Signs Last Vital Signs Temp Pulse Resp BP Pulse Ox 98.5 F 70 19 184/99 H 99 12/12/19 20:58 12/12/19 20:58 12/12/19 20:58 12/12/19 20:58 12/12/19 20:58 - Physical Exam General Appearance: Yes: Nourished, Appropriately Dressed. No: Apparent Distress HEENT: positive: EOMI, YEFRI, Pharynx Normal. negative: Scleral Icterus (R), Scleral Icterus (L), Pharyngeal Erythema, Tonsillar Exudate, Tonsillar Erythema Neck: positive: Normal Thyroid, Supple. negative: Tender, Rigid, Lymphadenopathy (R), Lymphadenopathy (L) Respiratory/Chest: positive: Lungs Clear, Normal Breath Sounds. negative: Chest Tender, Respiratory Distress, Accessory Muscle Use, Crackles, Rales, Rhonchi, Stridor, Wheezing Cardiovascular: positive: Regular Rhythm, Regular Rate. negative: Murmur Gastrointestinal/Abdominal: positive: Normal Bowel Sounds, Flat, Soft. negative: Tender, Organomegaly, Pulsatile Mass, Guarding, Rebound Musculoskeletal: positive: Normal Inspection. negative: CVA Tenderness, CVA Tenderness (L), Vertebral Tenderness Extremity: positive: Normal Capillary Refill, Normal Inspection, Normal Range of Motion, Pelvis Stable. negative: Tender, Pedal Edema, Swelling, Calf Tenderness Integumentary: positive: Normal Color, Dry Neurologic: positive: Alert, Motor Strength 5/5, Finger to Nose (normal), Confused, Other (gait unsteady). negative: loan documents closer II-XII NML intact (decreased vision to R eye temporal upper/lower peralta but not R nasal upper/lower peralta, L eye vision intact to finger testing all peralta), Fully Oriented (confused, not oriented to age, birthday, month, year, or location), Normal Mood/Affect, Normal Response, Facial Droop <Edwin Santana - Last Filed: 12/15/19 23:19> - Vital Signs Last Vital Signs Temp Pulse Resp BP Pulse Ox 98.5 F 72 16 144/71 98 12/16/19 14:05 12/16/19 14:05 12/16/19 14:05 12/16/19 14:05 12/16/19 12:55 <Amanda Terrell - Last Filed: 12/17/19 22:04> NIH Stroke Scale - Last Known Well Date/Time & Onset Date Last Known Well: 12/12/19 Time Last Known Well: 19:00 - Initial Evaluation Level of consciousness: Alert Ask patient the month and their age: Both incorrect Ask patient to open & close eyes; make fist and let go: Obeys both correctly Best gaze (horizontal eye movement): Partial gaze palsy Visual field testing: Partial hemianopia Facial paresis (Show teeth/raise eyebrows/close eyes tight): Normal symmetrical movement Motor Function: Left Arm: Normal Motor Function: Right Arm: Normal (extends arm 90 (or 45) degrees for 10 seconds without drift Motor Function: Left Leg: Normal (extends leg 30 degrees for 5 seconds without drift) Motor Function: Right Leg: Normal (extends leg 30 degrees for 5 seconds without drift) Limb Ataxia: No ataxia Sensory(Use pinprick test arms,legs,trunk,face/side to side): Normal Best language (Describe picture, name items, read sentences): No Aphasia Dysarthria (read several words): Normal articulation Extinction and Inattention: No abnormality - Total Score NIH Stroke Scale Score: 4 <Edwin Santana - Last Filed: 12/15/19 23:19> tPA Exclusion Checklist 0-3hr - Time Elapsed Date last known well: 12/12/19 Time last known well: 19:00 Elaspsed time: 3 Day(s) and 4 Hour(s) and 19 Minutes - Exclusion Criteria 0-3hr SBP greater than 185 or DBP greater than 110mmHg despite tx: No Recent IC/spinal surgery,head trauma or stroke w/in last 3mo: No Hx of previous IC hemorrhage, IC neoplasm, AVM or aneurysm: No Active internal bleeding: No Blding diathesis(low plt ct, inc PTT,INR>1.7 or use of NOAC): Yes Symptoms suggest subarachnoid hemorrhage: No CT demonstrates multilobar infarct(>1/3 cerebral hemiphere): No Arterial puncture at noncompressible site in previous 7 days: No Blood glucose concentration less than 50mg/dL (2.7mmol/L): No <Edwin Santana - Last Filed: 12/15/19 23:19> Critical Care Time/MDM Note - Medical Decision Making Note: 12/12/19 21:44 Patient presents with confusion and visual field deficit to R eye, Jake Fernandez called, patient brought to CT immediately. LKN 2 hours [facility], but patient takes Pradaxa, last use yesterday, contraindication for tPA. NIHSS 4 for confusion as well as R peripheral vision deficit. CT head no bleeding. Repeat NIHSS unchanged from prior 30 minutes after Code Fernandez, still has confusion and R-side visual deficit. CVA labs sent. 12/12/19 21:[address] Juarez information technology internship for neurology. Repeated visual field testing with all visual peralta in both eyes OS nasal and temporal upper and lower visual acuity to finger test OD nasal upper and lower acuity but loss of vision to the temporal upper and lower peralta 12/12/19 22:22 ECG AFIB with SVR and RBBB, TWI I/II/aVL/V5/V6, no LISSETT/D, HR 44, Qtc 448. 12/12/19 23:[address] Juarez. Given right monocular temporal field vision loss, concerned that this is less likely CVA, more likely hypertensive encephalopathy. Does not recommend tPA given less likely CVA. Recommends BP management with goal 140/90, give ASA, and admit to stroke tele and AM MRI/carotid dopplers. Giving ASA, will admit to stroke tele. R monocular temporal vision loss persists on Q15 minute repeat exam. 12/13/19 00:41 Discussed case with night team, accepts for TELE admit. 12/13/19 01:38 Patient persists in having right eye temporal monocular vision loss. Admitting team examined patient and agree with exam. Concerned about delay time to MRI and possible retinal artery/vein pathology. Bedside US no retinal detachment or optical nerve swelling. No ophthalmology information technology internship, listed is Dr. Jesus Kim but when contacted not information technology internship. Merits transfer to OSH for ophtho evaluation, patient prefers [facility]. [facility] transfer center notified. Spoke to Dr. Kim at [facility] ophthalmology, discussed acute, sudden onset monocular vision loss and case in detail. Dr. Kim does not believe this is a retinal artery occlusion based on HPI and ocular exam, more likely to be CVA given history. Does not accept for transfer, would be better served getting AM MRI and further neurology evaluation. Will keep in [facility] to TELE floor for AM MRI as prior plan. Notifying admitting team. <Edwin Santana - Last Filed: 12/15/19 23:19> Discharge - Discharge Information Problems reviewed: Yes - Admission Yes <Edwin Santana - Last Filed: 12/15/19 23:19> <Amanda Terrell - Last Filed: 12/17/19 22:04> - Discharge Information Clinical Impression/Diagnosis: Dizziness, Vision loss of right eye AMS (altered mental status) Qualifiers: Altered mental status type: unspecified Qualified Code(s): R41.82 - Altered mental status, unspecified Condition: Stable Disposition: HOME
[2019-12-12 21:59] LABS: BASO % 0.6 % (0-2.0); EOS % 1.1 % (0-4.5); HEMATOCRIT 40.9 % (35.4-49); HEMOGLOBIN 13.6 GM/dL (11.7-16.9); LYMPH % 13.1 % (8-40); MCH 32.8 pg (25.7-33.7); MCHC 33.2 g/dl (32.0-35.9); MEAN CELL VOLUME 98.8 fl (80-96); MEAN PLT VOLUME 9.4 fl (7.5-11.1); MONO % 7.4 % (3.8-10.2); NEUT % 77.8 % (42.8-82.8); PLATELET COUNT 214 K/MM3 (134-434); RBC 4.13 M/mm3 (4.00-5.60); RDW 13.6 % (11.9-15.9); WHITE BLOOD COUNT 7.5 K/mm3 (4.0-10.0)
[2019-12-12 22:07] LABS: INR 1.19 (0.83-1.09); PROTHROMBIN TIME (PATIENT) 14.1 SEC (9.7-13.0)
[2019-12-12 22:09] LABS: ACTIVATED PTT 33.7 SECONDS (25.2-36.5)
[2019-12-12 22:22] LABS: BILIRUBIN,TOTAL 0.5 mg/dL (0.2-1); BLOOD UREA NITROGEN 30.2 mg/dL (7-18); CALCIUM 8.5 mg/dL (8.5-10.1); CREATININE 1.1 mg/dL (0.55-1.3); POTASSIUM 4.3 mmol/L (3.5-5.1); TOT PROT 7.7 g/dl (6.4-8.2)
[2019-12-12 23:00] LABS: EPI CELLS 11 /uL (0-25.1); HYALINE CASTS 1 /uL (0-3.1); URINE APPEARANCE CLEAR; URINE BACTERIA 26 /uL (0-1359); URINE BILIRUBIN NEGATIVE (NEGATIVE); URINE COLOR YELLOW; URINE GLUCOSE (UA) NEGATIVE (NEGATIVE); URINE KETONE NEGATIVE (NEGATIVE); URINE LEUK ESTERASE NEGATIVE (NEGATIVE); URINE NITRITE NEGATIVE (NEGATIVE); URINE PROTEIN 2+ (NEGATIVE); URINE RBC 9 /uL (0-23.9); URINE WBC 13 /uL (0-25.8)
[2019-12-12] MEDS ORDERED: ASPIRIN 81 MG CHEWABLE TABLETS PO ONE (23:02)
[2019-12-12] MEDS ORDERED: ASPIRIN 81 MG CHEWABLE TABLETS ONE (23:42)
--- NOTE | 2019-12-13 00:06 | PDOC ---
Documentation entered by Reece Mata SCRIBE, acting as scribe for Amanda Terrell MD. Amanda Terrell MD: This documentation has been prepared by the Adolfo storm Aaron, SCRIBE, under my direction and personally reviewed by me in its entirety. I confirm that the documentation accurately reflects all work, treatment, procedures, and medical decision making performed by me. Attending Attestation - Resident Resident Name: Edwin Santana - ED Attending Attestation I have performed the following: I have examined & evaluated the patient, The case was reviewed & discussed with the resident, I agree w/resident's findings & plan, Exceptions are as noted - HPI HPI: 12/12/19 23:43 The patient is a 69 year old male with a significant PMH of AFIB, GIB, HTN, HLD, CAD s/p Cath, TIA, YOSELIN on CPAP, obesity s/p gastric bypass who presents to the emergency department BIB family for confusion and vision changes that began at 7 pm today. As per , patient called her saying he was feeling unwell. When she arrived at home he was confused, diaphoretic, with R eye blurred vision, a&o x 1 (not location or time) all of which are new. Patient reports he last took his pradaxa yesterday and missed his metoprolol today. Currently, he reports the blurry vision is still present but better than before. Patient denies any hx of cva. Allergies: NKDA Past surgical history: gastric bypass. L Ankle orthopedic PCP: Has one but cannot remember name, on [address] - Physicial Exam PE: Agree with resident exam - Medical Decision Making 12/12/19 21:22 69yo M with MMP presents to the ED with new onset visual field cut, confusion, and disorientation c/f CVA vs TIA. On exam, +R homonymous hemianopsia, no other focal motor/sensory deficits Unlikely primary ocular pathology given associated elevated BP and change in mental status per family. Furthermore, homonomous hemianopsia more likely 2/2 CVA NIHSS 4. Given pt on pradaxa and last dose approx 24hrs ago, he is not TPA candidate but plan to discuss with neuro immigration associate CTH on my read negative for acute path, awaiting final read Neuro immigration associate Dr. Larry centeno, awaiting call back EKG with AF with slow VR, BP elevated to 178/80, will allow for permissive HTN given presumed ischemic stroke 12/12/19 21:44 CTH read as negative Neuro immigration associate Dr. Larry centeno, second call, awaiting call back BP elevated to 184/84, continue permissive HTN 12/12/19 22:[address] Larry centeno, third call, awaiting call back 12/12/19 22:[address] Juarez by Dr. Santana on phone. Per Dr. Juarez, symptoms more consistent with HTN encephalopathy Recommends ASA, MRI, and consider lowering BP to goal of 140 SBP ASA given, MRI ordered. Will refrain from lowering BP in case HTN is compen sating for reduced perfusion to ischemic penumbra Hospitalist team microblogged for admission 12/12/19 23:51 Case discussed with admitting team, pt accepted to stroke tele bed (Dr. Smith's service) Case discussed in detail with admitting physician including history, physical exam and ancillary studies. Admitting physician has assumed care for the patient, will follow all pending diagnostics and will complete the evaluation and treatment. 12/13/19 00:00 Case signed out to overnight attending as admitted Discharge - Discharge Information Problems reviewed: Yes Clinical Impression/Diagnosis: Dizziness, Vision loss of right eye AMS (altered mental status) Qualifiers: Altered mental status type: unspecified Qualified Code(s): R41.82 - Altered mental status, unspecified Condition: Stable Disposition: HOME - Follow up/Referral - Patient Discharge Instructions - Post Discharge Activity
--- NOTE | 2019-12-13 00:30 | PN ---
Teaching Attending Note Name of Resident: Nicholas Vinson ATTENDING PHYSICIAN STATEMENT I saw and evaluated the patient. I reviewed the resident's note and discussed the case with the resident. I agree with the resident's findings and plan as documented. SUBJECTIVE: Patient is a 69 year old man with a PMH of Afib (on Pradaxa), GI bleeding, HTN, HLD, CAD, TIA, YOSELIN (on CPAP) and Morbid obesity (s/p gastric bypass) brought in by family for confusion and vision changes starting about 7 pm today. Per , patient at home when she received a call regarding him feeling unwell. Came home, found him confused and diaphoretic complaining of right vision blurriness, not acting himself and not oriented to location or time. Reports has not taken Metoprolol and Pradaxa since yesterday. No prior CVA or VTE. Patient denies chest pain, shortness of breath, abdominal pain, headache, palpitations, fever, chills, nausea, vomiting, diarrhea, constipation, dysuria, frequency, urgency, melena, hematochezia or hematuria. Denies alcohol, tobacco or illicit drug use. No sick contacts or recent travels. Family history is unremarkable. NIHSS score was 4 in the ER as well as right peripheral vision deficit and a code marroquin was called. OBJECTIVE: Alert Vital Signs Period Temp Pulse Resp BP Sys/Ewing Pulse Ox Last 24 Hr 98.5 F 55-70 18-19 184-184/84-99 98-99 HEENT: No Jaundice, eye redness or discharge, PERRLA, EOMI. Normocephalic, atraumatic. External ears are normal and hearing is grossly intact. No nasal discharge. Neck: Supple, nontender. No palpable adenopathy or thyromegaly. No JVD Chest: Good effort. Clear to auscultation and percussion. Heart: Irregularly irregular. No S3, rub or murmur Abdomen: Not distended, soft, nontender and no HSM. No rebound or guarding. Normal bowel sounds. Ext: Peripheral pulses intact. No leg edema. Skin: Warm and dry. No petechiae, rash or ecchymosis. Neuro: Alert. Oriented x3. CN 2-12 grossly intact. Sensation grossly intact in all four extremities and DTR are symmetric. Psych: Appropriate mood and affect. Good insight. Home Medications Medication Instructions Recorded Dabigatran Etexilate Mesylate 150 mg PO DAILY 10/08/17 [Pradaxa -] Pantoprazole Sodium [Protonix -] 40 mg PO DAILY 01/01/18 Atorvastatin Ca [Lipitor] 10 mg PO DAILY 01/14/19 Furosemide [Lasix] 40 mg PO DAILY 01/14/19 Losartan Potassium [Cozaar -] 50 mg PO DAILY 01/14/19 Metoprolol Tartrate [Lopressor] 100 mg PO BID 12/12/19 Abnormal Lab Results 12/12/19 12/12/19 12/12/19 21:40 21:40 21:40 MCV 98.8 H PT with INR 14.10 H INR 1.19 H Anion Gap 7 L BUN 30.2 H Random Glucose 109 H AST 55 H Troponin I 0.06 H Triglycerides 175 H Total LDL Cholesterol 114 H Urine Protein 12/12/19 22:50 MCV PT with INR INR Anion Gap BUN Random Glucose AST Troponin I Triglycerides Total LDL Cholesterol Urine Protein 2+ H Current Medications Generic Name Dose Route Start Last Admin Trade Name Freq PRN Reason Stop Dose Admin Sodium Chloride 1,000 mls @ 42 mls/hr 12/12/19 21:15 12/12/19 23:35 Normal Saline - IV 42 mls/hr ASDIR VALERIE Administration ASSESSMENT AND PLAN: 1. Rule out CVA- ER staff discussed case with Dr. Juarez - in view of right monocular vision loss, concerned that this is less likely CVA but more likely hypertensive encephalopathy. Does not recommend tPA given less likely CVA. Recommends BP management with goal 140/90. Also recommend Aspirin, admit to stroke telemetry and brain MRI/carotid doppler in the morning. ER staff prescribed Aspirin 324 mg and IV NS for the patient. EKG shows Afib at 44/minute, RBBB and QTc 448, T wave inversion in I, II, aVL, V5-V6 with no ischemic ST changes. T wave changes are new compared to prior EKG from 01/14/2019. Initial troponin is 0.06. Will admit to telemetry, increase Lipitor to 40 mg qd, continue Pradaxa, trend troponin, repeat EKG, get ECHO, brain MRI, do speech and swallow evaluation, neurochecks and implement fall/aspiration/seizure precautions. Consult PT/Opthalmology. Get urine protein/creatinine ratio - proteinuria may be due to obesity (?FSGS). Viral testing for COVID-19 ordered and patient placed on airborne, droplet and contact isolation. Will continue comprehensive care for all of patients comorbid conditions including Pradaxa for Afib. 2. Morbid obesity Counseled on the risks associated with obesity. Will provide patient all the necessary assistance, counseling and positive reinforcement to facilitate weight loss. Consult line operator. 3. Hypertension Will restart suitable outpatient antihypertensive drugs with BP goal of 140/90 as recommended by Neurology. Subsequently, will revise regimen to ensure [id number] excellent BP control. Patient counseled on the injurious effects of uncontrolled hypertension. Nonpharmacologic measures to control hypertension like weight loss, salt restriction and exercise stressed. Importance of adherence to treatment regimen and attainment of normotension emphasized. 4. DVT prophylaxis - On Pradaxa 5. Advance directives - Full code
--- NOTE | 2019-12-13 03:18 | HP ---
CHIEF COMPLAINT: Sudden partial vision loss Loss in orientation PCP: Dr. Juan Miguel Islas HISTORY OF PRESENT ILLNESS: Pt is a 69 year old male with PMHx of Afib on Pradaxa, TIA, CAD s/p cath, HTN. HLD, GIB, YOSELIN on CPAP, obesity s/p gastric bypass presenting after stating he had acute vision loss at 3pm today in both eyes R hemianopsia. Pt state this has not occurred in the past. Pt states it is not painful when looking in a certain direction. ED also states he became A&Ox1 at 7pm as per patients . Pt is now A&O x3 and responding to questions when examined in the ED. Pt was also found to be in AFib with a low HR (50s), but is asymptomatic. Pt states he has not taken his medications for his afib since yesterday (metoprolol, pradaxa) Pt denies fever, chills, SOB, palpitations, loss of sensation. ER course was notable for: (1) Head CT negative for acute pathology (2) EKG with SVR, RBBB; bradycardic; TWI I/II/aVL/V5/V6 (3) ASA 324 once (4) BP noted 188/100 Recent Travel: Denies PAST MEDICAL HISTORY: As stated above PAST SURGICAL HISTORY: Gastric bypass L ankle fx Social History: Smoking: Denies Alcohol: Denies Drugs: Denies Allergies No Known Allergies Allergy (Verified 01/14/19 06:23) HOME MEDICATIONS: Home Medications Medication Instructions Recorded Dabigatran Etexilate Mesylate 150 mg PO DAILY 10/08/17 [Pradaxa -] Pantoprazole Sodium [Protonix -] 40 mg PO DAILY 01/01/18 Atorvastatin Ca [Lipitor] 10 mg PO DAILY 01/14/19 Furosemide [Lasix] 40 mg PO DAILY 01/14/19 Losartan Potassium [Cozaar -] 50 mg PO DAILY 01/14/19 Metoprolol Tartrate [Lopressor] 100 mg PO BID 12/12/19 REVIEW OF SYSTEMS CONSTITUTIONAL: Absent: fever, chills, diaphoresis, generalized weakness, malaise, loss of appetite, weight change HEENT: Visual changes, unable to see R hemianopsia. Absent: rhinorrhea, nasal congestion, throat pain, throat swelling, difficulty swallowing, mouth swelling, ear pain, eye pain, visual changes CARDIOVASCULAR: Absent: chest pain, syncope, palpitations, irregular heart rate, lightheadedness, peripheral edema RESPIRATORY: Absent: cough, shortness of breath, dyspnea with exertion, orthopnea, wheezing, stridor, hemoptysis GASTROINTESTINAL: Absent: abdominal pain, abdominal distension, nausea, vomiting, diarrhea, constipation, melena, hematochezia GENITOURINARY: Absent: dysuria, frequency, urgency, hesitancy, hematuria, flank pain, genital pain MUSCULOSKELETAL: Absent: myalgia, arthralgia, joint swelling, back pain, neck pain SKIN: Absent: rash, itching, pallor HEMATOLOGIC/IMMUNOLOGIC: Absent: easy bleeding, easy bruising, lymphadenopathy, frequent infections ENDOCRINE: Absent: unexplained weight gain, unexplained weight loss, heat intolerance, cold intolerance NEUROLOGIC: Resolved headache Absent: headache, focal weakness or paresthesias, dizziness, unsteady gait, seizure, mental status changes, bladder or bowel incontinence PSYCHIATRIC: Absent: anxiety, depression, suicidal or homicidal ideation, hallucinations. PHYSICAL EXAMINATION Vital Signs - 24 hr 12/12/19 12/12/19 12/12/19 20:58 21:04 22:34 Temperature 98.5 F Pulse Rate 70 Pulse Rate [ 55 L Left Radial] Respiratory 19 18 Rate Blood Pressure 184/99 H Blood Pressure 184/84 H [Left Arm] O2 Sat by Pulse 99 98 Oximetry (%) GENERAL: Awake, alert, and fully oriented, in no acute distress. HEAD: Normal with no signs of trauma. EYES: Pupils equal, round and reactive to light, extraocular movements intact, sclera anicteric, conjunctiva clear. No lid lag. EARS, NOSE, THROAT: Ears normal, nares patent, oropharynx clear without ex udates. Moist mucous membranes. NECK: Normal range of motion, supple without lymphadenopathy, JVD, or masses. LUNGS: Breath sounds equal, clear to auscultation bilaterally. No wheezes, and no crackles. No accessory muscle use. HEART: Regular rate and rhythm, normal S1 and S2 without murmur, rub or gallop. ABDOMEN: Soft, nontender, not distended, normoactive bowel sounds, no guarding, no rebound, no masses. No hepatomegaly or splenomegaly. MUSCULOSKELETAL: Normal range of motion at all joints. No bony deformities or tenderness. No CVA tenderness. UPPER EXTREMITIES: 2+ pulses, warm, well-perfused. No cyanosis. No clubbing. No peripheral edema. LOWER EXTREMITIES: 2+ pulses, warm, well-perfused. No calf tenderness. No peripheral edema. NEUROLOGICAL: Cranial nerves II-XII intact. Normal speech. Normal gait. R hemianopsia in both eyes. PSYCHIATRIC: Cooperative. Good eye contact. Appropriate mood and affect. SKIN: Warm, dry, normal turgor, no rashes or lesions noted, normal capillary refill. Laboratory Results - last 24 hr 12/12/19 12/12/19 12/12/19 21:38 21:40 21:40 WBC 7.5 RBC 4.13 Hgb 13.6 Hct 40.9 MCV 98.8 H MCH 32.8 D MCHC 33.2 RDW 13.6 D Plt Count 214 MPV 9.4 Absolute Neuts (auto) 5.9 Neutrophils % 77.8 D Lymphocytes % 13.1 D Monocytes % 7.4 Eosinophils % 1.1 Basophils % 0.6 Nucleated RBC % 0 PT with INR 14.10 H INR 1.19 H PTT (Actin FS) 33.7 Sodium Potassium Chloride Carbon Dioxide Anion Gap BUN Creatinine Est GFR (CKD-EPI)AfAm Est GFR (CKD-EPI)NonAf POC Glucometer 110 Random Glucose Lactic Acid Calcium Total Bilirubin AST ALT Alkaline Phosphatase Creatine Kinase Creatine Kinase Index CK-MB (CK-2) Troponin I Total Protein Albumin Triglycerides Cholesterol Total LDL Cholesterol HDL Cholesterol Urine Color Urine Appearance Urine pH Ur Specific [place] Urine Protein Urine Glucose (UA) Urine Ketones Urine Blood Urine Nitrite Urine Bilirubin Urine Urobilinogen Ur Leukocyte Esterase Urine WBC (Auto) Urine RBC (Auto) Urine Casts (Auto) U Epithel Cells (Auto) Urine Bacteria (Auto) Blood Type Antibody Screen 12/12/19 12/12/19 12/12/19 21:40 21:40 21:40 WBC RBC Hgb Hct MCV MCH MCHC RDW Plt Count MPV Absolute Neuts (auto) Neutrophils % Lymphocytes % Monocytes % Eosinophils % Basophils % Nucleated RBC % PT with INR INR PTT (Actin FS) Sodium 138 Potassium 4.3 Chloride 106 Carbon Dioxide 25 Anion Gap 7 L BUN 30.2 H Creatinine 1.1 Est GFR (CKD-EPI)AfAm 79.52 Est GFR (CKD-EPI)NonAf 68.61 POC Glucometer Random Glucose 109 H Lactic Acid 1.2 Calcium 8.5 Total Bilirubin 0.5 AST 55 H ALT 44 Alkaline Phosphatase 98 Creatine Kinase 208 Creatine Kinase Index 1.7 CK-MB (CK-2) 3.6 Troponin I 0.06 H Total Protein 7.7 Albumin 4.0 Triglycerides 175 H Cholesterol 193 Total LDL Cholesterol 114 H HDL Cholesterol 51 Urine Color Urine Appearance Urine pH Ur Specific [place] Urine Protein Urine Glucose (UA) Urine Ketones Urine Blood Urine Nitrite Urine Bilirubin Urine Urobilinogen Ur Leukocyte Esterase Urine WBC (Auto) Urine RBC (Auto) Urine Casts (Auto) U Epithel Cells (Auto) Urine Bacteria (Auto) Blood Type O POSITIVE Antibody Screen Negative 12/12/19 22:50 WBC RBC Hgb Hct MCV MCH MCHC RDW Plt Count MPV Absolute Neuts (auto) Neutrophils % Lymphocytes % Monocytes % Eosinophils % Basophils % Nucleated RBC % PT with INR INR PTT (Actin FS) Sodium Potassium Chloride Carbon Dioxide Anion Gap BUN Creatinine Est GFR (CKD-EPI)AfAm Est GFR (CKD-EPI)NonAf POC Glucometer Random Glucose Lactic Acid Calcium Total Bilirubin AST ALT Alkaline Phosphatase Creatine Kinase Creatine Kinase Index CK-MB (CK-2) Troponin I Total Protein Albumin Triglycerides Cholesterol Total LDL Cholesterol HDL Cholesterol Urine Color Yellow Urine Appearance Clear Urine pH 6.0 Ur Specific [place] 1.020 Urine Protein 2+ H Urine Glucose (UA) Negative Urine Ketones Negative Urine Blood Negative Urine Nitrite Negative Urine Bilirubin Negative Urine Urobilinogen 1.0 Ur Leukocyte Esterase Negative Urine WBC (Auto) 13 Urine RBC (Auto) 9 Urine Casts (Auto) 1 U Epithel Cells (Auto) 11 Urine Bacteria (Auto) 26 Blood Type Antibody Screen ASSESSMENT/PLAN: Pt is a 69 year old male with PMHx of Afib on Pradaxa, TIA, CAD s/p cath, HTN. HLD, GIB, YOSELIN on CPAP, obesity s/p gastric bypass presenting after stating he had acute vision loss at 3pm today in both eyes R hemianopsia, admitted for stroke workup, afib and uncontrolled HTN. #R homonymous hemianopsia #Rule out CVA -CT head negative for acute pathology -MRI ordered for AM -Consider CT angio vs. MRI to rule out occlusion -carotid duplex ordered -on Pradaxa, not tPA candidate -Per neuro; believes it is hypertensive encephalopathy as opposed to stroke -Attempted transfer to [facility], [facility] -Speech and swallow ordered #HTN -Uncontrolled BP - 188/100; HR 50s -Hydralazine 10mg once -Monitor BP -Hold beta blockers due to bradycardia -Resume home losartan in AM #Afib -EKG showing Afib, but HR in 50s -Hold metoprolol due to bradycardia -Resume pradaxa in AM #Hx HLD -Continue home statin FEN: NPO; pending speech/swallow No standing fluids, can resume if HTN resolves if needed Monitor electrolytes PPx: Lovenox Dispo Admitted to [facility]. R homonymous hemianopsia acutely at 3pm. Attempted transfer to [facility], denied. Afib and bradycardic, held beta blockers. HTN 188/100, given hydralazine once. Family Medical History Family History: As Documented Visit type - Medication Review Med list reviewed for High Risk Meds patients 65 and older: Yes - Emergency Visit Emergency Visit: Yes ED Registration Date: 12/12/19 Care time: The patient presented to the Emergency Department on the above date and was hospitalized for further evaluation of their emergent condition. - New Patient This patient is new to me today: No - Critical Care Critical Care patient: No ATTENDING PHYSICIAN STATEMENT I saw and evaluated the patient. I reviewed the resident's note and discussed the case with the resident. I agree with the resident's findings and plan as documented. SUBJECTIVE: OBJECTIVE: ASSESSMENT AND PLAN:
[2019-12-13] MEDS ORDERED: hydrALAZINE HCL 20 MG/ML VIAL IVPUSH ONE (03:32)
--- NOTE | 2019-12-13 03:45 | PN ---
Teaching Attending Note Name of Resident: Nicholas Vinson ATTENDING PHYSICIAN STATEMENT I saw and evaluated the patient. I reviewed the resident's note and discussed the case with the resident. I agree with the resident's findings and plan as documented. SUBJECTIVE: Patient is a 69 year old man with a PMH of Afib (on Pradaxa), GI bleeding, HTN, HLD, CAD, TIA, YOSELIN (on CPAP) and Morbid obesity (s/p gastric bypass) brought in by family for confusion and vision changes starting about 7 pm today. Per , patient at home when she received a call regarding him feeling unwell. Came home, found him confused and diaphoretic complaining of right vision blurriness, not acting himself and not oriented to location or time. Reports has not taken Metoprolol and Pradaxa since yesterday. No prior CVA or VTE. Patient denies chest pain, shortness of breath, abdominal pain, headache, palpitations, fever, chills, nausea, vomiting, diarrhea, constipation, dysuria, frequency, urgency, melena, hematochezia or hematuria. Denies alcohol, tobacco or illicit drug use. No sick contacts or recent travels. Family history is unremarkable. NIHSS score was 4 in the ER as well as right peripheral vision deficit and a code marroquin was called. OBJECTIVE: Alert Vital Signs Period Temp Pulse Resp BP Sys/Ewing Pulse Ox Last 24 Hr 98.5 F 55-70 18-19 184-184/84-99 98-99 HEENT: No Jaundice, eye redness or discharge, PERRLA, right lateral hemianopsia. Normocephalic, atraumatic. External ears are normal and hearing is grossly intact. No nasal discharge. Neck: Supple, nontender. No palpable adenopathy or thyromegaly. No JVD Chest: Good effort. Clear to auscultation and percussion. Heart: Irregularly irregular. No S3, rub or murmur Abdomen: Not distended, soft, nontender and no HSM. No rebound or guarding. Normal bowel sounds. Ext: Peripheral pulses intact. No leg edema. Skin: Warm and dry. No petechiae, rash or ecchymosis. Neuro: Alert. Oriented x3. CN 2-12 grossly intact. Sensation grossly intact in all four extremities and DTR are symmetric. Psych: Appropriate mood and affect. Good insight. Home Medications Medication Instructions Recorded Dabigatran Etexilate Mesylate 150 mg PO DAILY 10/08/17 [Pradaxa -] Pantoprazole Sodium [Protonix -] 40 mg PO DAILY 01/01/18 Atorvastatin Ca [Lipitor] 10 mg PO DAILY 01/14/19 Furosemide [Lasix] 40 mg PO DAILY 01/14/19 Losartan Potassium [Cozaar -] 50 mg PO DAILY 01/14/19 Metoprolol Tartrate [Lopressor] 100 mg PO BID 12/12/19 Abnormal Lab Results 12/12/19 12/12/19 12/12/19 21:40 21:40 21:40 MCV 98.8 H PT with INR 14.10 H INR 1.19 H Anion Gap 7 L BUN 30.2 H Random Glucose 109 H AST 55 H Troponin I 0.06 H Triglycerides 175 H Total LDL Cholesterol 114 H Urine Protein 12/12/19 22:50 MCV PT with INR INR Anion Gap BUN Random Glucose AST Troponin I Triglycerides Total LDL Cholesterol Urine Protein 2+ H Current Medications Generic Name Dose Route Start Last Admin Trade Name Freq PRN Reason Stop Dose Admin Enoxaparin Sodium 40 mg 12/13/19 10:00 Lovenox - SQ DAILY VALERIE Losartan Potassium 50 mg 12/13/19 10:00 Cozaar - PO DAILY VALERIE ASSESSMENT AND PLAN: 1. Vision loss/Rule out CVA - ER staff discussed case with Dr. Juarez - in view of right monocular vision loss, concerned that this is less likely CVA but more likely hypertensive encephalopathy. Does not recommend tPA given less likely CVA. Recommends BP management with goal 140/90. Also recommended Aspirin, admit to stroke telemetry and brain MRI/carotid doppler in the morning. ER staff pr escribed Aspirin 324 mg and IV NS for the patient. EKG shows Afib at 44/minute, RBBB and QTc 448, T wave inversion in I, II, aVL, V5-V6 with no ischemic ST changes. T wave changes are new compared to prior EKG from 01/14/2019. Initial troponin is 0.06. Will admit to telemetry, increase Lipitor to 40 mg qd, continue Pradaxa, trend troponin, repeat EKG, get ECHO, brain MRI, do speech and swallow evaluation, neurochecks and implement fall/aspiration/seizure precautions. Consult PT/Opthalmology. Get urine protein/creatinine ratio - proteinuria may be due to obesity (?FSGS). Viral testing for COVID-19 ordered and patient placed on airborne, droplet and contact isolation. Will continue comprehensive care for all of patients comorbid conditions including Pradaxa for Afib. 2. Morbid obesity Counseled on the risks associated with obesity. Will provide patient all the necessary assistance, counseling and positive reinforcement to facilitate weight loss. Consult passenger vessel chef. 3. Hypertension Will restart suitable outpatient antihypertensive drugs with BP goal of 140/90 as recommended by Neurology. Subsequently, will revise regimen to ensure [id number] excellent BP control. Patient counseled on the injurious effects of uncontrolled hypertension. Nonpharmacologic measures to control hypertension like weight loss, salt restriction and exercise stressed. Importance of adherence to treatment regimen and attainment of normotension emphasized. 4. DVT prophylaxis - On Pradaxa 5. Advance directives - Full code
[2019-12-13] MEDS ORDERED: hydrALAZINE HCL 20 MG/ML VIAL ONE (04:53)
[2019-12-13] MEDS ORDERED: ENOXAPARIN NA (PORCINE) 40 MG/0.4 ML DISP.SYRIN SQ SCH (10:00)
[2019-12-13] MEDS ORDERED: DABIGATRAN ETEXILATE MESYLATE 150 MG CAPSULE PO SCH (10:00)
[2019-12-13] MEDS ORDERED: ENOXAPARIN NA (PORCINE) 40 MG/0.4 ML DISP.SYRIN SQ ONE (10:10)
[2019-12-13] MEDS ORDERED: ASPIRIN 81 MG CHEWABLE TABLETS ONE (10:10)
[2019-12-13] MEDS ORDERED: LOSARTAN POTASSIUM 50 MG TABLET (FP) ONE (10:10)
[2019-12-13] MEDS: LOSARTAN POTASSIUM 50 MG TABLET (FP) PO SCH (10:17)
[2019-12-13] MEDS: ASPIRIN 81 MG CHEWABLE TABLETS PO SCH (10:17)
--- NOTE | 2019-12-13 12:54 | PN ---
Progress Note, Physician History of Present Illness: Pt seen/ examined . chart is reviewed awake c/c- right side vision issues denies cpsob denies abd pain denies headache/ dizziness - Current Medication List Current Medications: Active Medications Aspirin (Asa -) 81 mg PO DAILY [facility] Last Admin: 12/13/19 10:17 Dose: 81 mg Documented by: Atorvastatin Calcium (Lipitor -) 80 mg PO HS [facility] Dabigatran (Pradaxa -) 150 mg PO DAILY [facility] Losartan Potassium (Cozaar -) 50 mg PO DAILY [facility] Last Admin: 12/13/19 10:17 Dose: 50 mg Documented by: Pantoprazole Sodium (Protonix -) 40 mg PO DAILY [facility] - Objective Vital Signs: Vital Signs Temperature 98.0 F 12/13/19 11:15 Pulse Rate 59 L 12/13/19 11:15 Respiratory Rate 19 12/13/19 11:15 Blood Pressure 150/59 L 12/13/19 11:15 O2 Sat by Pulse Oximetry (%) 100 12/13/19 07:39 Constitutional: Yes: No Distress, Calm, Obese Eyes: Yes: Conjunctiva Clear Neck: Yes: Supple Cardiovascular: Yes: Pulse Irregular Respiratory: Yes: CTA Bilaterally Gastrointestinal: Yes: Soft, Abdomen, Obese Edema: No Neurological: Yes: Alert, Other (right side -- visual field defects) Psychiatric: Yes: Alert Labs: CBC, BMP 12/12/19 21:40 12/12/19 21:40 INR, PTT INR 1.19 (0.83-1.09) H 12/12/19 21:40 Problem List - Problems (1) Vision loss of right eye Code(s): H54.61 - UNQUALIFIED VISUAL LOSS, RIGHT EYE, NORMAL VISION LEFT EYE (2) Bradycardia Code(s): R00.1 - BRADYCARDIA, UNSPECIFIED (3) Afib Code(s): I48.91 - UNSPECIFIED ATRIAL FIBRILLATION Qualifiers: Atrial fibrillation type: longstanding persistent Qualified Code(s): I48.11 - Longstanding persistent atrial fibrillation (4) HTN (hypertension) Code(s): I10 - ESSENTIAL (PRIMARY) HYPERTENSION Qualifiers: Hypertension type: essential hypertension Qualified Code(s): I10 - Essential (primary) hypertension (5) Hypercholesteremia Code(s): E78.0 - PURE HYPERCHOLESTEROLEMIA * DO NOT USE * Assessment/Plan Admit tele MRI - Brain - Left side large Occipital area - non Hggic cva Neuro consult pending Continue same meds Continue Pradexa Cardilogy consult d/c lvonox Increase Lipitor 80 mg will follow
[2019-12-13] MEDS: DABIGATRAN ETEXILATE MESYLATE 150 MG CAPSULE PO SCH (14:45)
--- NOTE | 2019-12-13 18:01 | CON.CARD ---
Consult Consult Specialty:: cardiology Reason for Consultation:: acute CVA; uncontrolled HTN; elevated TNI - History of Present Illness Chief Complaint: Pt A&Ox3; OOB in chair; denies chest pain, weakness; + vision change History of Present Illness: Mr. Rodriguez is a 69 year old man (b. [place]) with a significant PMH of AFIB, GIB, HTN, HLD, CAD s/p Cath, TIA, YOSELIN on CPAP, morbid obesity s/p gastric bypass, acute/chronic alcoholism (2 bottles of wine on weekends; last drank 4 days ago), depression (exacerbated by the of his 26 yr old nai mills a few years ago), sedentary, who presents to the emergency department BIB family for confusion and vision changes that began at 7 pm today. As per , patient called her saying he was feeling unwell. When she arrived at home he was confused, diaphoretic, with R eye blurred vision, a&o x 1 (not location or time) all of which are new. Patient reports he last took his Pradaxa yesterday and missed his metoprolol today; however, on further questioning, he is ?often noncompliant to medications when he is depressed and has been drinking. Currently, he reports the blurry vision is still present but better than before. Patient denies any hx of cva. Allergies: NKDA Past surgical history: gastric bypass. L Ankle orthopedic Allergies: NKDA Past surgical history: gastric bypass. L Ankle orthopedic PMD: Formerly saw Dr. Rose; now sees Dr. Matthew Sage Reporting Developer: ? Dr. Melinda Walsh - Past Medical History [employer]ANDELIER MAKER: Yes: CVA Cardio/Vascular: Yes: AFIB, CAD, HTN, Hyperlipdemia Pulmonary: Yes: Sleep Apnea (on cpap) Gastrointestinal: Yes: GI Bleed (gastrc body Dieulafoy erosions endoclipped 02/15.), Other (bariatric gastric bypass, hyperplastic rectal polyp removed ) Renal/: Yes: Renal Calculi Psych: Yes: Anxiety Endocrine: Yes: Other (Morbid obesity) - Past Surgical History Past Surgical History: Yes: Bariatric Surgery (Gastric bypass at 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 History of Recent Travel: No Home Medications - Allergies Allergies/Adverse Reactions: Allergies Allergy/AdvReac Type Severity Reaction Status Date / Time No Known Allergies Allergy Verified 01/14/19 06:23 - Home Medications Home Medications: Ambulatory Orders Dabigatran Etexilate Mesylate [Pradaxa -] 150 mg PO DAILY 10/08/17 Pantoprazole Sodium [Protonix -] 40 mg PO DAILY 01/01/18 Atorvastatin Ca [Lipitor] 10 mg PO DAILY 01/14/19 Furosemide [Lasix] 40 mg PO DAILY 01/14/19 Losartan Potassium [Cozaar -] 50 mg PO DAILY 01/14/19 Metoprolol Tartrate [Lopressor] 100 mg PO BID 12/12/19 Vital Signs: Vital Signs Temperature 98.0 F 12/13/19 11:15 Pulse Rate 67 12/13/19 15:27 Respiratory Rate 19 12/13/19 11:15 Blood Pressure 174/98 H 12/13/19 15:27 O2 Sat by Pulse Oximetry (%) 100 12/13/19 07:39 - Other Data Labs, Other Data: CBC, BMP 12/12/19 21:40 12/12/19 21:40 INR, PTT INR 1.19 (0.83-1.09) H 12/12/19 21:40 Troponin, BNP 12/12/19 21:40 Troponin I 0.06 H Troponin, BNP 12/12/19 21:40 Troponin I 0.06 H Assessment/Plan Mr. Rodriguez is a 69 year old man (b. [place]) with a significant PMH of AFIB, GIB, HTN, HLD, CAD s/p Cath, diastolic CHF with mild , TIA, YOSELIN on CPAP, morbid obesity s/p gastric bypass, acute/chronic alcoholism (2 bottles of wine on weekends; last drank 4 days ago), depression (exacerbated by the of his 26 yr old daughter a few years ago; shows photos of him at her gravesite, and poems he has written for her), sedentary, who presents to the emergency department BIB family for confusion and vision changes that began at 7 pm today. 12/13/2019: Brain MRI: large nonhemorrhagic CVA left occipital lobe Mild elevation of TNI (noted since at least 2010). ECHO 12/2018: normal LVEF; mild biatrial enlargement; mild aortic stenosis (). Uncontrolled HTN LDL cholesterol: 114/triglycerides 175 (?non-fasting)/HDL 51 mg/dL. COVID pending AF Pl: Neurologic consult Telemetry; serial EKGs. Restart Pradaxa (and consider changing to a once-daily agent, e.g. rivaroxaban, for easier compliance); ? ASA (f/u neurologic recommendation). High-dose statin Hypertensive control; metoprolol for HR and BP. ECHO for LVEF, wall thickness and motion; chamber sizes; r/o progression of . Stress MIBI when stable, if recent workup has not been done (hx CAD-->coronary angiogram ? stent). Nightly CPAP; f/u YOSELIN, pulmonary status. Detox program (alcoholism) Aid with depression (pt says he stopped caring about himself when his daughter a few years ago) Nutrition consult (s/p gastric bypass >20 yrs ago; presently morbidly obese).
--- NOTE | 2019-12-13 21:08 | CONSULT ---
Consult - text type - Consultation Consultation Note: NEUROLOGY CONSULTATION is greatly appreciated: Events reviewed and discussed with ED MD and RN. Patient examined. This 69 yo RH man with h/o HTN, Chol, CAD, AFib, edema, YOSELIN on CPAP and chronic obesity, s/p bariatric surgery. Maintained on: Pradoxa, metoprolol, losartan, furosamide, atorvastatin, pantoprazole. Noticed loss of vision "I couldn't see a man on the right side and I had to turn all the way to the right to see him." Not associated with headache, weakness, sensory changes or change in gait. Today, he denies speech changes. Admitted last PM with confusion and diaphoresis. Pt acknowledges noncompliance with meds including Pradoxa. Initial CT (reviewed) is negative for acute CVA but MRI this AM (reviewed) confirms a subacute left occipital CVA. Carotid duplex doppler- essentially normal POLLY: Obese, no bruits, Cor 50-60, irreg. No bruits. BP was 188/100 on admission NEURO: Awake, alert, Ox3. Fluent speech Dense right homonomous hemianopsia. No facial. Full EOM's, gag normal No drift or tremor. Normal strength, bulk tone and reflexes except reduced or absent AJ's. No FTN dystaxia Sensory Normal Gait deferred. IMP: left occipital CVA with right homonomous hemianopsia Distal MCA territory suggests possible embolic etiology. Noncompliance with Pradoxa could contribute SUGGEST: Continue Pradoxa if cardiology agrees. Admit to telemetry. Normalize BP Mobilize OO Bed to chair and ambulate with PT NO DRIVING until driving reeduction program is completed. Thank you very much, Naeem Juarez MD
[2019-12-13] MEDS ORDERED: ATORVASTATIN CA 80 MG TABLET (FP) PO SCH (22:00)
[2019-12-13] MEDS ORDERED: METOPROLOL TARTRATE 50 MG TABLET (FP) PO ONE (22:43)
[2019-12-13] MEDS: ATORVASTATIN CA 80 MG TABLET (FP) PO SCH (23:22)
[2019-12-13] MEDS ORDERED: amLODIPine BESYLATE 5 MG TABLET (FP) PO ONE (23:47)
[2019-12-14] MEDS ORDERED: ACETAMINOPHEN 325 MG TABLET (FP) PO PRN (00:59)
[2019-12-14 07:28] LABS: HEMATOCRIT 36.3 % (35.4-49); MCH 32.3 pg (25.7-33.7); MCHC 33.1 g/dl (32.0-35.9); MEAN CELL VOLUME 97.5 fl (80-96); MEAN PLT VOLUME 9.1 fl (7.5-11.1); PLATELET COUNT 186 K/MM3 (134-434); RBC 3.73 M/mm3 (4.00-5.60); RDW 13.5 % (11.9-15.9); WHITE BLOOD COUNT 4.6 K/mm3 (4.0-10.0)
[2019-12-14 08:25] LABS: BLOOD UREA NITROGEN 19.1 mg/dL (7-18); CALCIUM 8.4 mg/dL (8.5-10.1); CREATININE 0.8 mg/dL (0.55-1.3); PHOSPHOROUS 3.8 mg/dL (2.5-4.9)
[2019-12-14] MEDS ORDERED: PT OWN MED DRAWER 7, Y5N ONE ×2 (09:00→21:18)
[2019-12-14] MEDS: DABIGATRAN ETEXILATE MESYLATE 150 MG CAPSULE PO SCH ×2 (09:14→21:57)
[2019-12-14] MEDS: ASPIRIN 81 MG CHEWABLE TABLETS PO SCH (09:14)
[2019-12-14] MEDS: LOSARTAN POTASSIUM 50 MG TABLET (FP) PO SCH (09:14)
[2019-12-14] MEDS: PANTOPRAZOLE 40 MG TABLET PO SCH (09:14)
--- NOTE | 2019-12-14 09:30 | PN ---
Progress Note, Physician History of Present Illness: Confusion and vision changes improving. Noncompliant with Pradaxa as he's taking once daily, prefers to remain in Pradaxa as he has plenty at home, Last office visit 02/04/2019. - Current Medication List Current Medications: Active Medications Acetaminophen (Tylenol -) 650 mg PO Q6H PRN PRN Reason: PAIN LEVEL 4 - 6 Last Admin: 12/14/19 01:43 Dose: 650 mg Documented by: Aspirin (Asa -) 81 mg PO DAILY [facility] Last Admin: 12/14/19 09:14 Dose: 81 mg Documented by: Atorvastatin Calcium (Lipitor -) 80 mg PO HS [facility] Last Admin: 12/13/19 23:22 Dose: 80 mg Documented by: Dabigatran (Pradaxa -) 150 mg PO DAILY [facility] Last Admin: 12/14/19 09:14 Dose: 150 mg Documented by: Losartan Potassium (Cozaar -) 50 mg PO DAILY [facility] Last Admin: 12/14/19 09:14 Dose: 50 mg Documented by: Pantoprazole Sodium (Protonix -) 40 mg PO DAILY [facility] Last Admin: 12/14/19 09:14 Dose: 40 mg Documented by: - Objective Vital Signs: Vital Signs Temperature 98.4 F 12/14/19 09:10 Pulse Rate 65 12/14/19 09:10 Respiratory Rate 19 12/14/19 09:10 Blood Pressure 172/102 H 12/14/19 09:10 O2 Sat by Pulse Oximetry (%) 97 12/14/19 09:10 Constitutional: Yes: No Distress, Calm Neck: Yes: Supple Cardiovascular: Yes: Pulse Irregular Respiratory: Yes: Regular, CTA Bilaterally Gastrointestinal: Yes: Normal Bowel Sounds, Soft, Abdomen, Obese Edema: No Labs: CBC, BMP 12/14/19 06:25 12/14/19 06:25 INR, PTT INR 1.19 (0.83-1.09) H 12/12/19 21:40 - ....Imaging EKG: Report Reviewed (Tele: Rate-controlled afib) Problem List - Problems (1) Noncompliance with medication regimen Code(s): Z91.14 - PATIENT'S OTHER NONCOMPLIANCE WITH MEDICATION REGIMEN (2) Afib Code(s): I48.91 - UNSPECIFIED ATRIAL FIBRILLATION Qualifiers: Atrial fibrillation type: longstanding persistent Qualified Code(s): I48.11 - Longstanding persistent atrial fibrillation (3) CAD (coronary artery disease) Code(s): I25.10 - ATHSCL HEART DISEASE OF [place] CORONARY ARTERY W/O ANG PCTRS Qualifiers: Coronary Disease-Associated Artery/Lesion type: [place] artery [place] vs. 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 Acute left occiptal stroke with right homonomous hemianopsia in context of Pradaxa noncompliance. Distal MCA territory suggests possible embolic etiology 2. Afib 3. H/o GIB with Dileufoy lesion 4. HTN 5. HLD 6. Diastolic dysfunction with mild 7. OSAS on cpap 8. Morbid obesity s/p gastric bypass 9. ETOH dependence 10. CAD P:1. Emphasized importance of proper dosing Pradaxa 150 bid with GI protection, d/c ASA 81 qd as CAD is stable and h/o Diluefoy lesion, Lipitor 80 qd, losartan 50 qd, resumed Lopressor 50 bid with uptitration as tolerated 2. F/u ECHO for LVEF, wall thickness and motion; chamber sizes; r/o progression of . 3. Eventual Stress MIBI when stable 4. cpap nightly, O2 as needed
--- NOTE | 2019-12-14 09:53 | CONSULT ---
Admitting History and Physical - Admission History of Present Illness: 69 yo RH man with h/o HTN, Chol, CAD, AFib, edema, YOSELIN on CPAP and chronic obesity, s/p bariatric surgery admitted with visual changes. MRI subacute left occipital CVA. NEURO IMP: left occipital CVA with right homonomous hemianopsia Passed Dysphagia screen. On clear liquid diet. Selected Entries 12/14/19 12/14/19 12/14/19 00:55 02:00 06:00 Temperature 99.3 F 98.4 F 98.3 F Pulse Rate 69 75 66 Blood Pressure 192/97 H 156/69 127/66 12/14/19 09:10 Temperature 98.4 F Pulse Rate 65 Blood Pressure 172/102 H Laboratory Tests 12/13/19 12/14/19 01:00 06:25 WBC 4.6 COVID-19 ([facility]) Pending Limitations to Obtaining History: No Limitations - Past Medical History FREEZER PERSON: Yes: CVA Cardiovascular: Yes: AFIB, CAD, HTN, Hyperlipdemia Pulmonary: Yes: Sleep Apnea (on cpap) Gastrointestinal: Yes: GI Bleed (gastrc body Dieulafoy erosions endoclipped 02/15.), Other (bariatric gastric bypass, hyperplastic rectal polyp removed 02/15) Renal/: Yes: Renal Calculi Psych: Yes: Anxiety Endocrine: Yes: Other (Morbid obesity) - Past Surgical History Past Surgical History: Yes: Bariatric Surgery (Gastric bypass at 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 History of Recent Travel: No History - Admission Reason For Visit: HEADACHE/LEFT/R/EYES/BLINDNESS - Diagnostics X-ray: Report Reviewed CT Scan: Report Reviewed MRI: Report Reviewed - General Mental Status: Alert and Oriented, Awake and Alert, Able to Follow Commands Attention: Intact Ability to Follow Directions: Excellent Head/Neck Control: WFL - Hearing Hearing: Normal Speech Evaluation - Communication Primary Language: MALTESE Communication: Yes: Within Normal Limits - Speech Characteristics Articulation: Yes: Precise - Swallow Evaluation/Bedside Assessment Current Nutritional Intake: Clear Liquids Oral Secretions: Yes: WFL Laryngeal Elevation: WFL Laryngeal Movement: Able to Palpate Chewing: WFL Oral Prep Time: WFL A-P Transit: WFL Pocketing: None Timing of Swallow: WFL Coughing/Throat Clear: No Change in Voice: No Recommendations - Speech Evaluation, Impression/Plan Impression: sp/sw/lang/cognition intact - Dysphagia Impressions/Plan Swallowing Skills: WFL Dysphagia Impressions: No Impairment *Silent aspiration: cannot be R/O at bedside - Recommendations Diet Consistency: Regular Medication Administration: Whole with water Liquids: Thin Liquids
--- NOTE | 2019-12-14 10:44 | EKG ---
Test Reason : Blood Pressure : / mmHG Vent. Rate : 070 BPM Atrial Rate : 105 BPM P-R Int : 000 ms QRS Dur : 136 ms QT Int : 462 ms P-R-T Axes : 000 045 -25 degrees QTc Int : 498 ms ATRIAL FIBRILLATION RIGHT BUNDLE BRANCH BLOCK T WAVE ABNORMALITY, CONSIDER LATERAL ISCHEMIA ABNORMAL ECG WHEN COMPARED WITH ECG OF 12-DEC-2019 22:18, NO SIGNIFICANT CHANGE WAS FOUND Confirmed by ABHAY MINAYA MD ([id number]) on 12/14/2019 10:44:42 AM Referred By: Carlos CHUNG Confirmed By:ABHAY MINAYA MD
--- NOTE | 2019-12-14 10:59 | EKG ---
Test Reason : Blood Pressure : / mmHG Vent. Rate : 048 BPM Atrial Rate : 044 BPM P-R Int : 000 ms QRS Dur : 136 ms QT Int : 478 ms P-R-T Axes : 000 024 -23 degrees QTc Int : 427 ms ATRIAL FIBRILLATION WITH SLOW VENTRICULAR RESPONSE RIGHT BUNDLE BRANCH BLOCK T WAVE ABNORMALITY, CONSIDER LATERAL ISCHEMIA ABNORMAL ECG WHEN COMPARED WITH ECG OF 14-JAN-2019 06:29, VENT. RATE HAS DECREASED BY 28 BPM T WAVE VARIATION Confirmed by ABHAY MINAYA MD ([id number]) on 12/14/2019 10:58:47 AM Referred By: Confirmed By:ABHAY MINAYA MD
[2019-12-14] MEDS ORDERED: metoPROLOL SUCCINATE 25 MG TAB.SR.24H (FP) PO SCH (11:30)
--- NOTE | 2019-12-14 11:45 | PN ---
Progress Note, Physician History of Present Illness: Pt seen/ examined . chart is reviewed awake. comfortable all f/u noted reports vision significantly improved no complains today denies cp/ sob denies abd pain denies headache/ dizziness - Current Medication List Current Medications: Active Medications Acetaminophen (Tylenol -) 650 mg PO Q6H PRN PRN Reason: PAIN LEVEL 4 - 6 Last Admin: 12/14/19 01:43 Dose: 650 mg Documented by: Atorvastatin Calcium (Lipitor -) 80 mg PO HS [facility] Last Admin: 12/13/19 23:22 Dose: 80 mg Documented by: Dabigatran (Pradaxa -) 150 mg PO BID [facility] Losartan Potassium (Cozaar -) 50 mg PO DAILY [facility] Last Admin: 12/14/19 09:14 Dose: 50 mg Documented by: Metoprolol Tartrate (Lopressor -) 50 mg PO BID [facility] Pantoprazole Sodium (Protonix -) 40 mg PO DAILY [facility] Last Admin: 12/14/19 09:14 Dose: 40 mg Documented by: - Objective Vital Signs: Vital Signs Temperature 98.4 F 12/14/19 09:10 Pulse Rate 65 12/14/19 09:10 Respiratory Rate 19 12/14/19 09:10 Blood Pressure 172/102 H 12/14/19 09:10 O2 Sat by Pulse Oximetry (%) 97 12/14/19 09:10 Constitutional: Yes: No Distress Eyes: Yes: Conjunctiva Clear Neck: Yes: Supple. No: Tenderness Cardiovascular: Yes: Pulse Irregular. No: Regular Rate and Rhythm Respiratory: Yes: CTA Bilaterally Gastrointestinal: Yes: Soft, Abdomen, Obese Edema: No Neurological: Yes: Alert, Cran Nerves II-XII Intact ...Motor Strength: WNL Psychiatric: Yes: Alert Labs: CBC, BMP 12/14/19 06:25 12/14/19 06:25 INR, PTT INR 1.19 (0.83-1.09) H 12/12/19 21:40 Problem List - Problems (1) Vision loss of right eye Code(s): H54.61 - UNQUALIFIED VISUAL LOSS, RIGHT EYE, NORMAL VISION LEFT EYE (2) Bradycardia Code(s): R00.1 - BRADYCARDIA, UNSPECIFIED (3) Afib Code(s): I48.91 - UNSPECIFIED ATRIAL FIBRILLATION Qualifiers: Atrial fibrillation type: longstanding persistent Qualified Code(s): I48.11 - Longstanding persistent atrial fibrillation (4) HTN (hypertension) Code(s): I10 - ESSENTIAL (PRIMARY) HYPERTENSION Qualifiers: Hypertension type: essential hypertension Qualified Code(s): I10 - Essential (primary) hypertension (5) Hypercholesteremia Code(s): E78.0 - PURE HYPERCHOLESTEROLEMIA * DO NOT USE * Assessment/Plan Acute right Occipital CVA likely [place] Compliance issues Continue same meds Continue Pradexa echo monitor BP cpap at night lose weight Advised not to drive-- Pt says has no license and never drove in [place] will follow
[2019-12-14] MEDS ORDERED: RIVAROXABAN 20 MG TABLET PO SCH (18:00)
[2019-12-14] MEDS: METOPROLOL TARTRATE 50 MG TABLET (FP) PO SCH (21:57)
[2019-12-14] MEDS: ATORVASTATIN CA 80 MG TABLET (FP) PO SCH (21:57)
[2019-12-14] MEDS ORDERED: DABIGATRAN ETEXILATE MESYLATE 150 MG CAPSULE PO SCH (22:00)
[2019-12-15] MEDS ORDERED: PT OWN MED DRAWER 7, Y5N ONE ×2 (09:11→21:32)
[2019-12-15] MEDS: PANTOPRAZOLE 40 MG TABLET PO SCH (09:22)
[2019-12-15] MEDS: DABIGATRAN ETEXILATE MESYLATE 150 MG CAPSULE PO SCH ×2 (09:22→23:07)
[2019-12-15] MEDS: LOSARTAN POTASSIUM 50 MG TABLET (FP) PO SCH (09:22)
[2019-12-15] MEDS: METOPROLOL TARTRATE 50 MG TABLET (FP) PO SCH ×2 (09:22→21:38)
--- NOTE | 2019-12-15 09:50 | PN ---
Progress Note, Physician Chief Complaint: Events noted States that his stools were dark in color History of Present Illness: Patient was seen and examined. Awake and alert. Chart was reviewed Denies chest pain, SOB or palpitations - Current Medication List Current Medications: Active Medications Acetaminophen (Tylenol -) 650 mg PO Q6H PRN PRN Reason: PAIN LEVEL 4 - 6 Last Admin: 12/14/19 01:43 Dose: 650 mg Documented by: Atorvastatin Calcium (Lipitor -) 80 mg PO HS [facility] Last Admin: 12/14/19 21:57 Dose: 80 mg Documented by: Dabigatran (Pradaxa -) 150 mg PO BID [facility] Last Admin: 12/15/19 09:22 Dose: 150 mg Documented by: Losartan Potassium (Cozaar -) 50 mg PO DAILY [facility] Last Admin: 12/15/19 09:22 Dose: 50 mg Documented by: Metoprolol Tartrate (Lopressor -) 50 mg PO BID [facility] Last Admin: 12/15/19 09:22 Dose: 50 mg Documented by: Pantoprazole Sodium (Protonix -) 40 mg PO DAILY [facility] Last Admin: 12/15/19 09:22 Dose: 40 mg Documented by: - Objective Vital Signs: Vital Signs Temperature 98.6 F 12/15/19 09:05 Pulse Rate 64 12/15/19 09:05 Respiratory Rate 20 12/15/19 09:05 Blood Pressure 126/74 12/15/19 09:05 O2 Sat by Pulse Oximetry (%) 95 12/15/19 09:05 Neck: Yes: Supple Cardiovascular: Yes: Pulse Irregular, S1, S2 Respiratory: Yes: CTA Bilaterally Gastrointestinal: Yes: Normal Bowel Sounds, Soft. No: Tenderness Edema: No Additional Findings/Remarks: - Review of Systems Constitutional: denies: Chills, Fever Cardiovascular: denies: Shortness of Breath. denies: Chest Pain, Palpitations Respiratory: denies: SOB. denies: Cough, Hemoptysis, Orthopnea, PND Gastrointestinal: denies: Abdominal Pain, Constipation, Diarrhea, ? Melena, (-) Nausea, history of Rectal Bleeding, (-) Vomiting Musculoskeletal: denies: Joint Pain. denies: Back Pain Neurological: denies: Dizziness, Headache. denies: Change in Speech, Confusion, Seizure, Syncope Labs: CBC, BMP 12/14/19 06:25 12/14/19 06:25 Problem List - Problems (1) Acute on chronic diastolic heart failure Code(s): I50.33 - ACUTE ON CHRONIC DIASTOLIC (CONGESTIVE) HEART FAILURE (2) Demand ischemia Code(s): I24.8 - OTHER FORMS OF ACUTE ISCHEMIC HEART DISEASE (3) Afib Code(s): I48.91 - UNSPECIFIED ATRIAL FIBRILLATION Qualifiers: Atrial fibrillation type: longstanding persistent Qualified Code(s): I48.11 - Longstanding persistent atrial fibrillation (4) CAD (coronary artery disease) Code(s): I25.10 - ATHSCL HEART DISEASE OF [place] CORONARY ARTERY W/O ANG PCTRS Qualifiers: Coronary Disease-Associated Artery/Lesion type: [place] artery [place] vs. 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 Code(s): K31.82 - DIEULAFOY LESION (HEMORRHAGIC) OF STOMACH AND DUODENUM (7) Gastric bypass status for obesity Code(s): Z98.84 - BARIATRIC SURGERY STATUS (8) HTN (hypertension) Code(s): I10 - ESSENTIAL (PRIMARY) HYPERTENSION Qualifiers: Hypertension type: essential hypertension Qualified Code(s): I10 - Essential (primary) hypertension (9) Hypercholesteremia Code(s): E78.0 - PURE HYPERCHOLESTEROLEMIA * DO NOT USE * (10) Obstructive sleep apnea hypopnea, severe Code(s): G47.33 - OBSTRUCTIVE SLEEP APNEA (ADULT) (PEDIATRIC) (11) TIA (transient ischemic attack) Code(s): G45.9 - TRANSIENT CEREBRAL ISCHEMIC ATTACK, UNSPECIFIED Qualifiers: Assessment/Plan 1. Acute left occiptal stroke with right homonomous hemianopsia in context of Pradaxa noncompliance. Distal MCA territory suggests possible embolic etiology 2. Persistent AF 3. History of GI bleed with Dileufoy lesion ?recurrent bleed 4. HTN 5. Hypercholesterolemia 6. Diastolic dysfunction with mild 7. OSAS on CPAP 8. Morbid obesity s/p gastric bypass 9. ETOH dependence 10. CAD PLAN: 1. Continue Pradaxa 150 mg BID unless strong evidence of active GI bleed. ASA has been stopped. Continue Lipitor 80 mg QD, Losartan 50 mg QD and Lopressor 50 mg BID as tolerated 2. Echocardiography and eventual stress MIBI can be done as outpatient in our office (last seen January [address] Pelon Hill, [facility]) 3. Closely monitor H/H (ordered for AM blood draw). GI input to follow 4. CPAP nightly and O2 as needed Further plans are to follow Pelon Hill MD
--- NOTE | 2019-12-15 10:59 | PN ---
Progress Note, [employer] - Note Progress Note: Selected Entries 12/15/19 12/15/19 12/15/19 01:59 05:00 09:05 Breakfast Diet Tolerated Temperature 98.8 F 98.3 F 98.6 F Pulse Rate 66 64 64 Blood Pressure 116/63 154/90 126/74 12/15/19 09:25 Breakfast 100% Diet Tolerated Well Temperature Pulse Rate Blood Pressure Laboratory Tests 12/13/19 01:00 COVID-19 ([facility]) Not detected On reg diet/thin liquids with good tolerance Some persistent visual deficits reported in right eye No further f/u indicated.
--- NOTE | 2019-12-15 14:09 | PN ---
Progress Note (short form) - Note Progress Note: has black tarry stools yesterday and today per RN Pt denies abdominal pain No SOB no chest pain Vital Signs - 24 hr 12/14/19 12/14/19 12/14/19 15:00 18:00 21:00 Temperature 98.6 F 99 F Pulse Rate 87 74 Respiratory 20 20 18 Rate Blood Pressure 140/69 143/94 O2 Sat by Pulse 96 95 Oximetry (%) 12/14/19 12/15/19 12/15/19 22:00 01:59 04:25 Temperature 98.9 F 98.8 F Pulse Rate 81 66 Respiratory 20 18 Rate Blood Pressure 178/100 H 116/63 O2 Sat by Pulse 96 Oximetry (%) 12/15/19 12/15/19 12/15/19 05:00 09:00 09:05 Temperature 98.3 F 98.6 F Pulse Rate 64 64 Respiratory 20 20 Rate Blood Pressure 154/90 126/74 O2 Sat by Pulse 95 95 Oximetry (%) 12/15/19 13:59 Temperature 98.6 F Pulse Rate 77 Respiratory 16 Rate Blood Pressure 140/82 O2 Sat by Pulse Oximetry (%) Current Medications Generic Name Dose Route Start Last Admin Trade Name Freq PRN Reason Stop Dose Admin Acetaminophen 650 mg 12/14/19 00:59 12/14/19 01:43 Tylenol - PO 650 mg Q6H PRN Administration PAIN LEVEL 4 - 6 Atorvastatin Calcium 80 mg 12/13/19 22:00 12/14/19 21:57 Lipitor - PO 80 mg HS VALERIE Administration Dabigatran 150 mg 12/14/19 22:00 12/15/19 09:22 Pradaxa - PO 150 mg BID VALERIE Administration Losartan Potassium 50 mg 12/13/19 10:00 12/15/19 09:22 Cozaar - PO 50 mg DAILY VALERIE Administration Metoprolol Tartrate 50 mg 12/14/19 22:00 12/15/19 09:22 Lopressor - PO 50 mg BID VALERIE Administration Pantoprazole Sodium 40 mg 12/14/19 10:00 12/15/19 09:22 Protonix - PO 40 mg DAILY VALERIE Administration Laboratory Results - last 24 hr 12/15/19 08:25 Stool Occult Blood Positive S1 s2 Irregular Lungs clear Abd- soft, obese, NT No edema PLAN GI Blled H/L Dieulafoy lesion acute occipital CVA Obesity YOSELIN --- on protonix -- on pradaxa -- GI consult -- continue with rate control with Metoprolol Problem List - Problems (1) Noncompliance with medication regimen Code(s): Z91.14 - PATIENT'S OTHER NONCOMPLIANCE WITH MEDICATION REGIMEN (2) Vision loss of right eye Code(s): H54.61 - UNQUALIFIED VISUAL LOSS, RIGHT EYE, NORMAL VISION LEFT EYE (3) Afib Code(s): I48.91 - UNSPECIFIED ATRIAL FIBRILLATION Qualifiers: Atrial fibrillation type: longstanding persistent Qualified Code(s): I48.11 - Longstanding persistent atrial fibrillation (4) CVA (cerebrovascular accident) Code(s): I63.9 - CEREBRAL INFARCTION, UNSPECIFIED Qualifiers: CVA mechanism: embolism Precerebral and cerebral artery: middle cerebral artery Laterality of affected vessel: bilateral Qualified Code(s): I63.413 - Cerebral infarction due to embolism of bilateral middle cerebral arteries (5) 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
--- NOTE | 2019-12-15 19:36 | PN ---
Progress Note (short form) - Note Progress Note: NEUROLOGY PROGRESS: Events reviewed and discussed with Dr. Washington. On Pradoxa 150 BID for A Fib and presumed cardioembolic CVA, Tarry stools and slow GI bleed, etiology uncertain. Dr. Washington aware of prior GI bleed(s?) BP's still up to 154/90 today. Pt believes vision "is slowly improving." Patient does not drive, his "drives him everywhere." POLLY: Obese. No bruits. Cor irreg. NEURO: Dense right homonomous hemianopsia. IMP:S/P left occipital CVA most likely cardioembolic. Non-compliance with NOVAC. SUGGEST: Pt will require long-term anticoagulation If GI bleeding persists, I would consider evaluation and Rx prior to D/C. Thank you very much, Naeem Juarez MD
--- NOTE | 2019-12-15 20:43 | CON.GI ---
Consult Consult Specialty:: Gastroenterology Referred by:: Dr Abbey Kennedy Reason for Consultation:: Melena - History of Present Illness Chief Complaint: Acute left visual field cut and altered mental status History of Present Illness: 69M presents with left homonymous hemianopsia due to a left occiital CVA and altered mental staus. His mental status s back to baseline. This morning he had an episode of melena. He has a history of recurrent UGI bleeding and had a Dieulafoy erosion bleed requiring endoclipping by Dr Gross in 02/15. At that time he did both and EGD and a colonoscopy which initially revealed no bleeding source but repeat EGD revealed the Dieulafoy at his gastric bypass anastomosis. The colonoscopy led to the removal of a hyperplastic rectal polyp. He had a subsequent negative capsule endoscopy by Dr Salomon. I saw him for melena in 2018 when EGD on 10/10/17 revealed a moderate sized hiatal hernia with severe erosive esophagitis. The anastomotic clip was found but no Dieulafoy or active bleeding site was identified. Despite this Alfonso takes Advil PM qhs which contains 200mg of ibuprofen. He is on Pradaxa but has issues with medication compliance. 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: CVA (had previous transient RUE weakenss and now right homonymous hemianopsia with L occiptal CVA) Cardio/Vascular: Yes: AFIB, CAD, HTN, Hyperlipdemia Pulmonary: Yes: Sleep Apnea (on cpap) Gastrointestinal: Yes: GERD (severe with HH on 10/16 EGD when residual endoclip was seen), GI Bleed (gastric bypass anastomosis Dieulafoy erosion endoclipped 02/15.), Other (bariatric gastric bypass, hyperplastic rectal polyp removed 02/15) Renal/: Yes: Renal Calculi Psych: Yes: Anxiety Endocrine: Yes: Other (Morbid obesity) - Past Surgical History Past Surgical History: Yes: Bariatric Surgery (Gastric bypass at [facility]), Colonoscopy, Upper Endoscopy Additional Surgical History: sinus surgery. 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 Place of : Other ([employer] [facility] [employer]) History of Recent Travel: No Home Medications - Allergies Allergies/Adverse Reactions: Allergies Allergy/AdvReac Type Severity Reaction Status Date / Time No Known Allergies Allergy Verified 01/14/19 06:23 - Home Medications Home Medications: Ambulatory Orders Dabigatran Etexilate Mesylate [Pradaxa -] 150 mg PO DAILY 10/08/17 Pantoprazole Sodium [Protonix -] 40 mg PO DAILY 01/01/18 Atorvastatin Ca [Lipitor] 10 mg PO DAILY 01/14/19 Furosemide [Lasix] 40 mg PO DAILY 01/14/19 Losartan Potassium [Cozaar -] 50 mg PO DAILY 01/14/19 Metoprolol Tartrate [Lopressor] 100 mg PO BID 12/12/19 Family Medical History Family Hx Cancer: Mother ( 69 pancreatic cancer), Daughter ( 29 ovarian cancer), Sister (ovarian cancer) Family Hx Nuerologic Problems: Father ( 82 of hemorrhagic CVA) Review of Systems - Review of Systems Constitutional: reports: No Symptoms Eyes: reports: Recent Change in Vision HENT: reports: No Symptoms Neck: reports: No Symptoms Cardiovascular: reports: Palpitations Respiratory: reports: Exercise Intolerance Gastrointestinal: reports: Indigestion, Melena Genitourinary: reports: No Symptoms Musculoskeletal: reports: Joint Pain Physical Exam-GI Vital Signs: Vital Signs Temperature 98.0 F 12/15/19 18:00 Pulse Rate 83 12/15/19 18:00 Respiratory Rate 18 12/15/19 18:00 Blood Pressure 135/75 12/15/19 18:00 O2 Sat by Pulse Oximetry (%) 94 L 12/15/19 18:00 CBC,CMP WBC 4.6 K/mm3 (4.0-10.0) 12/14/19 06:25 RBC 3.73 M/mm3 (4.00-5.60) L 12/14/19 06:25 Hgb 12.0 GM/dL (11.7-16.9) 12/14/19 06:25 Hct 36.3 % (35.4-49) 12/14/19 06:25 MCV 97.5 fl (80-96) H 12/14/19 06:25 MCH 32.3 pg (25.7-33.7) 12/14/19 06:25 MCHC 33.1 g/dl (32.0-35.9) 12/14/19 06:25 RDW 13.5 % (11.9-15.9) 12/14/19 06:25 Plt Count 186 K/MM3 (134-434) 12/14/19 06:25 MPV 9.1 fl (7.5-11.1) 12/14/19 06:25 Absolute Neuts (auto) 5.9 K/mm3 (1.5-8.0) 12/12/19 21:40 Neutrophils % 77.8 % (42.8-82.8) D 12/12/19 21:40 Lymphocytes % 13.1 % (8-40) D 12/12/19 21:40 Monocytes % 7.4 % (3.8-10.2) 12/12/19 21:40 Eosinophils % 1.1 % (0-4.5) 12/12/19 21:40 Basophils % 0.6 % (0-2.0) 12/12/19 21:40 Nucleated RBC % 0 % (0-0) 12/12/19 21:40 Sodium 138 mmol/L (136-145) 12/14/19 06:25 Potassium 4.0 mmol/L (3.5-5.1) 12/14/19 06:25 Chloride 103 mmol/L (98-107) 12/14/19 06:25 Carbon Dioxide 27 mmol/L (21-32) 12/14/19 06:25 Anion Gap 7 MMOL/L (8-16) L 12/14/19 06:25 BUN 19.1 mg/dL (7-18) H 12/14/19 06:25 Creatinine 0.8 mg/dL (0.55-1.3) 12/14/19 06:25 Est GFR (CKD-EPI)AfAm 106.38 12/14/19 06:25 Est GFR (CKD-EPI)NonAf 91.79 12/14/19 06:25 POC Glucometer 110 UNITS (80-120) 12/12/19 21:38 Random Glucose 98 mg/dL (74-106) 12/14/19 06:25 Lactic Acid 1.2 mmol/L (0.4-2.0) 12/12/19 21:40 Calcium 8.4 mg/dL (8.5-10.1) L 12/14/19 06:25 Phosphorus 3.8 mg/dL (2.5-4.9) 12/14/19 06:25 Magnesium 2.0 mg/dL (1.8-2.4) 12/14/19 06:25 Total Bilirubin 0.5 mg/dL (0.2-1) 12/12/19 21:40 AST 55 U/L (15-37) H 12/12/19 21:40 ALT 44 U/L (13-61) 12/12/19 21:40 Alkaline Phosphatase 98 U/L (45-117) 12/12/19 21:40 Creatine Kinase 212 U/L (26-308) 12/13/19 20:00 Creatine Kinase Index 1.6 % (0.0-5.0) 12/13/19 20:00 CK-MB (CK-2) 3.5 ng/mL (0.5-3.6) 12/13/19 20:00 Troponin I 0.05 ng/ml (0.00-0.05) 12/13/19 20:00 Total Protein 7.7 g/dl (6.4-8.2) 12/12/19 21:40 Albumin 4.0 g/dl (3.4-5.0) 12/12/19 21:40 Triglycerides 175 mg/dL (0-150) H 12/12/19 21:40 Cholesterol 193 mg/dL (50-200) 12/12/19 21:40 Total LDL Cholesterol 114 mg/dL (5-100) H 12/12/19 21:40 HDL Cholesterol 51 mg/dL (40-60) 12/12/19 21:40 Current Medications Generic Name Dose Route Start Last Admin Trade Name Freq PRN Reason Stop Dose Admin Acetaminophen 650 mg 12/14/19 00:59 12/14/19 01:43 Tylenol - PO 650 mg Q6H PRN Administration PAIN LEVEL 4 - 6 Atorvastatin Calcium 80 mg 12/13/19 22:00 12/14/19 21:57 Lipitor - PO 80 mg HS VALERIE Administration Dabigatran 150 mg 12/14/19 22:00 09/15/20 09:22 Pradaxa - PO 150 mg BID VALERIE Administration Losartan Potassium 50 mg 12/13/19 10:00 12/15/19 09:22 Cozaar - PO 50 mg DAILY VALERIE Administration Metoprolol Tartrate 50 mg 12/14/19 22:00 12/15/19 09:22 Lopressor - PO 50 mg BID VALERIE Administration Pantoprazole Sodium 40 mg 12/14/19 10:00 12/15/19 09:22 Protonix - PO 40 mg DAILY VALERIE Administration Constitutional: Yes: Calm Eyes: Yes: Conjunctiva Clear HENT: Yes: Atraumatic Neck: Yes: Trachea Midline Cardiovascular: Yes: Pulse Irregular Respiratory: Yes: CTA Bilaterally Gastrointestinal Inspection: Yes: Scars (healed vertical upper midline incision) ...Auscultate: Yes: Normoactive Bowel Sounds ...Palpate: Yes: Soft, Other (nontender) ...Rectal Exam: Yes: Guaiac Positive (liquid black strongly guaiac positive stool, 2+ prostate, no masses) Neurological: Yes: Alert, Oriented Labs: CBC, BMP 12/14/19 06:25 12/14/19 06:25 INR, PTT INR 1.19 (0.83-1.09) H 12/12/19 21:40 Problem List - Problems (1) GI bleeding Problems reviewed: Yes Code(s): K92.2 - GASTROINTESTINAL HEMORRHAGE, UNSPECIFIED (2) Melena Problems reviewed: Yes Code(s): K92.1 - MELENA (3) Gastric hemorrhage due to Dieulafoy lesion of stomach Problems reviewed: Yes Code(s): K31.82 - DIEULAFOY LESION (HEMORRHAGIC) OF STOMACH AND DUODENUM (4) Hiatal hernia with GERD and esophagitis Code(s): K44.9 - DIAPHRAGMATIC HERNIA WITHOUT OBSTRUCTION OR GANGRENE; K21.0 - GASTRO-ESOPHAGEAL REFLUX DISEASE WITH ESOPHAGITIS (5) Morbid obesity due to excess calories Code(s): E66.01 - MORBID (SEVERE) OBESITY DUE TO EXCESS CALORIES (6) Occipital infarction Code(s): I63.9 - CEREBRAL INFARCTION, UNSPECIFIED (7) AMS (altered mental status) Code(s): R41.82 - ALTERED MENTAL STATUS, UNSPECIFIED Qualifiers: Altered mental status type: unspecified Qualified Code(s): R41.82 - Altered mental status, unspecified (8) Acute on chronic diastolic heart failure Code(s): I50.33 - ACUTE ON CHRONIC DIASTOLIC (CONGESTIVE) HEART FAILURE (9) Afib Code(s): I48.91 - UNSPECIFIED ATRIAL FIBRILLATION Qualifiers: Atrial fibrillation type: longstanding persistent Qualified Code(s): I48.11 - Longstanding persistent atrial fibrillation (10) CAD (coronary artery disease) Code(s): I25.10 - ATHSCL HEART DISEASE OF [place] CORONARY ARTERY W/O ANG PCTRS Qualifiers: Coronary Disease-Associated Artery/Lesion type: [place] artery [place] vs. transplanted heart: [place] heart Associated angina: without angina Qualified Code(s): I25.10 - Atherosclerotic heart disease of [place] coronary artery without angina pectoris (11) CVA (cerebrovascular accident) Code(s): I63.9 - CEREBRAL INFARCTION, UNSPECIFIED Qualifiers: CVA mechanism: embolism Precerebral and cerebral artery: middle cerebral artery Laterality of affected vessel: bilateral Qualified Code(s): I63.413 - Cerebral infarction due to embolism of bilateral middle cerebral arteries (12) Gastric bypass status for obesity Code(s): Z98.84 - BARIATRIC SURGERY STATUS (13) HTN (hypertension) Code(s): I10 - ESSENTIAL (PRIMARY) HYPERTENSION Qualifiers: Hypertension type: essential hypertension Qualified Code(s): I10 - Essential (primary) hypertension (14) Hypercholesteremia Code(s): E78.0 - PURE HYPERCHOLESTEROLEMIA * DO NOT USE * (15) Hyperplastic rectal polyp Code(s): K62.1 - RECTAL POLYP (16) Obstructive sleep apnea hypopnea, severe Code(s): G47.33 - OBSTRUCTIVE SLEEP APNEA (ADULT) (PEDIATRIC) Assessment/Plan IMpression: - Given his NSAID usage qhs I suspect bleeding from an NSAID ulcer but given his personal history this could be bleeding from a recurrent Dieulafoy erosion or GERD. I have discussed the case with Dr Juarez who will need to start an additional anticoagulation agent but this decision will be based on the etiology of bleeding. The benefits of this information outweigh the risks given Alfonso's clinical history and situation. I have discussed the risks of EGD under MAC with Alfonso in detail which include a recurrence of his CVA as well as perforation and hemorrhage. He has granted an informed consent to proceed and I will attempt to do this tomorrow. Given the Pradaxa on board the interventions will be limited. - Personal h/o gastric bypass bariatric surgery - Personal h/o hyperplastic rectal polyp Plan: -- Pantoprazole drip -- NPO for EGD tomorrow -- Further recommendations to be based upon EGD findings
[2019-12-15] MEDS: ATORVASTATIN CA 80 MG TABLET (FP) PO SCH (21:38)
[2019-12-15] MEDS: PANTOPRAZOLE SODIUM 80 MG in SODIUM CHLORIDE 100 ML IVPB SCH (22:40)
[2019-12-16] MEDS: PANTOPRAZOLE SODIUM 80 MG in SODIUM CHLORIDE 100 ML IVPB SCH (07:20)
[2019-12-16 07:49] LABS: HEMATOCRIT 34.7 % (35.4-49); HEMOGLOBIN 11.4 GM/dL (11.7-16.9); MCH 32.3 pg (25.7-33.7); MCHC 32.9 g/dl (32.0-35.9); MEAN CELL VOLUME 98.2 fl (80-96); MEAN PLT VOLUME 9.6 fl (7.5-11.1); PLATELET COUNT 184 K/MM3 (134-434); RBC 3.54 M/mm3 (4.00-5.60); RDW 13.5 % (11.9-15.9); WHITE BLOOD COUNT 4.8 K/mm3 (4.0-10.0)
[2019-12-16 08:10] LABS: CALCIUM 8.2 mg/dL (8.5-10.1); POTASSIUM 3.9 mmol/L (3.5-5.1)
[2019-12-16] MEDS ORDERED: PT OWN MED DRAWER 7, Y5N ONE (10:31)
[2019-12-16] MEDS: LOSARTAN POTASSIUM 50 MG TABLET (FP) PO SCH (10:35)
[2019-12-16] MEDS: METOPROLOL TARTRATE 50 MG TABLET (FP) PO SCH (10:35)
--- NOTE | 2019-12-16 10:46 | PN ---
Progress Note, Physician History of Present Illness: Confusion and vision changes improving. Noncompliant with Pradaxa as he's taking once daily, prefers to remain in Pradaxa as he has plenty at home, developed melena, EGD shows resolving NSAID gastritis and no further bleeding. - Current Medication List Current Medications: Active Medications Acetaminophen (Tylenol -) 650 mg PO Q6H PRN PRN Reason: PAIN LEVEL 4 - 6 Last Admin: 12/14/19 01:43 Dose: 650 mg Documented by: Atorvastatin Calcium (Lipitor -) 80 mg PO HS [facility] Last Admin: 12/15/19 21:38 Dose: 80 mg Documented by: Dabigatran (Pradaxa -) 150 mg PO BID [facility] Last Admin: 12/15/19 23:07 Dose: Not Given Documented by: Pantoprazole Sodium 80 mg/ (Sodium Chloride) 100 mls @ 10 mls/hr IVPB Q10H [facility] Stop: 12/18/19 21:12 Last Admin: 12/16/19 07:20 Dose: Not Given Documented by: Losartan Potassium (Cozaar -) 50 mg PO DAILY [facility] Last Admin: 12/16/19 10:35 Dose: 50 mg Documented by: Metoprolol Tartrate (Lopressor -) 50 mg PO BID [facility] Last Admin: 12/16/19 10:35 Dose: 50 mg Documented by: - Objective Vital Signs: Vital Signs Temperature 97.3 F L 12/16/19 06:00 Pulse Rate 67 12/16/19 06:00 Respiratory Rate 20 12/16/19 06:00 Blood Pressure 149/81 12/16/19 06:00 O2 Sat by Pulse Oximetry (%) 97 12/16/19 08:42 Constitutional: Yes: No Distress, Calm Neck: Yes: Supple Cardiovascular: Yes: Pulse Irregular Respiratory: Yes: Regular, CTA Bilaterally Gastrointestinal: Yes: Soft, Abdomen, Obese, Hypoactive Bowel Sounds Edema: No Labs: CBC, BMP 12/16/19 06:29 12/16/19 06:29 INR, PTT INR 1.19 (0.83-1.09) H 12/12/19 21:40 - ....Imaging EKG: Report Reviewed (Tele: Rate-controlled afib) Problem List - Problems (1) Noncompliance with medication regimen Code(s): Z91.14 - PATIENT'S OTHER NONCOMPLIANCE WITH MEDICATION REGIMEN (2) Afib Code(s): I48.91 - UNSPECIFIED ATRIAL FIBRILLATION Qualifiers: Atrial fibrillation type: longstanding persistent Qualified Code(s): I48.11 - Longstanding persistent atrial fibrillation (3) CAD (coronary artery disease) Code(s): I25.10 - ATHSCL HEART DISEASE OF [place] CORONARY ARTERY W/O ANG PCTRS Qualifiers: Coronary Disease-Associated Artery/Lesion type: [place] artery [place] vs. transplanted heart: [place] heart Associated angina: without angina Qualified Code(s): I25.10 - Atherosclerotic heart disease of [place] coronary artery without angina pectoris (4) CVA (cerebrovascular accident) Code(s): I63.9 - CEREBRAL INFARCTION, UNSPECIFIED Qualifiers: CVA mechanism: embolism Precerebral and cerebral artery: middle cerebral artery Laterality of affected vessel: bilateral Qualified Code(s): I63.413 - Cerebral infarction due to embolism of bilateral middle cerebral arteries (5) Dieulafoy lesion (hemorrhagic) of stomach and duodenum Code(s): K31.82 - DIEULAFOY LESION (HEMORRHAGIC) OF STOMACH AND DUODENUM (6) Gastric bypass status for obesity Code(s): Z98.84 - BARIATRIC SURGERY STATUS (7) HTN (hypertension) Code(s): I10 - ESSENTIAL (PRIMARY) HYPERTENSION Qualifiers: Hypertension type: essential hypertension Qualified Code(s): I10 - Essential (primary) hypertension (8) Hypercholesteremia Code(s): E78.0 - PURE HYPERCHOLESTEROLEMIA * DO NOT USE * (9) Acute gastritis Code(s): K29.00 - ACUTE GASTRITIS WITHOUT BLEEDING Qualifiers: Gastritis type: other gastritis Gastritis bleeding: with bleeding Qualified Code(s): K29.01 - Acute gastritis with bleeding Assessment/Plan 12/13/2019: Brain MRI: large nonhemorrhagic CVA left occipital lobe ECHO 12/2018: normal LVEF; mild biatrial enlargement; mild aortic stenosis () Assessment: 1. Acute left occiptal stroke with right homonomous hemianopsia in context of Pradaxa noncompliance. Distal MCA territory suggests possible embolic etiology 2. Persistent AF 3. History of GI bleed with [place] lesion at gastric bypass anastamotic site post endoclip and erosive esophagitis with recurrent bleed 2/2 NSAID gastritis 4. HTN 5. Hypercholesterolemia 6. Diastolic dysfunction with mild 7. OSAS on CPAP 8. Morbid obesity s/p gastric bypass 9. ETOH dependence 10. CAD 11. h/o hyperplastic rectal polyp PLAN: 1. Continue Pradaxa 150 mg BID with GI protection, NSAID avoidance. ASA has been stopped. Continue Lipitor 80 mg QD, Losartan 50 mg QD and Lopressor 50 mg BID as tolerated 2. Echocardiography and eventual stress MIBI can be done as outpatient in our office (last seen January [address] Pelon Hill, [facility]) 3. Closely monitor H/H on Pradaxa 4. CPAP nightly and O2 as needed 5. D/c planning as UGI bleed has resolved with f/u in office
[2019-12-16] MEDS ORDERED: LIDOCAINE VISCOUS 2% ORAL/TOP 20 ML UNIT-DOSE CUP ONE (11:31)
[2019-12-16] MEDS ORDERED: TETRACAINE/BENZOCAINE/BUTAMBEN 20 GM SPR TP ONE (11:31)
--- NOTE | 2019-12-16 12:16 | PN ---
Progress Note (short form) - Note Progress Note: GI Procedure NOte: Please see EGD report. Has a resolving NSAID gastritis and no further bleeding. Can continue A/C but should be maintained on PPI indefinitely. Instructed to avoid Advil PM and any NSAID containing drugs Problem List - Problems (1) Acute gastritis Code(s): K29.00 - ACUTE GASTRITIS WITHOUT BLEEDING (2) GI bleeding Code(s): K92.2 - GASTROINTESTINAL HEMORRHAGE, UNSPECIFIED (3) Melena Code(s): K92.1 - MELENA (4) Gastric hemorrhage due to Dieulafoy lesion of stomach Code(s): K31.82 - DIEULAFOY LESION (HEMORRHAGIC) OF STOMACH AND DUODENUM (5) Hiatal hernia with GERD and esophagitis Code(s): K44.9 - DIAPHRAGMATIC HERNIA WITHOUT OBSTRUCTION OR GANGRENE; K21.0 - GASTRO-ESOPHAGEAL REFLUX DISEASE WITH ESOPHAGITIS (6) Morbid obesity due to excess calories Code(s): E66.01 - MORBID (SEVERE) OBESITY DUE TO EXCESS CALORIES (7) Occipital infarction Code(s): I63.9 - CEREBRAL INFARCTION, UNSPECIFIED (8) AMS (altered mental status) Code(s): R41.82 - ALTERED MENTAL STATUS, UNSPECIFIED Qualifiers: Altered mental status type: unspecified Qualified Code(s): R41.82 - Altered mental status, unspecified (9) Acute on chronic diastolic heart failure Code(s): I50.33 - ACUTE ON CHRONIC DIASTOLIC (CONGESTIVE) HEART FAILURE (10) Afib Code(s): I48.91 - UNSPECIFIED ATRIAL FIBRILLATION Qualifiers: Atrial fibrillation type: longstanding persistent Qualified Code(s): I48.11 - Longstanding persistent atrial fibrillation (11) CAD (coronary artery disease) Code(s): I25.10 - ATHSCL HEART DISEASE OF [place] CORONARY ARTERY W/O ANG PCTRS Qualifiers: Coronary Disease-Associated Artery/Lesion type: [place] artery [place] vs. transplanted heart: [place] heart Associated angina: without angina Qualified Code(s): I25.10 - Atherosclerotic heart disease of [place] coronary artery without angina pectoris (12) CVA (cerebrovascular accident) Code(s): I63.9 - CEREBRAL INFARCTION, UNSPECIFIED Qualifiers: CVA mechanism: embolism Precerebral and cerebral artery: middle cerebral artery Laterality of affected vessel: bilateral Qualified Code(s): I63.413 - Cerebral infarction due to embolism of bilateral middle cerebral arteries (13) Gastric bypass status for obesity Code(s): Z98.84 - BARIATRIC SURGERY STATUS (14) HTN (hypertension) Code(s): I10 - ESSENTIAL (PRIMARY) HYPERTENSION Qualifiers: Hypertension type: essential hypertension Qualified Code(s): I10 - Essential (primary) hypertension (15) Hypercholesteremia Code(s): E78.0 - PURE HYPERCHOLESTEROLEMIA * DO NOT USE * (16) Hyperplastic rectal polyp Code(s): K62.1 - RECTAL POLYP (17) Obstructive sleep apnea hypopnea, severe Code(s): G47.33 - OBSTRUCTIVE SLEEP APNEA (ADULT) (PEDIATRIC)
--- NOTE | 2019-12-16 14:06 | DS ---
Physical Examination Vital Signs: Vital Signs Temperature 97.8 F 12/16/19 12:23 Pulse Rate 60 12/16/19 12:55 Respiratory Rate 18 12/16/19 12:55 Blood Pressure 142/86 12/16/19 12:55 O2 Sat by Pulse Oximetry (%) 98 12/16/19 12:55 Constitutional: Yes: No Distress Cardiovascular: Yes: Pulse Irregular Respiratory: Yes: Diminished Gastrointestinal: Yes: Normal Bowel Sounds, Soft, Abdomen, Obese. No: Tenderness Edema: No Neurological: Yes: Alert, Oriented Labs: CBC, BMP 12/16/19 06:29 12/16/19 06:29 Discharge Summary Problems reviewed: Yes Reason For Visit: HEADACHE/LEFT/R/EYES/BLINDNESS Current Active Problems AMS (altered mental status) (Acute) Acute gastritis (Acute) Dizziness (Acute) GI bleeding (Acute) Gastric hemorrhage due to Dieulafoy lesion of stomach (Acute) Hiatal hernia with GERD and esophagitis (Acute) Melena (Acute) Morbid obesity due to excess calories (Acute) Noncompliance with medication regimen (Acute) Occipital infarction (Acute) Vision loss of right eye (Acute) Hospital Course: HISTORY OF PRESENT ILLNESS: Pt is a 69 year old male with PMHx of Afib on Pradaxa, TIA, CAD s/p cath, HTN. HLD, GIB, YOSELIN on CPAP, obesity s/p gastric bypass presenting after stating he had acute vision loss at 3pm today in both eyes R hemianopsia. Pt state this has not occurred in the past. Pt states it is not painful when looking in a certain direction. ED also states he became A&Ox1 at 7pm as per patients . Pt is now A&O x3 and responding to questions when examined in the ED. Pt was also found to be in AFib with a low HR (50s), but is asymptomatic. Pt states he has not taken his medications for his afib since yesterday (metoprolol, pradaxa) Pt denies fever, chills, SOB, palpitations, loss of sensation. ER course was notable for: (1) Head CT negative for acute pathology (2) EKG with SVR, RBBB; bradycardic; TWI I/II/aVL/V5/V6 (3) ASA 324 once (4) BP noted 188/100 HOSPITAL COURSE Seen by Cardiology and Neurology MRI (reviewed) confirms a subacute left occipital CVA. Carotid duplex doppler- essentially normal Likely acute embolic stroke-- needs to be on Pradaxa BID Pt was not taking it correctly He had dark tarry stools-- EGD done today --> GI Procedure Note: Please see EGD report. Has a resolving NSAID gastritis and no further bleeding. Can continue A/C but should be maintained on PPI indefinitely. Instructed to avoid Advil PM and any NSAID containing drugs Spoke with Cardiology-- He will need pradaxa BID and according to GI -- will need PPI indefinitely Hb stable Pt has visual defect--> Dense right homonomous hemianopsia. He does not drive AVOID DRIVING Pt states his drives him stable for dc home needs follow up in 2 weeks Condition: Stable - Instructions Diet, Activity, Other Instructions: needs to be on Protonix indefinitely Pradaxa twice a day DO NOT DRIVE !! Referrals: Abbey Kennedy MD [Staff Physician] - 2 Weeks Disposition: HOME - Home Medications Comprehensive Discharge Medication List: Ambulatory Orders Furosemide [Lasix] 40 mg PO DAILY 01/14/19 Losartan Potassium [Cozaar -] 50 mg PO DAILY 01/14/19 Atorvastatin Ca [Lipitor] 80 mg PO HS #30 tablet 12/16/19 Dabigatran Etexilate Mesylate [Pradaxa -] 150 mg PO BID #60 cap 12/16/19 Metoprolol Tartrate [Lopressor -] 50 mg PO BID #60 tablet 12/16/19 Pantoprazole Sodium [Protonix -] 40 mg PO DAILY #30 tab 12/16/19
[2019-12-16 15:07] VITALS: BP 144/71; PULSE 72; TEMP 98.5
[2019-12-16] MEDS ORDERED: PANTOPRAZOLE 40 MG TABLET PO SCH (22:00)
== END 2019-12-16 15:00 | disposition home or self-care (01) | DRG 64 ==
LOC: JER 20:54 → JERBED 22:35 → J4S 12-13 21:43
PROVIDERS: ADMIT Internal Medicine; ATTEND Internal Medicine
PROC: 0DJ08ZZ Inspection of Upper Intestinal Tract, Via Natural or Artificial Opening Endoscopic (ICD-10-PCS; principal; 2019-12-16 10:30)
DX: I63.49 Cerebral infarction due to embolism of other cerebral artery (principal); K29.01 Acute gastritis with bleeding; I50.32 Chronic diastolic (congestive) heart failure; I48.11 Longstanding persistent atrial fibrillation; I48.19 Other persistent atrial fibrillation; Z68.42 Body mass index [BMI] 45.0-49.9, adult; I63.9 Cerebral infarction, unspecified; I25.10 Atherosclerotic heart disease of native coronary artery without angina pectoris; G47.33 Obstructive sleep apnea (adult) (pediatric); Z86.73 Personal history of transient ischemic attack (TIA), and cerebral infarction without residual deficits; R42 Dizziness and giddiness; Z79.01 Long term (current) use of anticoagulants; I45.10 Unspecified right bundle-branch block; H53.461 Homonymous bilateral field defects, right side; E66.01 Morbid (severe) obesity due to excess calories; R00.1 Bradycardia, unspecified; E78.00 Pure hypercholesterolemia, unspecified; Z98.84 Bariatric surgery status; I11.0 Hypertensive heart disease with heart failure; I35.0 Nonrheumatic aortic (valve) stenosis; F10.20 Alcohol dependence, uncomplicated; F32.9 Major depressive disorder, single episode, unspecified; Z91.14 Patient's other noncompliance with medication regimen
CPT/HCPCS: 36415; 70450-TC; 70551-TC; 71046-TC-FY; 80048; 80053; 80061; 81003; 82272; 82550; 82553; 82728; 82962; 83540; 83550; 83605; 83721; 83735; 84100; 84484; 85025; 85027; 85045; 85610; 85730; 86140; 86850; 86900; 86901; 93005; 93010; 93880-TC; 94660; 97116-GP; 97161-GP; 99285-25; U0003